=== PATIENT | female | born 1955 | race Two or more races ===

== ENCOUNTER → 2022-11-30 | Outpatient (CLI) | payer OTHER ==
[~2022-11-30] VITALS: Ht 160 cm; Wt 97.1 kg
[~2022-11-30] MED LIST: ADENOSINE 82 MG in GIVE UN-DILUTED 0 ML IV ONE
== END | disposition home or self-care (01) ==
LOC: XYW 07:50
PROVIDERS: ATTEND Specialist
DX: R07.89 Other chest pain (principal); I10 Essential (primary) hypertension; E11.9 Type 2 diabetes mellitus without complications
CPT/HCPCS: 78452; 93017; A9500; J0153

== ENCOUNTER 2023-10-27 00:50 | Inpatient (IN) | payer OTHER ==
[2023-10-27] VITALS (7 sets, daily range): BP systolic 115–159; BP diastolic 63–82; PULSE 69–76; RESP 13–20; TEMP 98.5–98.8; O2SAT 94–98
[~2023-10-27] VITALS: Ht 160 cm; Wt 104.5 kg
[2023-10-27 02:43] LABS: Basophils # (auto) 0.1 10 ^3/uL (0-0.2); Basophils % (auto) 0.7 % (0.0-2.0); Eosinophils # (auto) 0.2 10 ^3/uL (0-0.8); Eosinophils % (auto) 1.8 % (0.0-7.0); Hematocrit 38.1 % (36.0-46.0); Lymphocytes # (auto) 2.1 10 ^3/uL (0.4-5.4); Lymphocytes % (auto) 16.1 % (10.0-50.0); Mean Corpuscular Hemoglobin 30.1 pg (28.0-32.0); Mean Corpuscular Hgb Conc. 34.1 g/dL (32.0-36.0); Mean Corpuscular Volume 88.2 fL (80.0-100.0); Monocytes # (auto) 0.8 10 ^3/uL (0-1.3); Monocytes % (auto) 6.3 % (0.0-12.0); Neutrophils % (auto) 75.1 % (37.0-80.0); Nucleated Red Blood Cells % 0.1 %; Red Blood Cells 4.32 10^6/uL (4.0-5.20); Red Cell Distribution Width 14.6 % (11.8-14.3); White Blood Cell 13.3 10^3/uL (4.4-10.8)
[2023-10-27] MEDS: FUROSEMIDE 40 MG/4 ML VIAL IV ONE (02:44)
[2023-10-27 02:48] LABS: Chloride 106 mmol/L (98-107); Potassium 4.4 mmol/L (3.5-5.1); Sodium 139 mmol/L (136-145)
[2023-10-27 02:49] LABS: Anion Gap 5 (5-15); Calcium 9.7 mg/dL (8.7-10.4); Carbon Dioxide 28 mmol/L (20-30)
[2023-10-27 02:54] LABS: BUN/Creatinine Ratio 14.8 (10.0-20.0); Blood Urea Nitrogen 33 mg/dL (9-23); Glucose 229 mg/dL (74-106)
[2023-10-27 07:40] LABS: Urine Bacteria None Seen /hpf (None Seen)
[2023-10-27 07:55] LABS: Urine Blood TRACE /uL (Negative); Urine Clarity Clear (Clear); Urine Color Colorless (Yellow); Urine Protein, UAD 2+ (Negative); Urine Specific Gravity 1.008 (1.001-1.035); Urine Urobilinogen Normal (Negative); Urine WBC 2 /hpf (0 - 5)
[2023-10-27] MEDS ORDERED: HYDROcodone-ACET 5/325MG TAB PO PRN (10:00)
[2023-10-27] MEDS ORDERED: MORPHINE SULFATE INJ 2 MG/ml SYRG IV PRN (10:00)
[2023-10-27] MEDS ORDERED: NITROGLYCERIN 0.4 MG SL TAB SL PRN (10:00)
[2023-10-27] MEDS: POTASSIUM CHL 20 Meq TABLET PO SCH (10:06)
[2023-10-27] MEDS: FUROSEMIDE 40 MG/4 ML VIAL IV SCH (10:06)
[2023-10-27] MEDS: cefTRIAXone 1GM/50ML D5W 50 ML IV ONE (10:14)
[2023-10-27] MEDS: CARVEDILOL 12.5 MG TAB PO ONE (10:14)
[2023-10-27] MEDS: ENOXAPARIN SOD 30 MG/0.3 ML SYRINGE SC SCH (10:14)
[2023-10-27] MEDS: SODIUM CHLORIDE 0.9% 1,000 ML IV SCH (11:02)
[2023-10-27] MEDS: ACETAMINOPHEN 325 MG TAB PO PRN (12:31)
[2023-10-27 13:29] LABS: Protein, Urine 187.5 mg/dL (0.0-11.9)
[2023-10-27] MEDS: DOXYCYCLINE 100MG/250ML 250 ML IV SCH (13:30)
[2023-10-27 13:32] LABS: Creatinine, Urine 18.77 mg/dL (30.0-125.0); Urine Protein/Creatinine Ratio 9.99
[2023-10-27] MEDS ORDERED: DEXTROSE (50%) 50ML SYRG IV PRN ×2 (13:45→20:15)
[2023-10-27] MEDS: DOXYCYCLINE 100MG/250ML 250 ML IV ONE (14:57)
[2023-10-27 15:37] LABS: Alanine Aminotransferase 13 U/L (7-40); Albumin 3.3 g/dL (3.2-4.8); Alkaline Phosphatase 81 U/L (46-116); Anion Gap 10 (5-15); Aspartate Aminotransferase 13 U/L (13-40); BUN/Creatinine Ratio 15.6 (10.0-20.0); Blood Urea Nitrogen 36 mg/dL (9-23); Calcium 9.3 mg/dL (8.7-10.4); Carbon Dioxide 22 mmol/L (20-30); Chloride 106 mmol/L (98-107); Glucose 286 mg/dL (74-106); Potassium 4.5 mmol/L (3.5-5.1); Sodium 138 mmol/L (136-145)
[2023-10-27 15:38] LABS: Bilirubin, Total 0.5 mg/dL (0.2-1.0); Total Protein 5.8 g/dL (5.7-8.2)
[2023-10-27] MEDS: ACCU-CHEK COMFORT CURVE STRIP VI SCH ×2 (17:36→22:14)
[2023-10-27] MEDS: InsuLIN REG 1unit/0.01ml Soln (100units/ml) SC SCH ×2 (17:37→22:01)
[2023-10-27] MEDS: HEPARIN SODIUM (PORCINE) 5000 UNITS/ML 1ML VIAL SC SCH (22:05)
[2023-10-28] VITALS (8 sets, daily range): BP systolic 97–153; BP diastolic 65–81; PULSE 63–77; RESP 16–19; TEMP 97.7–99; O2SAT 93–97
[2023-10-28] MEDS: DOCUSATE SOD 100 MG CAP PO PRN (01:27)
[2023-10-28] MEDS: InsuLIN REG 1unit/0.01ml Soln (100units/ml) SC SCH (05:39)
[2023-10-28 07:32] LABS: Alanine Aminotransferase 13 U/L (7-40); Alkaline Phosphatase 81 U/L (46-116); Anion Gap 6 (5-15); Aspartate Aminotransferase 16 U/L (13-40); BUN/Creatinine Ratio 15.2 (10.0-20.0); Blood Urea Nitrogen 34 mg/dL (9-23); Calcium 9.2 mg/dL (8.7-10.4); Carbon Dioxide 26 mmol/L (20-30); Chloride 107 mmol/L (98-107); Glucose 104 mg/dL (74-106); Potassium 3.9 mmol/L (3.5-5.1); Sodium 139 mmol/L (136-145)
[2023-10-28 07:33] LABS: Albumin 3.2 g/dL (3.2-4.8)
[2023-10-28 07:34] LABS: Bilirubin, Total 0.5 mg/dL (0.2-1.0); Total Protein 5.7 g/dL (5.7-8.2)
[2023-10-28 07:40] LABS: Basophils # (auto) 0.1 10 ^3/uL (0-0.2); Basophils % (auto) 0.7 % (0.0-2.0); Eosinophils # (auto) 0.2 10 ^3/uL (0-0.8); Eosinophils % (auto) 2.1 % (0.0-7.0); Hematocrit 31.6 % (36.0-46.0); Hemoglobin 11.3 g/dL (12.2-16.2); Lymphocytes # (auto) 2.2 10 ^3/uL (0.4-5.4); Lymphocytes % (auto) 29.4 % (10.0-50.0); Mean Corpuscular Hemoglobin 33.3 pg (28.0-32.0); Mean Corpuscular Hgb Conc. 35.7 g/dL (32.0-36.0); Mean Corpuscular Volume 93.3 fL (80.0-100.0); Monocytes # (auto) 0.7 10 ^3/uL (0-1.3); Monocytes % (auto) 8.5 % (0.0-12.0); Neutrophils # (auto) 4.5 10 ^3/uL (1.6-8.6); Neutrophils % (auto) 59.3 % (37.0-80.0); Red Blood Cells 3.39 10^6/uL (4.0-5.20); Red Cell Distribution Width 14.4 % (11.8-14.3); White Blood Cell 7.6 10^3/uL (4.4-10.8)
[2023-10-28] MEDS: cefTRIAXone 1GM/50ML D5W 50 ML IV SCH (09:25)
[2023-10-28] MEDS ORDERED: DIPH-751 PO (10:22)
[2023-10-28] MEDS ORDERED: SERT-206 PO (10:22)
[2023-10-28] MEDS ORDERED: CYCL-839 PO (10:22)
[2023-10-28] MEDS ORDERED: CARV-214 OR (10:22)
[2023-10-28] MEDS ORDERED: FURO20TA3 PO (10:22)
[2023-10-28] MEDS ORDERED: ATOR-507 PO (10:22)
[2023-10-28] MEDS ORDERED: ALEN70TA74 PO (10:22)
[2023-10-28] MEDS ORDERED: GABA-1250 PO (10:22)
[2023-10-28] MEDS ORDERED: FINE20TA PO (10:22)
[2023-10-28] MEDS ORDERED: ASPI-543 PO (10:22)
[2023-10-28] MEDS ORDERED: LINA145C OR (10:22)
[2023-10-28] MEDS ORDERED: SUMA25TA2 PO (10:22)
[2023-10-28] MEDS ORDERED: AML5T PO (10:22)
[2023-10-28] MEDS: GABAPENTIN 300 MG CAP PO ONE (16:08)
[2023-10-28] MEDS: hydrALAZINE HCL 20 MG/ML VL IV PRN (16:09)
[2023-10-28] MEDS: GABAPENTIN 300 MG CAP PO SCH (22:16)
[2023-10-29 05:00] VITALS: BP 158/61; PULSE 73; RESP 18; TEMP 98.4; O2SAT 98
[2023-10-29 08:00] VITALS: PULSE 62; PULSE 64; RESP 16; O2SAT 96
[2023-10-29 08:42] VITALS: BP 132/71; PULSE 64; RESP 16; TEMP 98.9; O2SAT 96
[2023-10-29 12:44] VITALS: BP 122/59; PULSE 70; RESP 19; TEMP 98.7; O2SAT 95
[2023-10-29] MEDS ORDERED: DOXY-448 PO (13:49)
[2023-10-29 14:27] VITALS: BP 153/77; PULSE 69; TEMP 37.1; O2SAT 96
== END 2023-10-29 17:15 | disposition home or self-care (01) | DRG 603 ==
LOC: ER 00:50 → TELE 09:55 → TELE-WESTW 14:21
PROVIDERS: ADMIT Nurse Practitioner Family; ATTEND Nurse Practitioner Family
DX: L03.116 Cellulitis of left lower limb (principal); I13.0 Hypertensive heart and chronic kidney disease with heart failure and stage 1 through stage 4 chronic kidney disease, or unspecified chronic kidney disease; N17.9 Acute kidney failure, unspecified; Z68.41 Body mass index [BMI] 40.0-44.9, adult; I50.32 Chronic diastolic (congestive) heart failure; N18.32 Chronic kidney disease, stage 3b; E11.22 Type 2 diabetes mellitus with diabetic chronic kidney disease; E78.00 Pure hypercholesterolemia, unspecified; I45.10 Unspecified right bundle-branch block; E66.9 Obesity, unspecified; Z79.4 Long term (current) use of insulin; Z79.899 Other long term (current) drug therapy
CPT/HCPCS: 36415; 71045; 73610; 73700; 76775; 80048; 80053; 81001; 82570; 82962; 83036; 83880; 84156; 84443; 84484; 85025; 85379; 93005; 93306; 93971; 96365; 96372; 96375; G0378; J1815; J3490

== ENCOUNTER → 2024-07-21 | Outpatient (CLI) | payer OTHER ==
[~2024-07-21] MED LIST changes: -ADENOSINE 82 MG in GIVE UN-DILUTED 0 ML IV ONE; +ALEN70TA74 PO; +AML5T PO; +ASPI-543 PO; +ATOR-507 PO; +CARV-214 OR; +DOXY100C79 PO; +FINE20TA PO; +FURO20TA3 PO; +GABA-1250 PO; +LINA145C OR; +SERT-206 PO; +SUMA25TA2 PO
[2024-07-21 09:43] LABS: Urine Bacteria None Seen /hpf (None Seen)
[2024-07-21 10:00] LABS: Urine Blood 1+ /uL (Negative); Urine Clarity Clear (Clear); Urine Color Light-Yellow (Yellow); Urine Mucus FEW (None Seen); Urine Protein, UAD 3+ (Negative); Urine Specific Gravity 1.016 (1.001-1.035); Urine Squamous Epithelial Cell FEW /hpf (<5); Urine Urobilinogen Normal (Negative); Urine WBC 3 /HPF (0-5)
[2024-07-21 10:16] LABS: Alanine Aminotransferase 17 U/L (7-40); Alkaline Phosphatase 81 U/L (46-116); Anion Gap 10 (5-15); Aspartate Aminotransferase 18 U/L (13-40); BUN/Creatinine Ratio 15.2 (10.0-20.0); Basophils # (auto) 0.1 10 ^3/uL (0-0.2); Basophils % (auto) 0.6 % (0.0-2.0); CRP High Sensitivity 0.25 mg/dL (<1.0); Calcium 9.2 mg/dL (8.7-10.4); Carbon Dioxide 22 mmol/L (20-31); Cholesterol 149 mg/dL (< 200); Eosinophils # (auto) 0.3 10 ^3/uL (0-0.8); Eosinophils % (auto) 3.6 % (0.0-7.0); Hematocrit 33.9 % (36.0-46.0); Hemoglobin 11.4 g/dL (12.2-16.2); LDL Cholesterol 67 mg/dL (< 100); Lymphocytes # (auto) 1.6 10 ^3/uL (0.4-5.4); Lymphocytes % (auto) 18.9 % (10.0-50.0); Mean Corpuscular Hgb Conc. 33.5 g/dL (32.0-36.0); Mean Corpuscular Volume 92.6 fL (80.0-100.0); Monocytes # (auto) 0.6 10 ^3/uL (0-1.3); Monocytes % (auto) 6.6 % (0.0-12.0); Neutrophils % (auto) 70.3 % (37.0-80.0); Platelet Count (auto) 235 10^3/uL (140-450); Potassium 4.7 mmol/L (3.5-5.1); Red Blood Cells 3.66 10^6/uL (4.0-5.20); Red Cell Distribution Width 14.6 % (11.8-14.3); Sodium 142 mmol/L (136-145); Total Protein 6.8 g/dL (5.7-8.2); White Blood Cell 8.5 10^3/uL (4.4-10.8)
[2024-07-21 10:18] LABS: Bilirubin, Total 0.3 mg/dL (0.2-1.0); Blood Urea Nitrogen 51 mg/dL (9-23); Chloride 110 mmol/L (98-107); Glucose 237 mg/dL (74-106); HDL Cholesterol 37 mg/dL (40-59); Triglycerides 231 mg/dL (< 150)
[2024-07-21 10:43] LABS: Erythrocyte Sedimentation Rate 71 mm/hr (0-20)
[2024-07-22 08:07] LABS: Complement C3 142 mg/dL (82-167)
[2024-07-22 14:07] LABS: Anti-dsDNA Antibody 12 IU/mL (0-9)
== END | disposition home or self-care (01) ==
LOC: LAB 09:08
PROVIDERS: ATTEND Internal Medicine Rheumatology
DX: I12.9 Hypertensive chronic kidney disease with stage 1 through stage 4 chronic kidney disease, or unspecified chronic kidney disease (principal); E11.22 Type 2 diabetes mellitus with diabetic chronic kidney disease; N18.9 Chronic kidney disease, unspecified; M32.9 Systemic lupus erythematosus, unspecified; M25.50 Pain in unspecified joint
CPT/HCPCS: 36415; 80053; 80061; 81001; 82043; 83036; 85025; 85652; 86141; 86160; 86225

== ENCOUNTER → 2024-08-11 | Outpatient (CLI) | payer MEDICAID ==
[2024-08-11 11:53] LABS: Alanine Aminotransferase 15 U/L (7-40); Albumin 3.6 g/dL (3.2-4.8); Alkaline Phosphatase 84 U/L (46-116); Anion Gap 9 (5-15); Aspartate Aminotransferase 14 U/L (13-40); BUN/Creatinine Ratio 17.3 (10.0-20.0); Calcium 8.9 mg/dL (8.7-10.4); Carbon Dioxide 23 mmol/L (20-31); LDL Cholesterol 77 mg/dL (< 100); Sodium 141 mmol/L (136-145); Total Protein 6.1 g/dL (5.7-8.2)
[2024-08-11 11:54] LABS: Bilirubin, Total 0.4 mg/dL (0.2-1.0); Cholesterol 142 mg/dL (< 200)
[2024-08-11 12:00] LABS: Blood Urea Nitrogen 52 mg/dL (9-23); Chloride 109 mmol/L (98-107); Glucose 257 mg/dL (74-106); HDL Cholesterol 35 mg/dL (40-59); Triglycerides 161 mg/dL (< 150)
[2024-08-11 12:35] LABS: Creatinine, Urine 74.98 mg/dL (30.0-125.0)
[2024-08-11 12:51] LABS: Micro Albumin > 3800.0 mg/L (<30.0)
== END | disposition home or self-care (01) ==
LOC: LAB 10:50
PROVIDERS: ATTEND Internal Medicine Endocrinology, Diabetes & Metabolism
DX: E11.65 Type 2 diabetes mellitus with hyperglycemia (principal)
CPT/HCPCS: 36415; 80053; 80061; 82043; 82570; 83036

== ENCOUNTER 2024-09-21 11:01 | Outpatient (CLI) | payer MEDICAID ==
[2024-09-21 11:23] LABS: Basophils # (auto) 0.1 10 ^3/uL (0-0.2); Eosinophils # (auto) 0.3 10 ^3/uL (0-0.8); Eosinophils % (auto) 3.6 % (0.0-7.0); Hematocrit 29.7 % (36.0-46.0); Hemoglobin 10.4 g/dL (12.2-16.2); Lymphocytes # (auto) 1.5 10 ^3/uL (0.4-5.4); Mean Corpuscular Hemoglobin 31.5 pg (28.0-32.0); Mean Corpuscular Volume 90.1 fL (80.0-100.0); Monocytes # (auto) 0.5 10 ^3/uL (0-1.3); Monocytes % (auto) 6.7 % (0.0-12.0); Neutrophils % (auto) 68.7 % (37.0-80.0); Nucleated Red Blood Cells % 0.1 %; Platelet Count (auto) 193 10^3/uL (140-450); Red Cell Distribution Width 14.8 % (11.8-14.3); White Blood Cell 7.3 10^3/uL (4.4-10.8)
[2024-09-21 12:05] LABS: Alanine Aminotransferase 24 U/L (7-40); Albumin 3.6 g/dL (3.2-4.8); Alkaline Phosphatase 75 U/L (46-116); Anion Gap 10 (5-15); Aspartate Aminotransferase 26 U/L (<34); BUN/Creatinine Ratio 13.8 (10.0-20.0); Calcium 9.1 mg/dL (8.7-10.4); Carbon Dioxide 23 mmol/L (20-31); Magnesium 2.1 mg/dL (1.6-2.6); Potassium 4.9 mmol/L (3.5-5.1); Sodium 144 mmol/L (136-145)
[2024-09-21 12:06] LABS: Phosphorus 4.6 mg/dL (2.4-5.1)
[2024-09-21 12:07] LABS: Bilirubin, Total 0.3 mg/dL (0.2-1.0); Blood Urea Nitrogen 48 mg/dL (9-23); Chloride 111 mmol/L (98-107); Glucose 142 mg/dL (74-106)
== END 2024-09-21 17:00 | disposition home or self-care (01) ==
LOC: LAB 11:01
PROVIDERS: ATTEND Internal Medicine Nephrology
DX: E11.22 Type 2 diabetes mellitus with diabetic chronic kidney disease (principal); E11.21 Type 2 diabetes mellitus with diabetic nephropathy; E21.3 Hyperparathyroidism, unspecified; E03.9 Hypothyroidism, unspecified; N18.30 Chronic kidney disease, stage 3 unspecified; M10.9 Gout, unspecified; E55.9 Vitamin D deficiency, unspecified; N39.0 Urinary tract infection, site not specified; D63.1 Anemia in chronic kidney disease; R80.9 Proteinuria, unspecified
CPT/HCPCS: 36415; 80053; 82306; 83036; 83735; 83970; 84100; 84439; 84443; 85025

== ENCOUNTER 2024-10-09 13:02 | Emergency (ER) | payer MEDICAID ==
[~2024-10-09] VITALS: Ht 160 cm; Wt 102.3 kg
--- NOTE | 2024-10-09 13:42 | ED.PDOC ---
GI ASSESSMENT HPI Comments 69 year old female with a Hx of CKF, DM, High lipids, and HTN was BIBA for the c/c of N/V with associated Dizziness. Per EMS pt has stage 5 CKD and needs dialysis, but is afraid of being Dialyzed. Pt also notes of SOB with her RA being 90% on route. No other associated symptoms, modifiers, recent injuries or sick contacts present at this time. Chief Complaint: Nausea/Vomiting Time Seen by MD: 13:36 Primary Care Provider: MIRTHA Reviewed Notes: Nurses Notes, Certified Legal Secretary Specialist Notes, Medications, Allergies Allergies: Coded Allergies: NO KNOWN ALLERGIES (Unverified , 11/30/22) Home Meds Active Scripts Sulfamethoxazole W/Trimethopri (Bactrim Ds Tablet) 1 Tab Tb, 1 TAB PO BID for 7 Days, #14 TAB Prov:MIHAI MORALES MD 10/09/24 Doxycycline (Monohydrate) (Doxycycline) 100 Mg Cap, 100 MG PO BID for 14 Days, #28 CAP Prov:MEGAN CASTLE PORCELAIN SLUSHER 10/29/23 Reported Medications Sumatriptan Succinate (Sumatriptan Succinate) 25 Mg Tab, 25 MG PO, MG 10/28/23 Amlodipine Besylate (NORVASC TABLET) 5 Mg Tb, 2 TAB PO DAILY, #30 TAB 5 Refills 10/28/23 Linaclotide Base (LINZESS) 145 Mcg Cap, 145 MCG OR, CAP 10/28/23 Carvedilol (COREG) 3.125 Mg Tab, 3.125 MG OR, TAB 10/28/23 Sertraline Hcl (Sertraline Hcl) 50 Mg Tab, 25 MG PO DAILY for 30 Days, MG 10/28/23 Alendronate Sodium (Alendronate Sodium) 70 Mg Tab, 70 MG PO Q7D, TAB 10/28/23 Aspirin (Aspir-Low) 81 Mg Tab, 81 MG PO DAILY for 30 Days, MG 10/28/23 Finerenone (Kerendia) 20 Mg Tab, 20 MG PO DAILY, TAB 10/28/23 Gabapentin (Gabapentin) 300 Mg Cap, 300 MG PO BID for 30 Days, MG 10/28/23 Atorvastatin Calcium (Lipitor) 40 Mg Tab, 1 TAB PO DAILY, #30 TAB 5 Refills 10/28/23 Furosemide (Furosemide) 20 Mg Tab, 20 MG PO BIDD for 30 Days, MG 10/28/23 Information Source: Patient, Emergency Med Personnel Mode of Arrival: EMS Timing: Days Duration: Since onset, Days Prehospital treatment: Oxygen Quality: None Vomitus: Watery Stool: Normal Severity: Moderate Recent: None Recent Hx of: Diabetes Pain Location: Diffuse Modifying Factors: Exertion, Food, Position, Movement Associated sign and symptoms: Nausea, Vomiting Past Medical History PAST MEDICAL HISTORY: CKF, DM, High Lipids, HTN Surgical History: Cholecystectomy 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 History Family History Family History: Unknown Social History Smoker: Non-Smoker Alcohol: Denies ETOH Use Drugs: Denies Drug Use Lives In: Home Constitutional: denies: chills, diaphoresis, fatigue, fever, malaise, sweats, weakness, others EENTM: denies: blurred vision, double vision, ear bleeding, ear discharge, ear drainage, ear pain, ear ringing, eye pain, eye redness, hearing loss, mouth pain, mouth swelling, nasal discharge, nose bleeding, nose congestion, nose pain, photophobia, tearing, throat pain, throat swelling, voice changes, others Respiratory: denies: cough, hemoptysis, orthopnea, SOB at rest, shortness of breath, SOB with excertion, stridor, wheezing, others Cardiovascular: denies: chest pain, dizzy spells, diaphoresis, Dyspnea on exertion, edema, irregular heart beat, left arm pain, lightheadedness, palpitations, PND, syncope, others Gastrointestinal: reports: nausea, vomiting; denies: abdomen distended, abdominal pain, blood streaked bowels, constipated, diarrhea, dysphagia, difficulty swallowing, hematemesis, melena, poor appetite, poor fluid intake, rectal bleeding, rectal pain, others Genitourinary: denies: abnormal vagina bleeding, burning, dyspareunia, dysuria, flank pain, frequency, hematuria, incontinence, pain, , vagina discharge, urgency, others Neurological: denies: dizziness, fainting, headache, left sided numbness, left sided weakness, numbness, paresthesia, pre-existing deficit, right sided numbness, right sided weakness, seizure, speech problems, tingling, tremors, weakness, others Musculoskeletal: denies: back pain, gout, joint pain, joint swelling, muscle pain, muscle stiffness, neck pain, others Integumetry: denies: bruises, change in color, change in hair/nails, dryness, laceration, lesions, lumps, rash, wounds, others Allergic/Immunocompromised: denies: Difficulty Healing, Frequent Infections, Hives, Itching, others Hematologic/Lymphatic: denies: anemia, blood clots, easy bleeding, easy bruising, swollen glands, others Endocrine: denies: excessive hunger, excessive sweating, excessive thirst, excessive urination, flushing, intolerance to cold, intolerance to heat, unexplained weight gain, unexplained weight loss, others Psychiatric: denies: anxiety, bipolar disorder, depression, hopeless, panic disorder, schizophrenia, sleepless, suicidal, others All Other Systems: Reviewed and Negative Physical Exam General Appearance: Moderate Distress, Normal HEENT: Normal ENT Inspection, Pharynx Normal, TMs Normal Neck: Full Range of Motion, Non-Tender, Normal, Normal Inspection Respiratory: Chest Non-Tender, Lungs Clear, No Accessory Muscle Use, No Respiratory Distress, Normal Breath Sounds Cardiovascular: No Edema, No JVD, No Murmur, No Gallop, Normal Peripheral Pulses, Regular Rate/Rhythm Breast Exam: Deferred Gastrointestinal: No Organomegaly, Non Tender, No Pulsatile Mass, Normal Bowel Sounds, Soft Genitalia: Deferred Pelvic: Deferred Rectal: Deferred Extremities: No calf tenderness, Normal capillary refill, Normal inspection, Normal range of motion, Non-tender, No pedal edema Musculoskeletal : Apperance: Normal Neurologic: Alert, soil and plant scientist II-XII nml as Tested, No Motor Deficits, Normal Affect, Normal Mood, No Sensory Deficits Cerebellar Function: Normal Reflexes: Normal Skin: Dry, Normal Color, Warm Peripheral Pulses: 3+ Radial (R), 3+ Radial (L) Lymphatic: No Adenopathy Was a procedure done? Was a procedure done?: No GI differential Dx Differential Diagnosis: Bowel Obstruction, Cholangitis, Cholecystitis, Constipation, Diverticular disease, Dysmenorrhea, Esophagitis, Gastritis/PUD, Gastroenteritis, GI hemorrhage, Inflammatory BD, Ovarian cyst/torsion, Pancreatitis, Urinary Obstruction, Urolithiasis, Dehydration, Electrolyte Imbalance X-Ray, Labs, Meds, VS Vital Signs Date Time Temp Pulse Resp B/P (MAP) Pulse Ox O2 Delivery O2 Flow Rate FiO2 10/09/24 16:00 68 12 140/76 (97) 96 10/09/24 14:00 68 12 96 Nasal Cannula* 1 24 10/09/24 14:00 98.6 68 12 148/76 (100) 96 98.6 10/09/24 13:28 98.1 68 16 161/78 (105) 96 98.1 Lab Test 10/09/24 14:00 10/09/24 13:47 Range/Units Urine Color Light-yellow Yellow Urine Clarity Clear Clear Urine pH 6.5 5.0-9.0 Urine Specific [place] 1.014 1.001-1.035 Urine Protein 3+ H Negative Urine Ketones Negative Negative Urine Blood Trace H Negative /uL Urine Nitrite Negative Negative Urine Bilirubin Negative Negative Urine Urobilinogen Normal Negative mg/dL Urine Leukocyte Esterase Negative Negative /uL Urine RBC None seen 0 - 4 /hpf Urine Microscopic WBC 3 0-5 /HPF Urine Squamous Epithelial Cells Few <5 /hpf Urine Bacteria Few H None Seen /hpf Urine Glucose 2+ H Normal mg/dL White Blood Count 11.7 H 4.4-10.8 10^3/uL Red Blood Count 3.86 L 4.0-5.20 10^6/uL Hemoglobin 11.6 L 12.2-16.2 g/dL Hematocrit 34.6 L 36.0-46.0 % Mean Corpuscular Volume 89.6 80.0-100.0 fL Mean Corpuscular Hemoglobin 30.1 28.0-32.0 pg Mean Corpuscular Hemoglobin Concent 33.6 32.0-36.0 g/dL Red Cell Distribution Width 13.8 11.8-14.3 % Platelet Count 238 140-450 10^3/uL Mean Platelet Volume 10.3 6.9-10.8 fL Neutrophils (%) (Auto) 83.2 H 37.0-80.0 % Lymphocytes (%) (Auto) 10.3 10.0-50.0 % Monocytes (%) (Auto) 4.4 0.0-12.0 % Eosinophils (%) (Auto) 1.5 0.0-7.0 % Basophils (%) (Auto) 0.6 0.0-2.0 % Neutrophils # (Auto) 9.8 H 1.6-8.6 10 ^3/uL Lymphocytes # (Auto) 1.2 0.4-5.4 10 ^3/uL Monocytes # (Auto) 0.5 0-1.3 10 ^3/uL Eosinophils # (Auto) 0.2 0-0.8 10 ^3/uL Basophils # (Auto) 0.1 0-0.2 10 ^3/uL Nucleated Red Blood Cells 0.0 % Sodium Level 144 136-145 mmol/L Potassium Level 3.6 3.5-5.1 mmol/L Chloride Level 104 98-107 mmol/L Carbon Dioxide Level 29 20-31 mmol/L Anion Gap 11 5-15 Blood Urea Nitrogen 98 *H 9-23 mg/dL Creatinine 4.31 H 0.550-1.02 mg/dL Glomerular Filtration Rate Calc 10 >90 mL/min BUN/Creatinine Ratio 22.7 H 10.0-20.0 Serum Glucose 202 H 74-106 mg/dL Calcium Level 9.3 8.7-10.4 mg/dL Troponin I High Sensitivity 29 </=34 ng/L PATIENT: YASMANI BIRMINGHAM ACCT: [id number] UNIT: [id number] : 1955 LOC: ER ROOM / BED: / AGE / SEX: 69 / F ADM STATUS: REG ER SERVICE 1335 ORDERING PHYSICIAN: MIHAI MORLAES MD PROCEDURE(s): CXRP - CHEST PORTABLE REASON: sob ORDER NUMBER(s): [id number], ACCESSION NUMBER(s): [id number] EXAM: XY CHEST PORTABLE HISTORY: sob COMPARISON: For reasons unknown, chest x-ray dated 10/27/2023 was not made available in the PACS system for viewing. TECHNIQUE: Portable AP view of the chest was performed. FINDINGS: No no pneumothorax or consolidative infiltrates. There is central interstitial prominence, although this appearance is likely exaggerated by abundant overlying soft tissue. The heart is borderline enlarged. IMPRESSION: Central interstitial prominence may be due to reactive airways disease or mild CHF, versus artifactual appearance related to the patient's large body habitus. Patient alert. Vitals stable. Chronic history. Blood sugar slightly elevated. Cardiac marker within normal limits pain Chest x-ray reviewed does show some fluid. She is waiting for tunneled catheter for possible dialysis. Urine does have mild bacteria. Kidney function elevated. Possibly any dialysis. Patient insists on going home. Abdomen is soft nontender. No sepsis. Mentating well. Pristine neurological exam. Was told to come back to get a tunneled catheter on Saturday. Possible pneumonitis. Was given prescription of Bactrim antibiotic. Explained to the patient. Continue monitoring. Was told to follow up with her primary care physician. Was told to come back if there is any problem. Time of 1ST Reevaluation: 14:07 Reevaluation 1ST: Improved Patient Education/Counseling: Diagnosis, Treatment, Need For Follow Up Family Education/Counseling: No Family Present SEPSIS Sepsis Screen Date sepsis recognized/suspect: Oct 09, 2024 Time Sepsis recognized/suspect: 1304 Recent Procedure: No On Antibiotic Therapy: No Respiratory Rate >20: No Heart Rate >90: No Temp<36 C (96.8 F) or >38.3 C: No SBP <90 or MAP <65 mmHG: No New Acute Mental Status Change: No Is the patient on CPAP, BIPAP,: No Physician Orders Chest Portable (10/09/24 13:35) Piperacillin-Tazob 3.375gm (Zosyn 3.375g (10/09/24 17:45) Vital Signs Date Time Temp Pulse Resp B/P (MAP) Pulse Ox O2 Delivery O2 Flow Rate FiO2 10/09/24 16:00 68 12 140/76 (97) 96 10/09/24 14:00 68 12 96 Nasal Cannula* 1 24 10/09/24 14:00 98.6 68 12 148/76 (100) 96 98.6 10/09/24 13:28 98.1 68 16 161/78 (105) 96 98.1 Laboratory Tests Test 10/09/24 13:47 White Blood Count 11.7 10^3/uL (4.4-10.8) H Departure 1 Departure Time of Disposition: 16:18 Impression: Primary Impression: Pneumonitis Additional Impressions: Chronic kidney disease Qualified Codes: N18.9 - Chronic kidney disease, unspecified Uncontrolled diabetes mellitus Qualified Codes: E13.65 - Other specified diabetes mellitus with hyperglycemia Disposition: 01 HOME / SELF CARE / HOMELESS Condition: Good e-Prescriptions Sulfamethoxazole W/Trimethopri (Bactrim Ds Tablet) 1 Tab Tb 1 TAB PO BID for 7 Days, #14 TAB Prov: MIHAI MORALES MD 10/09/24 Discharged With: Self Critical Care Note Critical Care Time?: No Stability Stability form required: No Heart Score Heart Score: Heart Score Response (Comments) Value History N/A 0 EKG N/A 0 Age N/A 0 Risk Factors N/A 0 Troponin N/A 0 Total 0 I personally scribed for MIHAI MORALES MD ([email or web address]) on 10/09/24 at 13:42. Electronically submitted by Javid Petty ([email or web address]). I personally scribed for MIHAI MORALES MD ([email or web address]) on 10/09/24 at 14:20. Electronically submitted by Javid Petty ([email or web address]). MIHAI MORALES MD Oct 09, 2024 13:42
[2024-10-09 14:00] VITALS: PULSE 68; RESP 12; TEMP 98.6; O2SAT 96
[2024-10-09 14:04] LABS: Hematocrit 34.6 % (36.0-46.0); Hemoglobin 11.6 g/dL (12.2-16.2); Mean Corpuscular Hemoglobin 30.1 pg (28.0-32.0); Mean Corpuscular Volume 89.6 fL (80.0-100.0); Nucleated Red Blood Cells % 0.0 %
[2024-10-09 14:12] LABS: Chloride 104 mmol/L (98-107); Potassium 3.6 mmol/L (3.5-5.1); Sodium 144 mmol/L (136-145)
[2024-10-09 14:13] LABS: Anion Gap 11 (5-15); Calcium 9.3 mg/dL (8.7-10.4); Carbon Dioxide 29 mmol/L (20-31)
--- NOTE | 2024-10-09 14:17 | DVH ---
EXAM: XY CHEST PORTABLE HISTORY: sob COMPARISON: For reasons unknown, chest x-ray dated 10/27/2023 was not made available in the PACS syst em for viewing. TECHNIQUE: Portable AP view of the chest was performed. FINDINGS: No no pneumothorax or consolidative infiltrates. There is central interstitial prominence, although this appearance is likely exaggerated by abundant overlying soft tissue. The heart is borderline enla rged. IMPRESSION: Central interstitial prominence may be due to reactive airways disease or mild CHF, versus artifactua l appearance related to the patient's large body habitus.
[2024-10-09 14:18] LABS: BUN/Creatinine Ratio 22.7 (10.0-20.0); Glucose 202 mg/dL (74-106)
[2024-10-09 14:20] LABS: Blood Urea Nitrogen 98 mg/dL (9-23)
[2024-10-09 14:34] LABS: Urine Protein, UAD 3+ (Negative)
[2024-10-09] MEDS ORDERED: BACDST PO (17:30)
[2024-10-09] MEDS: PIPERACILLIN-TAZOB 3.375GM 100 ML IV ONE (17:45)
[2024-10-09 18:00] VITALS: BP 145/74; PULSE 69; RESP 12; O2SAT 97
== END 2024-10-09 19:04 | disposition home or self-care (01) ==
LOC: ER 13:02 → EDBD 13:02 → ER 19:04
DX: J98.4 Other disorders of lung (principal); I12.0 Hypertensive chronic kidney disease with stage 5 chronic kidney disease or end stage renal disease; E11.22 Type 2 diabetes mellitus with diabetic chronic kidney disease; N18.5 Chronic kidney disease, stage 5; E11.65 Type 2 diabetes mellitus with hyperglycemia; Z90.49 Acquired absence of other specified parts of digestive tract; Z79.82 Long term (current) use of aspirin; Z79.899 Other long term (current) drug therapy
CPT/HCPCS: 36415; 71045; 80048; 81001; 84484; 85025; 96365; 99284; J2543

== ENCOUNTER 2024-10-13 15:13 | Inpatient (IN) | payer MEDICAID ==
[~2024-10-13] VITALS: Ht 160 cm; Wt 101.0 kg
[~2024-10-13 15:13] MED LIST changes: +BACDST PO
--- NOTE | 2024-10-13 15:56 | ECG ---
[facility] Test Date: 2024-10-13 Test Time: 15:37:29 Pat Name: YASMANI BIRMINGHAM Department: ER Room: [facility] Gender: F Public Information Officer: COLT : 1955 Requested By: LIANNA MEAD Order Number: [id number] Reading MD: Meng Cavanaugh Measurements Intervals [place] Rate: 71 P: 19 AR: 192 QRS: -64 QRSD: 176 T: 4 QT: 462 QTc: 503 Interpretive Statements Sinus rhythm RBBB and LAFB Baseline wander in lead(s) III,aVF Electronically Signed On 10-15-2024 19:03:43 PDT by Meng Cavanaugh Please click the below link to view image of tracing.
--- NOTE | 2024-10-13 16:22 | DVH ---
CHEST RADIOGRAPH Indication: gen weak, dizzy/ nausea. Technique: Single frontal view of the chest was obtained Comparison: XY CHEST PORTABLE on DOS: 10/09/24, XY CHEST PORTABLE on DOS: 10/27/23 FINDINGS: Lines and Tubes: None Lungs: No focal consolidation. Pleura: No effusion. No pneumothorax. Cardiomediastinal contours: Unremarkable Bones: No acute osseous abnormality. IMPRESSION: 1. No acute cardiopulmonary disease.
[2024-10-13 16:38] LABS: Hematocrit 32.2 % (36.0-46.0); Hemoglobin 11.0 g/dL (12.2-16.2); Mean Corpuscular Hemoglobin 30.6 pg (28.0-32.0); Mean Corpuscular Volume 89.7 fL (80.0-100.0); Nucleated Red Blood Cells % 0.0 %
--- NOTE | 2024-10-13 16:45 | ED.PDOC ---
History of Present Illness HPI Comments HPI: 69 y/o F, with PMHx of DM, HTN, HLD, and thyroid disease presents to the ED for CC of dizziness. Patient states, she has been experiencing dizziness with associated symptoms of nausea and weakness x1week . Patient reports, that she was recently prescribed Bactrim antibiotics for an ear infection on Saturday (); and is unaware if symptoms may be related to new medication. Patient denies headache, vomiting, or lightheadedness. No other symptoms or modifying factors present at this time. Patient later indicated that she has some kidney disease and is supposed to get dialysis soon but has not started yet. Initial Vitals BP: 145/62 HR: 74 RR: 20 O2: 97% room air Temp: 98.7 F Past Medical History: DM, HTN, HLD, THYROID DISEASE Past Surgical History: CHOLECYSTECTOMY Social History: Denies ETOH, smoking, and drug use. Medications: BACTRIM Allergies: NITROFURANTOIN [place]: GENERALIZED WEAKNESS, DIZZINESS, NAUSEA HPI: Poor Historian. Past Medical History: Past Surgical History: REVIEW OF SYSTEMS: CONSTITUTIONAL: Denies acute: fever, diaphoresis, chills, HEAD: Denies acute: headache, photophobia Eyes: Denies acute: Double vision, vision loss, eye pain, eye discharge. EARS: Denies acute: tinnitus, hearing loss, ear discharge, ear pain, THROAT: Denies acute: sore throat, swelling, difficulty swallowing , pain with swallowing, change in voice. NECK: Denies acute: neck pain, neck swelling, stiff neck. HEART: Denies acute : chest pain, palpitations, LUNGS: Denies acute: SOB, wheezing, cough, hemoptysis ABDOMEN: Denies acute: abdominal pain, , Vomiting, diarrhea, melena , hematemesis, hematochezia SKIN: Denies acute: rash, redness, lesions, itchiness. EXTREMITIES: Denies acute: calf pain, numbness, tingling, weakness, denies pain in extremity. Denies acute: Low back pain. Neuro: Denies acute: focal neurological deficit, motor or sensory focal neurological deficit, tremors, seizure like activity, confusion, , change in mental status, loss of bowel or bladder function, cauda equina like symptoms. : Denies acute: dysuria, hematuria, flank pain, increase in urinary frequency. PSYCH: Denies acute: hallucination, suicidal ideation, homicidal ideation. FEMALE: Denies acute: abnormal vaginal bleeding, foul odor, unusual discharge. PHYSICAL EXAM: General: -----mild---acute distress, awake and alert. Head: normocephalic, atraumatic. Neck: supple, trachea is midline, no swelling. Throat: Normal phonation. Eyes:, no erythema, no purulent discharge, no proptosis, no icterus. Heart: regular rate, regular rhythm, no significant murmur appreciated. Lungs: no apparent respiratory distress, Able to speak in full sentences. No wheezing, no rhonchi, no crackles. No stridors Clear to auscultation bilaterally. Abdomen: non tender to palpation, non distended, soft, no guarding, no rebound, + bowel sounds. Wheeze Neuro: Awake, Alert, oriented to name, self, situation, follows commands GCS=15. Speech is normal. Skin: no petechia, no purpura, no cyanosis, non-pale, not jaundice. Lower extremities: --no - Pitting edema no deformity, no focal swelling, no calf TTP. Makes eye contact. moves all four extremities. Face: no apparent facial droop. PERRLA, EOM-I CN 2-12 are grossly intact, No nystagmus. No nuchal rigidity, Kernig's sign, Brudzinski's sign, no meningeal signs. ED COURSE: DISCLAIMER: This medical document was created using an electronic medical record system with voice recognition software and computerized dictation system. Although this document has been carefully reviewed, there might still be some phonetic and typographical errors. Occasional wrong-word or "sound-alike" substitutions may have occurred due to the inherent limitations of voice recognition software. These areas are purely typographical due to imperfections of the software programs and do not reflect any compromise in the patient's medical care. Please read the chart carefully and recognize, using context, where these substitutions have occurred. Chief Complaint: Dizziness Time Seen by MD: 16:15 Primary Care Provider: DIANA Reviewed Notes: Nurses Notes, Medications, Allergies Allergies: Coded Allergies: Nitrofurantoin (Verified Allergy, Mild, NAUSEA/ VOMITING, 10/09/24) Home Meds Reported Medications Sumatriptan Succinate (Sumatriptan Succinate) 25 Mg Tab, 25 MG PO, MG 10/28/23 Amlodipine Besylate (NORVASC TABLET) 5 Mg Tb, 2 TAB PO DAILY, #30 TAB 5 Refills 10/28/23 Linaclotide Base (LINZESS) 145 Mcg Cap, 145 MCG OR, CAP 10/28/23 Carvedilol (COREG) 3.125 Mg Tab, 3.125 MG OR, TAB 10/28/23 Sertraline Hcl (Sertraline Hcl) 50 Mg Tab, 25 MG PO DAILY for 30 Days, MG 10/28/23 Alendronate Sodium (Alendronate Sodium) 70 Mg Tab, 70 MG PO Q7D, TAB 10/28/23 Aspirin (Aspir-Low) 81 Mg Tab, 81 MG PO DAILY for 30 Days, MG 10/28/23 Finerenone (Kerendia) 20 Mg Tab, 20 MG PO DAILY, TAB 10/28/23 Gabapentin (Gabapentin) 300 Mg Cap, 300 MG PO BID for 30 Days, MG 10/28/23 Atorvastatin Calcium (Lipitor) 40 Mg Tab, 1 TAB PO DAILY, #30 TAB 5 Refills 10/28/23 Furosemide (Furosemide) 20 Mg Tab, 20 MG PO BIDD for 30 Days, MG 10/28/23 Discontinued Scripts Sulfamethoxazole W/Trimethopri (Bactrim Ds Tablet) 1 Tab Tb, 1 TAB PO BID for 7 Days, #14 TAB Prov:MIHAI MORALES MD 10/09/24 Information Source: Patient Mode of Arrival: Ambulatory Severity: Moderate Timing: Days Duration: Since onset Prehospital treatment: None Was a procedure done? Was a procedure done?: No EKG EKG : Pulse Rate (adult): 71 [place]: Normal Cardiac Rhythm: NSR Block: RBBB Hypertrophy: None ST: Normal Comments T-WAVE ELEVATION IN LEAD 3 Differential Dx Considerations may include: Includes but not limited to thyroid disease, encephalopathy, electrolyte abnormality, sepsis, infection, intracranial pathology, drug adverse effects, arrhythmia, kidney insufficiency, ACS, CVA, malignancy, anemia X-Ray, Labs, Meds, VS Vital Signs Date Time Temp Pulse Resp B/P (MAP) Pulse Ox O2 Delivery O2 Flow Rate FiO2 10/13/24 21:23 68 12 97 Room Air 10/13/24 21:16 97.3 68 12 177/87 (117) 97 97.3 10/13/24 16:45 71 10/13/24 15:37 71 10/13/24 15:26 98.7 74 20 145/62 (89) 97 98.7 Lab Test 10/13/24 17:52 10/13/24 16:15 10/13/24 15:32 Range/Units Troponin I High Sensitivity 28 33 </=34 ng/L White Blood Count 9.2 4.4-10.8 10^3/uL Red Blood Count 3.59 L 4.0-5.20 10^6/uL Hemoglobin 11.0 L 12.2-16.2 g/dL Hematocrit 32.2 L 36.0-46.0 % Mean Corpuscular Volume 89.7 80.0-100.0 fL Mean Corpuscular Hemoglobin 30.6 28.0-32.0 pg Mean Corpuscular Hemoglobin Concent 34.1 32.0-36.0 g/dL Red Cell Distribution Width 14.0 11.8-14.3 % Platelet Count 219 140-450 10^3/uL Mean Platelet Volume 10.4 6.9-10.8 fL Neutrophils (%) (Auto) 78.4 37.0-80.0 % Lymphocytes (%) (Auto) 15.1 10.0-50.0 % Monocytes (%) (Auto) 4.2 0.0-12.0 % Eosinophils (%) (Auto) 1.7 0.0-7.0 % Basophils (%) (Auto) 0.6 0.0-2.0 % Neutrophils # (Auto) 7.2 1.6-8.6 10 ^3/uL Lymphocytes # (Auto) 1.4 0.4-5.4 10 ^3/uL Monocytes # (Auto) 0.4 0-1.3 10 ^3/uL Eosinophils # (Auto) 0.2 0-0.8 10 ^3/uL Basophils # (Auto) 0.1 0-0.2 10 ^3/uL Nucleated Red Blood Cells 0.0 % Sodium Level 142 136-145 mmol/L Potassium Level 3.7 3.5-5.1 mmol/L Chloride Level 105 98-107 mmol/L Carbon Dioxide Level 26 20-31 mmol/L Anion Gap 11 5-15 Blood Urea Nitrogen 95 *H 9-23 mg/dL Creatinine 5.48 H 0.550-1.02 mg/dL Glomerular Filtration Rate Calc 8 >90 mL/min BUN/Creatinine Ratio 17.3 10.0-20.0 Serum Glucose 221 H 74-106 mg/dL Lactic Acid Level 1.1 0.4-2.0 mmol/L Calcium Level 9.8 8.7-10.4 mg/dL Magnesium Level 2.3 1.6-2.6 mg/dL Total Bilirubin 0.2 0.2-1.0 mg/dL Aspartate Amino Transferase (AST) 17 13-40 U/L Alanine Aminotransferase (ALT) 13 7-40 U/L Alkaline Phosphatase 85 46-116 U/L B-Type Natriuretic Peptide 103.63 0-100 pg/mL Total Protein 6.4 5.7-8.2 g/dL Albumin 3.8 3.2-4.8 g/dL Thyroid Stimulating Hormone (TSH) 1.35 0.55-4.78 uIU/mL POC Glucose 234 H 70-106 mg/dl [place] [id number] Ph: [phone] DIAGNOSTIC IMAGING Diagnostic Imaging Report : [id number] Signed PATIENT: YASMANI [place] ACCT: [id number] UNIT: [id number] : 1955 LOC: ER ROOM / BED: / AGE / SEX: 69 / F ADM STATUS: REG ER SERVICE 1554 ORDERING PHYSICIAN: LIANNA MEAD DO PROCEDURE(s): CXRP - CHEST PORTABLE REASON: gen weak, dizzy/ nausea. ORDER NUMBER(s): [id number], ACCESSION NUMBER(s): [id number] CHEST RADIOGRAPH Indication: gen weak, dizzy/ nausea. Technique: Single frontal view of the chest was obtained Comparison: XY CHEST PORTABLE on DOS: 10/09/24, XY CHEST PORTABLE on DOS: 10/27/23 FINDINGS: Lines and Tubes: None Lungs: No focal consolidation. Pleura: No effusion. No pneumothorax. Cardiomediastinal contours: Unremarkable Bones: No acute osseous abnormality. IMPRESSION: 1. No acute cardiopulmonary disease. ATED BY: ANAND GARCIA Jr., DO DICTATED DATE/TIME: 10/13/241618 SIGNED BY: ANAND GARCIA Jr., SIGNED DATE/TIME: 10/13/241618 CC: Time of 1ST Reevaluation: 16:45 Reevaluation 1ST: Unchanged Patient Education/Counseling: Diagnosis, Treatment Family Education/Counseling: No Family Present Comments Patient presented with the above HPI.---generalized weakness/dizziness---workup was initiated. patient was found with the above mentioned diagnosis. the following medications were ordered: please refer to order lists of meds and tests obtained by myself Dr. Mead. Patient ED course and VS have been stabilized. Patient has been reassessed in the ED and remained in a stable condition. Pertinent incidental findings were discussed with the patient and/or family. Patient/family voices understanding and is agreeable with plan. Patient has been observed in the ED adequate length of time to insure improvement/stability. Escalation of care considered: Consideration of escalation to observation or admission Patient was ADMITTED to the medicine team for further evaluation and treatment of their presentation. All the reports of any imaging studies that were ordered by myself were reviewed by myself. Departure 1 Departure Time of Disposition: 17:57 Impression: Primary Impression: Acute renal failure Additional Impression: Generalized weakness Disposition: ADMITTED INPATIENT Admit to: [facility] Condition: Guarded Discharged With: Self Critical Care Note Critical Care Time?: Yes (35 min-critical care time only) Heart Score Heart Score: Heart Score Response (Comments) Value History Slightly Suspicious 0 EKG Normal 0 Age >65 2 Risk Factors >3 or Hx ASHD 2 Troponin Normal limit 0 Total 4 I personally scribed for LIANNA MEAD DO ([email or web address]) on 10/13/24 at 16:45. Electronically submitted by Ivory Spears ([email or web address]). I personally scribed for LIANNA MEAD DO ([email or web address]) on 10/13/24 at 18:02. Electronically submitted by Ivory Spears ([email or web address]). I personally scribed for LIANNA MEAD DO ([email or web address]) on 10/13/24 at 23:56. Electronically submitted by Nile Blackburn ([email or web address]). LIANNA MEAD DO Oct 13, 2024 16:45
[2024-10-13 17:06] LABS: Alanine Aminotransferase 13 U/L (7-40); Albumin 3.8 g/dL (3.2-4.8); Alkaline Phosphatase 85 U/L (46-116); Anion Gap 11 (5-15); BUN/Creatinine Ratio 17.3 (10.0-20.0); Calcium 9.8 mg/dL (8.7-10.4); Carbon Dioxide 26 mmol/L (20-31); Chloride 105 mmol/L (98-107); Glucose 221 mg/dL (74-106); Magnesium 2.3 mg/dL (1.6-2.6); Potassium 3.7 mmol/L (3.5-5.1); Sodium 142 mmol/L (136-145); Total Protein 6.4 g/dL (5.7-8.2)
[2024-10-13 17:09] LABS: Blood Urea Nitrogen 95 mg/dL (9-23)
[2024-10-13 17:10] LABS: Bilirubin, Total 0.2 mg/dL (0.2-1.0)
--- NOTE | 2024-10-13 22:51 | DVHHP2 ---
History of Present Illness History of Present Illness This is a 69year old female with past medical history of type 2 diabetes, hypertension, hyperlipidemia, hypothyroidism, CKD stage V, IBS, depression, migraine, osteoporosis came to hospital with the complaint of nausea, vomiting and feeling dizzy x week which is worsen for last 3 days. Patient having 3 episodes of vomiting today morning which contain food materials but no blood mixed with vomitus. Patient also stated dizziness worsen with sudden change posture like sitting to a standing position. She had exertional SOB, unable to walk one block. Patient currently denies any fever, cough, headache, abdominal pain, diarrhea, constipation. Patient visited [facility] urgent care on 10/09/2024 and prescribed Bactrim antibiotic for possible pneumonitis and worsen symptoms after started antibiotic. Patient history of CKD stage V followed by Nephrology Dr. Elisabeth Sheriff, last visit 09/23/2024. Past Medical History: DM2, HTN, HLD, THYROID DISEASE,Depression, Migraine, OP Past Surgical History: CHOLECYSTECTOMY Social History: Denies ETOH, smoking, and drug use. Medications: BACTRIM, ALENDRONATE 70 MG, AMLODIPINE 10 MG, ATORVASTATIN 40 MG, CARVEDILOL 3.125 MG, FENERONOME 20 MG, GABAPENTIN 300 MG, LACTOLIDE 145 MG, SERTRALINE 25 MG, [id number] MG, [id number] MG, LANTUS INSULIN, AMLODIPINE 81 MG, BUMETANIDE2 MG, [id number] MG, INSULIN LISPRO, METOLAZONE5 MG, OXYBUTYNIN. Allergies: NITROFURANTOIN Review of Systems Constitutional: Yes: Weakness; No: Fever, Chills, Sweats, Malaise, Other Eyes: No: Pain, Vision change, Conjunctivae inflammation, Eyelid inflammation, Other, Redness ENT: No: Ear pain, Ear discharge, Nose pain, Nose discharge, Nose congestion, Mouth pain, Mouth swelling, Throat pain, Throat swelling, Other Respiratory: No: Cough, Dry, Shortness of breath, SOB with excertion, Wheezing, Hemoptysis, Pleuritic Pain, Sputum, Wheezing, Other Cardiovascular: Edema; No: Chest Pain, Palpitations, Orthopnea, Paroxysmal Noc. Dyspnea, Lt Headedness, Other Gastrointestinal: Nausea, Vomiting; No: Abdominal Pain, Diarrhea, Constipation, Melena, Hematochezia, Other Genitourinary: No Dysuria, No Frequency; Incontinence; No Hematuria, No Retention, No Other Musculoskeletal: No: other, neck pain, shoulder pain, arm pain, back pain, hand pain, leg pain, foot pain Skin: No: Rash, Lesions, Jaundice, Bruising, Other Neurological: No: Weakness, Numbness, Incoordination, Change in speech, Confusion, Seizures, Other Allergies: Coded Allergies: Nitrofurantoin (Verified Allergy, Mild, NAUSEA/ VOMITING, 10/09/24) Exam Vital Signs Vital Signs Date Time Temp Pulse Resp B/P (MAP) Pulse Ox O2 Delivery O2 Flow Rate FiO2 10/13/24 21:23 68 12 97 Room Air 10/13/24 21:16 97.3 177/87 (117) 97.3 General Appearance: Alert, Oriented X3, mild distress HEENT: Atraumatic, PERRLA, EOMI Respiratory: Clear to auscultation, Normal air movement Cardiovascular: Regular rate, Normal S1, Normal S2 Abdominal: Normal bowel sounds, Soft, No tenderness Extremities: No clubbing, No cyanosis, Other (1+ EDEMA BILATERAL LEG) Skin: No rashes, No breakdown, No significant lesion Neuro: Normal speech, Other (DISTURBANCE IN GAIT ) Labs/Xrays Labs Test 10/13/24 17:52 10/13/24 16:15 10/13/24 15:32 Range/Units Troponin I High Sensitivity 28 </=34 ng/L White Blood Count 9.2 4.4-10.8 10^3/uL Red Blood Count 3.59 L 4.0-5.20 10^6/uL Hemoglobin 11.0 L 12.2-16.2 g/dL Hematocrit 32.2 L 36.0-46.0 % Mean Corpuscular Volume 89.7 80.0-100.0 fL Mean Corpuscular Hemoglobin 30.6 28.0-32.0 pg Mean Corpuscular Hemoglobin Concent 34.1 32.0-36.0 g/dL Red Cell Distribution Width 14.0 11.8-14.3 % Platelet Count 219 140-450 10^3/uL Mean Platelet Volume 10.4 6.9-10.8 fL Neutrophils (%) (Auto) 78.4 37.0-80.0 % Lymphocytes (%) (Auto) 15.1 10.0-50.0 % Monocytes (%) (Auto) 4.2 0.0-12.0 % Eosinophils (%) (Auto) 1.7 0.0-7.0 % Basophils (%) (Auto) 0.6 0.0-2.0 % Neutrophils # (Auto) 7.2 1.6-8.6 10 ^3/uL Lymphocytes # (Auto) 1.4 0.4-5.4 10 ^3/uL Monocytes # (Auto) 0.4 0-1.3 10 ^3/uL Eosinophils # (Auto) 0.2 0-0.8 10 ^3/uL Basophils # (Auto) 0.1 0-0.2 10 ^3/uL Nucleated Red Blood Cells 0.0 % Sodium Level 142 136-145 mmol/L Potassium Level 3.7 3.5-5.1 mmol/L Chloride Level 105 98-107 mmol/L Carbon Dioxide Level 26 20-31 mmol/L Anion Gap 11 5-15 Blood Urea Nitrogen 95 *H 9-23 mg/dL Creatinine 5.48 H 0.550-1.02 mg/dL Glomerular Filtration Rate Calc 8 >90 mL/min BUN/Creatinine Ratio 17.3 10.0-20.0 Serum Glucose 221 H 74-106 mg/dL Lactic Acid Level 1.1 0.4-2.0 mmol/L Calcium Level 9.8 8.7-10.4 mg/dL Magnesium Level 2.3 1.6-2.6 mg/dL Total Bilirubin 0.2 0.2-1.0 mg/dL Aspartate Amino Transferase (AST) 17 13-40 U/L Alanine Aminotransferase (ALT) 13 7-40 U/L Alkaline Phosphatase 85 46-116 U/L Total Protein 6.4 5.7-8.2 g/dL Albumin 3.8 3.2-4.8 g/dL Thyroid Stimulating Hormone (TSH) 1.35 0.55-4.78 uIU/mL POC Glucose 234 H 70-106 mg/dl Assessment/Plan Assessment/Plan # ARMIDA ON CKD STAGE V -Patient came with nausea, vomiting, dizzy, bilateral leg swelling -Recently prescribed Bactrim antibiotic -Patient history of CKD stage V followed by Nephrology Dr. Elisabeth Sheriff, last visit 09/23/2024. -On admission creatinine 5.48 ,eGFR 8 Baseline 3.01 -X-ray chest: No cardiopulmonary abnormality -ECHO(10/2023) - Left ventricle was normal-sized. LVEF 55%. There was no gross wall motion abnormality. -ECHO order. -EKG: Sinus rhythm, QTc 503 -Troponin 33>28 -BMP, magnesium, phosphorus, UA ordered -Bumetanide1 mg IV b.i.d. -Metolazone 5 mg po q.d. -Nephrology consult # METABOLIC ENCEPHALOPATHY DUE TO UREMIA -S. Urea level 95 # DIZZINESS POSSIBLE DEHYDRATION -Likely patient using diuretics. # ANEMIA DUE TO CHRONIC KIDNEY DISEASE -HGB 11.1, HCT 32.2 # ESSENTIAL HYPERTENSION -Amlodipine 10 mg p.o. daily -Hydralazine 25 mg p.o. b.i.d. -Carvedilol 6.25 mg p.o. b.i.d. -Monitor blood pressure #TYPE 2 DIABETES MELLITUS WITH HYPERGLYCEMIA WITH HBA1C- 6.0 -On admission patient CMP glucose 219 -HbA1c 6.0 on 09/2024 -Lantus insulin 20 units s.c. q.h.s. -Insulin lispro sliding scale # IRRITABLE BOWEL SYNDROME -Home medication Linaclotide 145 mg. # HYPOTHYROIDISM -Levothyroxine 25 mcg po q.a.m. -THS 1.35 # DEPRESSION -Zustnsfqya12 mg p.o. daily # MIGRAINE HEADACHE -Sumatriptan 25 mg p.o. as needed # URINARY INCONTINENCE -Oxybutynin 5 mg b.i.d. # HYPERLIPIDEMIA -Atorvastatin 40 mg p.o. daily # Osteoporosis -Alendronate 70 mg p.o. #GERD -Pantoprazole 40 mg p.o. daily DIET: Clear liquid diet and advanced renal diet gradually GI prophylaxis: Pantoprazole 40 mg p.o. daily Deep VT prophylaxis: Heparin 5000 unit subcutaneously q.12 Code status: DNR Goals of care discussions, more than 29 minute spent. Case discussed with Dr. Dang Plan discussed with: Patient, Other My Orders Orders - STACY MCCALL RESIDENT Procedure Category Date Status Time Admit ADMIT 10/13/24 Transmitted 22:49 Nitroglycerin PHA 10/13/24 Transmitted Sublingual (Ntrostat 23:00 Morphine Sulfate PHA 10/13/24 Transmitted Injection 23:00 Date of Service: Oct 13, 2024 Billing Provider: SAMANTHA DANG MD Common Visit Codes: 41615-[id number] INP/OBS CARE (HIGH) Secondary Visit Codes: 53110-[id number] CARE PLAN 30 MINUTES STACY MCCALL RESIDENT Oct 13, 2024 22:51
[2024-10-13] MEDS ORDERED: NITROGLYCERIN 0.4 MG SL TAB SL PRN (23:00)
[2024-10-13] MEDS ORDERED: MORPHINE SULFATE INJ 2 MG/ml SYRG IV PRN (23:00)
[2024-10-13] MEDS: BUMETANIDE 1mg/4ml VIAL (0.25mg/ml) IV ONE (23:15)
[2024-10-13] MEDS ORDERED: DEXTROSE (50%) 50ML SYRG IV PRN (23:30)
[2024-10-14] MEDS: PANTOPRAZOLE 40 MG/10 ML VIAL INJ IV ONE (01:20)
[2024-10-14] MEDS: INSULIN LANTUS (GLARGINE) 1 /0.01ml (100units/ml) SC SCH (01:23)
[2024-10-14] MEDS: hydrALAZINE HCL 20 MG/ML VL IV ONE (02:46)
[2024-10-14] MEDS: BUMETANIDE 1mg/4ml VIAL (0.25mg/ml) IV SCH (06:24)
[2024-10-14] MEDS: LEVOTHYROXINE SODIUM 25 MCG TAB PO SCH (06:24)
[2024-10-14 06:27] LABS: Chloride 103 mmol/L (98-107); Potassium 3.7 mmol/L (3.5-5.1); Sodium 140 mmol/L (136-145)
[2024-10-14 06:28] LABS: Anion Gap 11 (5-15); Carbon Dioxide 26 mmol/L (20-31)
[2024-10-14 06:29] LABS: Calcium 9.5 mg/dL (8.7-10.4)
[2024-10-14 06:34] LABS: BUN/Creatinine Ratio 16.9 (10.0-20.0); Magnesium 2.4 mg/dL (1.6-2.6)
[2024-10-14 06:35] LABS: Glucose 244 mg/dL (74-106)
[2024-10-14 06:44] LABS: Blood Urea Nitrogen 91 mg/dL (9-23)
[2024-10-14] MEDS: ACCU-CHEK COMFORT CURVE STRIP VI SCH (07:00)
[2024-10-14] MEDS: InsuLIN REG 1unit/0.01ml Soln (100units/ml) SC SCH ×2 (07:00→21:53)
[2024-10-14] MEDS: HEPARIN SODIUM (PORCINE) 5000 UNITS/ML 1ML VIAL SC SCH (08:21)
[2024-10-14] MEDS: CARVEDILOL 3.125 MG TAB PO SCH (08:22)
[2024-10-14] MEDS: SERTRALINE HCL 50 MG TAB PO SCH (08:23)
[2024-10-14] MEDS: OXYBUTYNIN CHL 5 MG TAB PO SCH (08:23)
[2024-10-14] MEDS: ACETAMINOPHEN 325 MG TAB PO ONE (08:33)
[2024-10-14 08:35] VITALS: PULSE 72; RESP 20; O2SAT 96
[2024-10-14 09:50] LABS: Urine Protein, UAD 2+ (Negative)
--- NOTE | 2024-10-14 13:09 | DVHPN2 ---
Subjective The patient is seen and examined at bedside. Still feels nausea but no vomiting. Reviewed: Care Plan, H&P, Labs, Medications, Previous Orders, Radiology Changes from previous H/P or p: No Changes Eyes: No Pain, No Vision change, No Conjunctivae inflammation, No Eyelid inflammation, No Other, No Redness ENT: No Ear pain, No Ear discharge, No Nose pain, No Nose discharge, No Nose congestion, No Mouth pain, No Mouth swelling, No Throat pain, No Throat swelling, No Other Cardiovascular: No Chest Pain, No Palpitations, No Orthopnea, No Paroxysmal Noc. Dyspnea; Edema; No Lt Headedness, No Other Respiratory: No Cough, No Dry, No Shortness of breath, No SOB with excertion, No Wheezing, No Hemoptysis, No Pleuritic Pain, No Sputum, No Other Gastrointestinal: Nausea, Vomiting; No Abdominal Pain, No Diarrhea, No Constipation, No Melena, No Hematochezia, No Other Genitourinary: No Dysuria, No Frequency; Incontinence; No Hematuria, No Retention, No Other Musculoskeletal: No other, No neck pain, No shoulder pain, No arm pain, No back pain, No hand pain, No leg pain, No foot pain Skin: No Rash, No Lesions, No Jaundice, No Bruising, No Other Objective Vitals Vital Signs Date Time Temp Pulse Resp B/P (MAP) Pulse Ox O2 Delivery O2 Flow Rate FiO2 10/14/24 09:25 70 15 154/74 (100) 98 10/14/24 08:35 Room Air* 0 21 10/14/24 08:35 98.0 98.0 General Appearance: Alert, Oriented X3, Cooperative, No acute distress HEENT: Atraumatic, PERRLA, EOMI, Mucous membr. moist/pink Neck: Supple Lungs: Clear to auscultation, Normal air movement Cardiovascular: Regular rate, Normal S1, Normal S2, No murmurs, Gallops, Rubs Abdomen: Normal bowel sounds, Soft, No tenderness, No hepatospenomegaly Neuro: Cranial nerves 3-12 NL Psych/Mental Status: Mental status NL Medications Current Medications Medications Dose Ordered Sig/Yisel Route Start Time Stop Time Status Last Admin Dose Admin Nitroglycerin 0.4 mg Q5MINP PRN SL 10/13/24 23:00 Morphine Sulfate 2 mg Q30M PRN IV 10/13/24 23:00 Bumetanide 1 mg BIDD IV 10/14/24 06:00 10/14/24 06:24 1 MG Metolazone 5 mg DAILY PO 10/15/24 10:00 Pantoprazole Sodium 40 mg DAILY IV 10/15/24 10:00 Heparin Sodium (Porcine) 5,000 units Q12HR SC 10/14/24 10:00 10/14/24 08:21 5,000 UNITS Amlodipine Besylate 10 mg DAILY PO 10/14/24 10:00 10/14/24 08:22 10 MG Aspirin 81 mg DAILY PO 10/14/24 10:00 10/14/24 08:25 81 MG Atorvastatin Calcium 40 mg HS PO 10/14/24 22:00 Carvedilol 6.25 mg Q12HR PO 10/14/24 10:00 10/14/24 08:22 6.25 MG Hydralazine HCl 25 mg Q12HR PO 10/14/24 10:00 10/14/24 08:23 25 MG Levothyroxine Sodium 25 mcg QAM@0600 PO 10/14/24 06:00 10/14/24 06:24 25 MCG Oxybutynin Chloride 5 mg Q12HR PO 10/14/24 10:00 10/14/24 08:23 5 MG Sertraline HCl 25 mg DAILY PO 10/14/24 10:00 10/14/24 08:23 25 MG Sumatriptan Succinate 25 mg Q2HP PRN PO 10/13/24 23:30 10/14/24 07:40 25 MG Diagnostic Test (Pha) 1 strip ACHS 10/14/24 07:00 10/14/24 10:58 1 STRIP Insulin Human Regular HS SC 10/14/24 22:00 Insulin Human Regular AC SC 10/14/24 07:00 10/14/24 10:58 6 UNITS Dextrose 50 ml UD PRN IV 10/13/24 23:30 Insulin Glargine 20 units HS SC 10/14/24 00:45 10/14/24 01:23 20 UNITS Acetaminophen 650 mg Q6HP PRN PO 10/14/24 08:30 Laboratory Results Laboratory Tests 10/13/24 16:15 10/14/24 05:36 Chemistry Test 10/13/24 16:15 10/14/24 05:36 Albumin 3.8 g/dL (3.2-4.8) Calcium Level 9.8 mg/dL (8.7-10.4) 9.5 mg/dL (8.7-10.4) Magnesium Level 2.3 mg/dL (1.6-2.6) 2.4 mg/dL (1.6-2.6) Total Protein 6.4 g/dL (5.7-8.2) Phosphorus Level 5.8 mg/dL (2.4-5.1) H Cardiac Markers Test 10/13/24 16:15 B-Type Natriuretic Peptide 103.63 pg/mL (0-100) LFT Test 10/13/24 16:15 Alanine Aminotransferase (ALT) 13 U/L (7-40) Alkaline Phosphatase 85 U/L (46-116) Aspartate Amino Transferase (AST) 17 U/L (13-40) Total Bilirubin 0.2 mg/dL (0.2-1.0) HgA1c, TSH Test 10/13/24 16:15 Thyroid Stimulating Hormone (TSH) 1.35 uIU/mL (0.55-4.78) Urinalysis Test 10/14/24 09:19 Urine Color Colorless (Yellow) Urine Clarity Clear (Clear) Urine pH 6.0 (5.0-9.0) Urine Specific [place] 1.010 (1.001-1.035) Urine Protein 2+ (Negative) H Urine Ketones Negative (Negative) Urine Blood Trace /uL (Negative) H Urine Nitrite Negative (Negative) Urine Bilirubin Negative (Negative) Urine Urobilinogen Normal mg/dL (Negative) Urine Leukocyte Esterase Negative /uL (Negative) Urine RBC 1 /hpf (0 - 4) Urine Microscopic WBC 1 /HPF (0-5) Urine Squamous Epithelial Cells Few /hpf (<5) Urine Bacteria Few /hpf (None Seen) H Urine Mucus Few (None Seen) Urine Glucose 1+ mg/dL (Normal) H Labs and/or images reviewed: Labs reviewed by me Assessment/Plan Assessment/Plan # ARMIDA ON CKD STAGE V # METABOLIC ENCEPHALOPATHY DUE TO UREMIA secondary to renal failure # DIZZINESS POSSIBLE DEHYDRATION # ANEMIA DUE TO CHRONIC KIDNEY DISEASE # ESSENTIAL HYPERTENSION #TYPE 2 DIABETES MELLITUS WITH HYPERGLYCEMIA WITH HBA1C- 6.0 # IRRITABLE BOWEL SYNDROME # HYPOTHYROIDISM # DEPRESSION # MIGRAINE HEADACHE # URINARY INCONTINENCE #HYPERLIPIDEMIA # Osteoporosis #GERD Continuing current management. Waiting for emr trainer to see the patient. Continuing home medication for osteoporosis: Fosamax, Lipitor, oxybutynin, sumatriptan as needed and sertraline Continuing Synthroid. Continuing with sliding scale insulin and Lantus. Continuing with hydralazine and Coreg, continuing with amlodipine Possible need hemodialysis we will discuss with emr trainer This medical document was created using an electronic medical record system with [employer] computerized dictation system. Although this document has been carefully reviewed, there may still be some phonetic and typographical errors. These areas are purely typographical due to imperfections of the software programs, and do not reflect any compromise in the patient's medical care. Plan discussed with: Patient Date of Service: Oct 14, 2024 Billing Provider: ADALGISA ALBRECHT MD Common Visit Codes: [id number] INP/OBS CARE(HIGH) ADALGISA ALBRECHT MD Oct 14, 2024 13:08
--- NOTE | 2024-10-14 18:05 | DVHINCON2 ---
Date of service: Oct 14, 2024 Referring Physician Reason for Consultation [id number] History of Present Illness [age] y old female with past medical history of diabetes for more than 20 years, hypertension, Chronic kidney disease five, depression, migraine, osteoporosis hypothyroidism dyslipidemia questionable lupus, obesity morbid presented with chief complaints of nausea, vomiting, feeling dizzy for the last three four days Patient was advised by me to start dialysis on September 23 however she refused not to go on dialysis at that time Today patient seen and examined in emergency room she reports her pedal edema has gotten better from last month however she has above-mentioned symptoms recent Bactrim use noted Surgical history cholecystectomy She also had a kidney biopsy done in 2023 in [facility] showing diabetic nephropathy Past Medical History As per HPI Past Surgical History per HPI Allergies: Coded Allergies: Nitrofurantoin (Verified Allergy, Mild, NAUSEA/ VOMITING, 10/09/24) Home Meds Reported Medications Sumatriptan Succinate (Sumatriptan Succinate) 25 Mg Tab, 25 MG PO, MG 10/28/23 Amlodipine Besylate (NORVASC TABLET) 5 Mg Tb, 2 TAB PO DAILY, #30 TAB 5 Refills 10/28/23 Linaclotide Base (LINZESS) 145 Mcg Cap, 145 MCG OR, CAP 10/28/23 Carvedilol (COREG) 3.125 Mg Tab, 3.125 MG OR, TAB 10/28/23 Sertraline Hcl (Sertraline Hcl) 50 Mg Tab, 25 MG PO DAILY for 30 Days, MG 10/28/23 Alendronate Sodium (Alendronate Sodium) 70 Mg Tab, 70 MG PO Q7D, TAB 10/28/23 Aspirin (Aspir-Low) 81 Mg Tab, 81 MG PO DAILY for 30 Days, MG 10/28/23 Finerenone (Kerendia) 20 Mg Tab, 20 MG PO DAILY, TAB 10/28/23 Gabapentin (Gabapentin) 300 Mg Cap, 300 MG PO BID for 30 Days, MG 10/28/23 Atorvastatin Calcium (Lipitor) 40 Mg Tab, 1 TAB PO DAILY, #30 TAB 5 Refills 10/28/23 Furosemide (Furosemide) 20 Mg Tab, 20 MG PO BIDD for 30 Days, MG 10/28/23 Discontinued Scripts Sulfamethoxazole W/Trimethopri (Bactrim Ds Tablet) 1 Tab Tb, 1 TAB PO BID for 7 Days, #14 TAB Prov:CARMEN,MIHAI MD 10/09/24 Current Medications Current Medications Medications (Trade) Dose Ordered Sig/Yisel Route PRN Reason Start Time Stop Time Status Last Admin Nitroglycerin (Ntrostat Sublingual) 0.4 mg Q5MINP PRN SL FOR CHEST PAIN 10/13/24 23:00 Morphine Sulfate 2 mg Q30M PRN IV FOR CHEST PAIN 10/13/24 23:00 Bumetanide (Bumex Injection) 1 mg BIDD IV 10/14/24 06:00 10/14/24 06:24 Metolazone (Zaroxolyn) 5 mg DAILY PO 10/15/24 10:00 Pantoprazole Sodium (Protonix) 40 mg DAILY IV 10/15/24 10:00 Heparin Sodium (Porcine) 5,000 units Q12HR SC 10/14/24 10:00 10/14/24 08:21 Amlodipine Besylate (Norvasc Tablet) 10 mg DAILY PO 10/14/24 10:00 10/14/24 08:22 Aspirin 81 mg DAILY PO 10/14/24 10:00 10/14/24 08:25 Atorvastatin Calcium (Lipitor) 40 mg HS PO 10/14/24 22:00 Carvedilol (Coreg Tablet) 6.25 mg Q12HR PO 10/14/24 10:00 10/14/24 08:22 Hydralazine HCl (Apresoline Tablet) 25 mg Q12HR PO 10/14/24 10:00 10/14/24 14:46 DC 10/14/24 08:23 Insulin Glargine (Lantus) 50 units HS SC 10/14/24 22:00 10/14/24 00:39 DC Levothyroxine Sodium (Synthroid Tablet) 25 mcg QAM@0600 PO 10/14/24 06:00 10/14/24 06:24 Oxybutynin Chloride (Ditropan Tablet) 5 mg Q12HR PO 10/14/24 10:00 10/14/24 08:23 Sertraline HCl (Zoloft) 25 mg DAILY PO 10/14/24 10:00 10/14/24 08:23 Sumatriptan Succinate (Imitrex Tablet) 25 mg Q2HP PRN PO FOR HEADACHE 10/13/24 23:30 10/14/24 07:40 Diagnostic Test (Pha) (Accu-Chek Comfort Curve T) 1 strip ACHS 10/14/24 07:00 10/14/24 10:58 Insulin Human Regular (InsuLIN R) HS [place] 10/14/24 22:00 Insulin Human Regular (InsuLIN R) AC SC 10/14/24 07:00 10/14/24 10:58 Dextrose 50 ml UD PRN IV Blood Sugar LESS THAN 60 10/13/24 23:30 Insulin Glargine (Lantus) 20 units HS OH 10/14/24 00:45 10/14/24 01:23 Acetaminophen (Tylenol Tablet) 650 mg Q6HP PRN PO MILD PAIN (1-3 PAIN SCALE) 10/14/24 08:30 Hydralazine HCl (Apresoline Tablet) 50 mg TID PO 10/14/24 22:00 Family History: Cardiovascular disease G8 FATHER Diabetes mellitus G8 MOTHER FH: dementia G8 MOTHER FHx: breast cancer G8 MOTHER Hypertension G8 MOTHER G8 FATHER Social History Denies any Review of Systems As documented in HPI H&P Exam Vital Signs/I&O Vital Sign Date Time Temp Pulse Resp B/P (MAP) Pulse Ox O2 Delivery O2 Flow Rate FiO2 10/14/24 14:54 157/71 10/14/24 09:25 70 15 98 10/14/24 08:35 Room Air* 0 21 10/14/24 08:35 98.0 98.0 Physical Exam General-not in any distress HEENT-normocephalic, no icterus, no pallor, neck supple Respiratory-fair air entry bilateral, [id number] heard, Abdominal-soft, nontender, nondistended Musculoskeletal-no pedal edema, no calf tenderness Genitourinary-deferred Neuro-awake alert oriented x3, Psychiatric-not agitated, cooperative, Labs/Diagnostic Data Labs/Diagnostic Data Laboratory Tests Test 10/14/24 09:19 10/14/24 07:35 10/14/24 05:36 10/14/24 01:13 Range/Units Urine Color Colorless Yellow Urine Clarity Clear Clear Urine pH 6.0 5.0-9.0 Urine Specific [place] 1.010 1.001-1.035 Urine Protein 2+ H Negative Urine Ketones Negative Negative Urine Blood Trace H Negative /uL Urine Nitrite Negative Negative Urine Bilirubin Negative Negative Urine Urobilinogen Normal Negative mg/dL Urine Leukocyte Esterase Negative Negative /uL Urine RBC 1 0 - 4 /hpf Urine Microscopic WBC 1 0-5 /HPF Urine Squamous Epithelial Cells Few <5 /hpf Urine Bacteria Few H None Seen /hpf Urine Mucus Few None Seen Urine Glucose 1+ H Normal mg/dL POC Glucose 234 H 275 H 70-106 mg/dl Sodium Level 140 136-145 mmol/L Potassium Level 3.7 3.5-5.1 mmol/L Chloride Level 103 98-107 mmol/L Carbon Dioxide Level 26 20-31 mmol/L Anion Gap 11 5-15 Blood Urea Nitrogen 91 *H 9-23 mg/dL Creatinine 5.38 H 0.550-1.02 mg/dL Glomerular Filtration Rate Calc 8 >90 mL/min BUN/Creatinine Ratio 16.9 10.0-20.0 Serum Glucose 244 H 74-106 mg/dL Calcium Level 9.5 8.7-10.4 mg/dL Phosphorus Level 5.8 H 2.4-5.1 mg/dL Magnesium Level 2.4 1.6-2.6 mg/dL Test 10/13/24 17:52 10/13/24 16:15 10/13/24 15:32 Range/Units Troponin I High Sensitivity 28 33 </=34 ng/L White Blood Count 9.2 4.4-10.8 10^3/uL Red Blood Count 3.59 L 4.0-5.20 10^6/uL Hemoglobin 11.0 L 12.2-16.2 g/dL Hematocrit 32.2 L 36.0-46.0 % Mean Corpuscular Volume 89.7 80.0-100.0 fL Mean Corpuscular Hemoglobin 30.6 28.0-32.0 pg Mean Corpuscular Hemoglobin Concent 34.1 32.0-36.0 g/dL Red Cell Distribution Width 14.0 11.8-14.3 % Platelet Count 219 140-450 10^3/uL Mean Platelet Volume 10.4 6.9-10.8 fL Neutrophils (%) (Auto) 78.4 37.0-80.0 % Lymphocytes (%) (Auto) 15.1 10.0-50.0 % Monocytes (%) (Auto) 4.2 0.0-12.0 % Eosinophils (%) (Auto) 1.7 0.0-7.0 % Basophils (%) (Auto) 0.6 0.0-2.0 % Neutrophils # (Auto) 7.2 1.6-8.6 10 ^3/uL Lymphocytes # (Auto) 1.4 0.4-5.4 10 ^3/uL Monocytes # (Auto) 0.4 0-1.3 10 ^3/uL Eosinophils # (Auto) 0.2 0-0.8 10 ^3/uL Basophils # (Auto) 0.1 0-0.2 10 ^3/uL Nucleated Red Blood Cells 0.0 % Sodium Level 142 136-145 mmol/L Potassium Level 3.7 3.5-5.1 mmol/L Chloride Level 105 98-107 mmol/L Carbon Dioxide Level 26 20-31 mmol/L Anion Gap 11 5-15 Blood Urea Nitrogen 95 *H 9-23 mg/dL Creatinine 5.48 H 0.550-1.02 mg/dL Glomerular Filtration Rate Calc 8 >90 mL/min BUN/Creatinine Ratio 17.3 10.0-20.0 Serum Glucose 221 H 74-106 mg/dL Lactic Acid Level 1.1 0.4-2.0 mmol/L Calcium Level 9.8 8.7-10.4 mg/dL Magnesium Level 2.3 1.6-2.6 mg/dL Total Bilirubin 0.2 0.2-1.0 mg/dL Aspartate Amino Transferase (AST) 17 13-40 U/L Alanine Aminotransferase (ALT) 13 7-40 U/L Alkaline Phosphatase 85 46-116 U/L B-Type Natriuretic Peptide 103.63 0-100 pg/mL Total Protein 6.4 5.7-8.2 g/dL Albumin 3.8 3.2-4.8 g/dL Thyroid Stimulating Hormone (TSH) 1.35 0.55-4.78 uIU/mL POC Glucose 234 H 70-106 mg/dl Assessment Chronic kidney disease five now ESRD Biopsy-proven underlying diabetic nephropathy Hypertension Morbid obesity Questionable lupus follows Dr. frost however not started on any medi cations Recommendations Recommend renal replacement therapy Patient decided to get hemodialysis IR guided tunneled catheter placement visitor services coordinator for chair time Hepatitis panel We will follow closely Blood pressure control Reviewed vital signs, lab work, imaging studies, medications, microbiology, other physician recommendations Total time spent 70 minutes More than 50% of the time spent providing direct [id number] care . Thank you for allowing me to participate in the care of your patient. Plan discussed with: Patient SONYA SHANNON MD Oct 14, 2024 18:05
[2024-10-14 18:35] VITALS: BP 143/74; PULSE 72; RESP 20; TEMP 98.3; O2SAT 98
[2024-10-14 18:40] VITALS: RESP 20
[2024-10-14 20:00] VITALS: PULSE 79
[2024-10-14 21:00] VITALS: BP 146/82; PULSE 65; RESP 18; TEMP 97.5; O2SAT 97
[2024-10-14] MEDS: ATORVASTATIN 20 MG TAB PO SCH (21:19)
[2024-10-14] MEDS ORDERED: INSULIN LANTUS (GLARGINE) 1 /0.01ml (100units/ml) SC SCH (22:00)
[2024-10-14] MEDS: METOCLOPRAMIDE HCL 5MG/ml INJ 2ml VIAL IV ONE (22:05)
[2024-10-15] VITALS (14 sets, daily range): BP systolic 119–144; BP diastolic 60–79; PULSE 60–64; RESP 15–100; TEMP 97.3–98.5; O2SAT 92–100
[2024-10-15] MEDS: SODIUM CHL 0.9% 1000 ML BAG XX ONE (07:00)
[2024-10-15 07:43] LABS: INR 0.93 (0.9-1.15); Partial Thromboplastin Time 27.1 SEC (24.5-34.5); Prothrombin Time 9.9 sec (9.3-11.8)
[2024-10-15] MEDS: LIDOCAINE 2%HCL (LOCAL ANESTH.) INJ 20ML MDV ONE (11:40)
[2024-10-15] MEDS: HEPARIN SODIUM (PORCINE) 5000 UNITS/ML 1ML VIAL ONE (11:40)
[2024-10-15] MEDS: fentaNYL CITRATE 100 MCG/2 ML VL ONE (11:52)
[2024-10-15] MEDS: MIDAZOLAM HCL 2MG/2ML 2ml VIAL (1mg/ml) ONE (11:52)
--- NOTE | 2024-10-15 12:06 | DVHPN2 ---
Subjective The patient is seen and examined at bedside. Still feels nausea but no vomiting. Reviewed: Care Plan, H&P, Labs, Medications, Previous Orders, Radiology Changes from previous H/P or p: No Changes Eyes: No Pain, No Vision change, No Conjunctivae inflammation, No Eyelid inflammation, No Other, No Redness ENT: No Ear pain, No Ear discharge, No Nose pain, No Nose discharge, No Nose congestion, No Mouth pain, No Mouth swelling, No Throat pain, No Throat swelling, No Other Cardiovascular: No Chest Pain, No Palpitations, No Orthopnea, No Paroxysmal Noc. Dyspnea; Edema; No Lt Headedness, No Other Respiratory: No Cough, No Dry, No Shortness of breath, No SOB with excertion, No Wheezing, No Hemoptysis, No Pleuritic Pain, No Sputum, No Other Gastrointestinal: Nausea, Vomiting; No Abdominal Pain, No Diarrhea, No Constipation, No Melena, No Hematochezia, No Other Genitourinary: No Dysuria, No Frequency; Incontinence; No Hematuria, No Retention, No Other Musculoskeletal: No other, No neck pain, No shoulder pain, No arm pain, No back pain, No hand pain, No leg pain, No foot pain Skin: No Rash, No Lesions, No Jaundice, No Bruising, No Other Objective Vitals Vital Signs Date Time Temp Pulse Resp B/P (MAP) Pulse Ox O2 Delivery O2 Flow Rate FiO2 10/15/24 10:27 129/77 10/15/24 08:30 98.2 60 17 95 98.2 10/15/24 08:00 Room Air* 0 21 Intake/Output Intake and Output 10/15/24 07:00 Intake Total 540 ml Balance 540 ml Intake Oral 540 ml # Voids 1 General Appearance: Alert, Oriented X3, Cooperative, No acute distress HEENT: Atraumatic, PERRLA, EOMI, Mucous membr. moist/pink Neck: Supple Lungs: Clear to auscultation, Normal air movement Cardiovascular: Regular rate, Normal S1, Normal S2, No murmurs, Gallops, Rubs Abdomen: Normal bowel sounds, Soft, No tenderness, No hepatospenomegaly Neuro: Cranial nerves 3-12 NL Psych/Mental Status: Mental status NL Medications Current Medications Medications Dose Ordered Sig/Yisel Route Start Time Stop Time Status Last Admin Dose Admin Nitroglycerin 0.4 mg Q5MINP PRN SL 10/13/24 23:00 Morphine Sulfate 2 mg Q30M PRN IV 10/13/24 23:00 Bumetanide 1 mg BIDD IV 10/14/24 06:00 10/15/24 05:20 1 MG Metolazone 5 mg DAILY PO 10/15/24 10:00 Pantoprazole Sodium 40 mg DAILY IV 10/15/24 10:00 Heparin Sodium (Porcine) 5,000 units Q12HR SC 10/14/24 10:00 10/14/24 21:24 5,000 UNITS Amlodipine Besylate 10 mg DAILY PO 10/14/24 10:00 10/15/24 10:27 10 MG Aspirin 81 mg DAILY PO 10/14/24 10:00 10/14/24 08:25 81 MG Atorvastatin Calcium 40 mg HS PO 10/14/24 22:00 10/14/24 21:19 40 MG Carvedilol 6.25 mg Q12HR PO 10/14/24 10:00 10/14/24 21:20 6.25 MG Levothyroxine Sodium 25 mcg QAM@0600 PO 10/14/24 06:00 10/15/24 05:20 25 MCG Oxybutynin Chloride 5 mg Q12HR PO 10/14/24 10:00 10/14/24 21:21 5 MG Sertraline HCl 25 mg DAILY PO 10/14/24 10:00 10/15/24 10:28 25 MG Sumatriptan Succinate 25 mg Q2HP PRN PO 10/13/24 23:30 10/14/24 07:40 25 MG Diagnostic Test (Pha) 1 strip ACHS 10/14/24 07:00 10/15/24 06:05 1 STRIP Insulin Human Regular HS SC 10/14/24 22:00 10/14/24 21:53 3 UNITS Insulin Human Regular AC SC 10/14/24 07:00 10/14/24 18:05 2 UNITS Dextrose 50 ml UD PRN IV 10/13/24 23:30 Insulin Glargine 20 units HS SC 10/14/24 00:45 10/14/24 21:53 20 UNITS Acetaminophen 650 mg Q6HP PRN PO 10/14/24 08:30 Hydralazine HCl 50 mg TID PO 10/14/24 22:00 10/15/24 05:20 50 MG Laboratory Results Laboratory Tests 10/13/24 16:15 10/14/24 05:36 Coagulation Test 10/15/24 05:16 Prothrombin Time 9.9 sec (9.3-11.8) Prothrombin Time INR 0.93 (0.9-1.15) Activated Partial Thromboplast Time 27.1 SEC (24.5-34.5) Urinalysis Test 10/14/24 09:19 Urine Color Colorless (Yellow) Urine Clarity Clear (Clear) Urine pH 6.0 (5.0-9.0) Urine Specific [place] 1.010 (1.001-1.035) Urine Protein 2+ (Negative) H Urine Ketones Negative (Negative) Urine Blood Trace /uL (Negative) H Urine Nitrite Negative (Negative) Urine Bilirubin Negative (Negative) Urine Urobilinogen Normal mg/dL (Negative) Urine Leukocyte Esterase Negative /uL (Negative) Urine RBC 1 /hpf (0 - 4) Urine Microscopic WBC 1 /HPF (0-5) Urine Squamous Epithelial Cells Few /hpf (<5) Urine Bacteria Few /hpf (None Seen) H Urine Mucus Few (None Seen) Urine Glucose 1+ mg/dL (Normal) H Labs and/or images reviewed: Labs reviewed by me Assessment/Plan Assessment/Plan # ARMIDA ON CKD STAGE V # METABOLIC ENCEPHALOPATHY DUE TO UREMIA secondary to renal failure # DIZZINESS POSSIBLE DEHYDRATION # ANEMIA DUE TO CHRONIC KIDNEY DISEASE # ESSENTIAL HYPERTENSION #TYPE 2 DIABETES MELLITUS WITH HYPERGLYCEMIA WITH HBA1C- 6.0 # IRRITABLE BOWEL SYNDROME # HYPOTHYROIDISM # DEPRESSION # MIGRAINE HEADACHE # URINARY INCONTINENCE #HYPERLIPIDEMIA # Osteoporosis #GERD Continuing current management. Appreciate loss prevention officer input. Waiting for tunnel cath place for HD Will consult for outpatient chair time for HD set up Continuing home medication for osteoporosis: Fosamax, Lipitor, oxybutynin, sumatriptan as needed and sertraline Continuing Synthroid. Continuing with sliding scale insulin and Lantus. Continuing with hydralazine and Coreg, continuing with amlodipine Possible need hemodialysis we will discuss with loss prevention officer This medical document was created using an electronic medical record system with [employer] direct computerized dictation system. Although this document has been carefully reviewed, there may still be some phonetic and typographical errors. These areas are purely typographical due to imperfections of the software programs, and do not reflect any compromise in the patient's medical care. Plan discussed with: Patient My Orders Orders - ADALGISA ALBRECHT MD Procedure Category Date Status Time Mrsa Screen CARY 10/15/24 In Process 01:00 Date of Service: Oct 15, 2024 Billing Provider: ADALGISA ALBRECHT MD Common Visit Codes: [id number] INP/OBS CARE(HIGH) ADALGISA ALBRECHT MD Oct 15, 2024 12:06
[2024-10-15] MEDS: ceFAZolin 1GM/50ML 50 ML IV ONE (12:17)
--- NOTE | 2024-10-15 12:33 | DVHPN2 ---
Progress Note Date Seen: Oct 15, 2024 Medical Necessity Reason Pt with a Central, PICC or Fol: No Subjective Patient reports: No new complaints Review of Systems: Deferred Objective vital signs Vital Sign Date Time Temp Pulse Resp B/P (MAP) Pulse Ox O2 Delivery O2 Flow Rate FiO2 10/15/24 10:27 129/77 10/15/24 08:30 98.2 60 17 95 98.2 10/15/24 08:00 Room Air* 0 21 Total Intake and Output 10/14/24 10/14/24 10/15/24 15:00 23:00 07:00 Intake Total 240 ml 300 ml Balance 240 ml 300 ml medications Current Medications Medications Dose Ordered Sig/Yisel Route Start Time Stop Time Status Last Admin Dose Admin Nitroglycerin 0.4 mg Q5MINP PRN SL 10/13/24 23:00 Morphine Sulfate 2 mg Q30M PRN IV 10/13/24 23:00 Bumetanide 1 mg BIDD IV 10/14/24 06:00 10/15/24 05:20 1 MG Metolazone 5 mg DAILY PO 10/15/24 10:00 Pantoprazole Sodium 40 mg DAILY IV 10/15/24 10:00 Heparin Sodium (Porcine) 5,000 units Q12HR SC 10/14/24 10:00 10/14/24 21:24 5,000 UNITS Amlodipine Besylate 10 mg DAILY PO 10/14/24 10:00 10/15/24 10:27 10 MG Aspirin 81 mg DAILY PO 10/14/24 10:00 10/14/24 08:25 81 MG Atorvastatin Calcium 40 mg HS PO 10/14/24 22:00 10/14/24 21:19 40 MG Carvedilol 6.25 mg Q12HR PO 10/14/24 10:00 10/14/24 21:20 6.25 MG Levothyroxine Sodium 25 mcg QAM@0600 PO 10/14/24 06:00 10/15/24 05:20 25 MCG Oxybutynin Chloride 5 mg Q12HR PO 10/14/24 10:00 10/14/24 21:21 5 MG Sertraline HCl 25 mg DAILY PO 10/14/24 10:00 10/15/24 10:28 25 MG Sumatriptan Succinate 25 mg Q2HP PRN PO 10/13/24 23:30 10/14/24 07:40 25 MG Diagnostic Test (Pha) 1 strip ACHS 10/14/24 07:00 10/15/24 06:05 1 STRIP Insulin Human Regular HS [place] 10/14/24 22:00 10/14/24 21:53 3 UNITS Insulin Human Regular AC SC 10/14/24 07:00 10/14/24 18:05 2 UNITS Dextrose 50 ml UD PRN IV 10/13/24 23:30 Insulin Glargine 20 units HS SC 10/14/24 00:45 10/14/24 21:53 20 UNITS Acetaminophen 650 mg Q6HP PRN PO 10/14/24 08:30 Hydralazine HCl 50 mg TID PO 10/14/24 22:00 10/15/24 05:20 50 MG Examination: GENERAL:Normal, HEENT:Normal, NECK:Normal, LUNGS:Normal, CVS:Normal, ABDOMEN:Normal, MSK:Abnormal, SKIN:Normal, NEURO:Normal, :Normal laboratory and microbiology Laboratory Tests 10/14/24 05:36 10/13/24 16:15 Test 10/14/24 05:36 Range/Units Serum Glucose 244 H 74-106 mg/dL Problem List/Assessment/Plan Problem List/Assessment/Plan Chronic kidney disease five now ESRD Biopsy-proven underlying diabetic nephropathy Hypertension Morbid obesity Questionable lupus follows Dr. frost however not started on any medications per pt Recommendations Recommend renal replacement therapy Patient decided to get hemodialysis IR guided tunneled catheter placement creative services producer for chair time Hepatitis panel We will follow closely Blood pressure control Plan discussed with: Patient My Orders My Orders Orders - SONYA SHANNON MD Procedure Category Date Status Time Hydralazine Hcl PHA 10/14/24 In Process Tablet (Apresoline 22:00 * Radiologist Consult CONS 10/14/24 Transmitted 15:38 Hemodialysis Orders ORDERS 10/15/24 Transmitted 07:00 Dialysis Nursing KATHY 10/15/24 In Process Message 07:00 Document Fluid Input KATHY 10/15/24 In Process And Outpu 07:00 Acute Hepatitis Panel LAB 10/15/24 In Process 07:00 * Landscape And Yardwork Laborer CONS 10/15/24 Transmitted Consult SONYA SHANNON MD Oct 15, 2024 12:33
--- NOTE | 2024-10-15 12:56 | DVH ---
DATE: 10/15/2024 PROCEDURE: TUNNELED ABDOMINAL PLEURX PLACEMENT USING FLUOROSCOPY AND ULTRASOUND FOLLOWED BY PARACENTE SIS HISTORY: 69 Female requiring repeated paracentesis due to ascites. DOCUMENTATION: Informed consent was obtained and a procedural time out was performed. SEDATION: Moderate sedation was utilized during the procedure. The patient received benzodiazepines a nd opioids, the dosing of which was documented in the patient s permanent medical record. Pre-sedatio n history and evaluation revealed no contraindications to sedation. The patient s level of consciousn ess and physiologic status was monitored continuously by the physician and nursing staff throughout t he procedure. Total intra-service moderate sedation time was 30 minutes. Moderate sedation was admini stered by interventional radiology nursing staff under the direct supervision of Dr. Rivers Adequate analgesia and anxiolysis was obtained using intermittent, titrated dosages of medications with const ant monitoring of patient`s vital signs and telemetry. Total face to face sedation time: 45 minutes. FLUORO: 0.75 minutes, TECHNIQUE: The skin over the lower right abdominal wall was sterilely prepped, draped and anesthetize d with 1% lidocaine with epinephrine. The ascites pocket was accessed with a 5fr yeuh needle catheter under ultrasound guidance with an image archived in the PACS. The access was upsized and a guidewir e was then passed into the peritoneal cavity under fluoroscopy. The subcutaneous tunnel was anestheti zed with 1% lidocaine with epinephrine and a 14 Sami pleurx catheter was tunneled to the peritonea l entry site and inserted through a peel away sheath. A final radiograph was obtained. The catheter w as connected to vaccum drainage bottles and 2400cc of ascitic fluid was drained. Sterile dressings we re applied. Procedural physician complied with all CLIP criteria, including preprocedural hand hygiene and use of maximum sterile barriers including hat, gown, sterile gloves, mask, and head to toe drape. The neck and chest were prepped with chlorhexidine solution and draped in the usual sterile fashion. The prep solution was allowed to dry prior to puncture. FINDINGS: Ultrasound demonstrates a moderate ascites. The catheter is appropriately positioned within the peritoneal space. 2.4 liters of fluid drained. No complications are identified. IMPRESSION: 1. SUCCESSFUL TUNNELED ABDOMINAL PLEURX CATHETER PLACEMENT. THE CATHETER IS READY FOR USE.
[2024-10-15] MEDS: ONDANSETRON HCL 4 MG/2 ML VIAL IV ONE (13:10)
[2024-10-15] MEDS: PANTOPRAZOLE 40 MG/10 ML VIAL INJ IV SCH (14:53)
--- NOTE | 2024-10-15 16:34 | DVHSR ---
APPROVED REPORT EXAM: Two-dimensional and M-mode echocardiogram with Doppler and color Doppler. Blood Pressure: 125/70 mmHg INDICATION volume overload RISK FACTORS Height: 63, Weight: 236 DIMENSIONS LVDd5.1 (3.8-5.7cm)LA (2D)3.8 (1.9-4.0cm)Aortic Root4.0 (2.0-3.7cm) LVDs3.8 (2.5-4.0cm)LA (MM) (1.9-4.0cm)Aortic Cusp Exc2.0 (1.5-2.0cm) EF (%) 50.0 (55-70%)Rt. Atrium3.5 (1.9-4.0cm)Asc. Aorta cm Mitral Valve MitralMitral Stenosis E wave0.57m/sMV Mean GR.mmHg A wave1.06m/sMV Peak GR.mmHg E/A ratio0.52D MVAcm2 DECEL [id number] 1/2 Dpof54pm IVRTmsDop MVA2.41cm2 Aortic Valve Aortic ValveAortic Stenosis V11.14m/Giselle Mean GR.7mmHg V21.78m/Giselle Peak GR.13mmHg LVOT Diameter2.3 (1.8-2.4cm)Doppler AVA2.66cm2 Pulmonic Valve V21.06m/s Other Information Technically limited study due to body habitus. Conclusion Sinus rhythm. Aortic root enlargement. Mild LV enlargement. Valves appear to be structurally normal. Mild dilatation sinuses of Valsalva. EF of 50% with mild anterior hypokinesis. Normal RV function. Mild pulmonic insufficiency. Mild tricuspid regurgitation. No pericardial effusion masses or vegetations discernible.
[2024-10-16] VITALS (8 sets, daily range): BP systolic 122–149; BP diastolic 68–75; PULSE 50–74; RESP 17–19; TEMP 97.7–99.5; O2SAT 93–98
[2024-10-16] MEDS: ACETAMINOPHEN 325 MG TAB PO PRN (01:27)
[2024-10-16 09:51] LABS: Chloride 103 mmol/L (98-107); Potassium 3.8 mmol/L (3.5-5.1); Sodium 141 mmol/L (136-145)
[2024-10-16 09:52] LABS: Anion Gap 8 (5-15); Carbon Dioxide 30 mmol/L (20-31)
[2024-10-16 09:53] LABS: Calcium 9.0 mg/dL (8.7-10.4)
[2024-10-16 09:57] LABS: BUN/Creatinine Ratio 13.6 (10.0-20.0)
[2024-10-16 09:59] LABS: Blood Urea Nitrogen 61 mg/dL (9-23); Glucose 206 mg/dL (74-106)
[2024-10-16 10:17] LABS: Hepatitis B Surface Antigen Negative (Negative)
[2024-10-16 10:39] LABS: Hepatitis C Antibody Negative (Negative)
--- NOTE | 2024-10-16 12:22 | DVHPN2 ---
Subjective The patient is seen and examined at bedside. Still feels nausea but no vomiting. Reviewed: Care Plan, H&P, Labs, Medications, Previous Orders, Radiology Changes from previous H/P or p: No Changes Eyes: No Pain, No Vision change, No Conjunctivae inflammation, No Eyelid inflammation, No Other, No Redness ENT: No Ear pain, No Ear discharge, No Nose pain, No Nose discharge, No Nose congestion, No Mouth pain, No Mouth swelling, No Throat pain, No Throat swelling, No Other Cardiovascular: No Chest Pain, No Palpitations, No Orthopnea, No Paroxysmal Noc. Dyspnea; Edema; No Lt Headedness, No Other Respiratory: No Cough, No Dry, No Shortness of breath, No SOB with excertion, No Wheezing, No Hemoptysis, No Pleuritic Pain, No Sputum, No Other Gastrointestinal: Nausea, Vomiting; No Abdominal Pain, No Diarrhea, No Constipation, No Melena, No Hematochezia, No Other Genitourinary: No Dysuria, No Frequency; Incontinence; No Hematuria, No Retention, No Other Musculoskeletal: No other, No neck pain, No shoulder pain, No arm pain, No back pain, No hand pain, No leg pain, No foot pain Skin: No Rash, No Lesions, No Jaundice, No Bruising, No Other Objective Vitals Vital Signs Date Time Temp Pulse Resp B/P (MAP) Pulse Ox O2 Delivery O2 Flow Rate FiO2 10/16/24 10:00 50 127/68 10/16/24 09:00 98.1 19 94 98.1 10/15/24 20:00 Room Air* 0 21 Intake/Output Intake and Output 10/16/24 07:00 Intake Total 240 ml Balance 240 ml Intake Oral 240 ml # Voids 5 General Appearance: Alert, Oriented X3, Cooperative, No acute distress HEENT: Atraumatic, PERRLA, EOMI, Mucous membr. moist/pink Neck: Supple Lungs: Clear to auscultation, Normal air movement Cardiovascular: Regular rate, Normal S1, Normal S2, No murmurs, Gallops, Rubs Abdomen: Normal bowel sounds, Soft, No tenderness, No hepatospenomegaly Neuro: Cranial nerves 3-12 NL Psych/Mental Status: Mental status NL Medications Current Medications Medications Dose Ordered Sig/Yisel Route Start Time Stop Time Status Last Admin Dose Admin Nitroglycerin 0.4 mg Q5MINP PRN SL 10/13/24 23:00 Morphine Sulfate 2 mg Q30M PRN IV 10/13/24 23:00 Bumetanide 1 mg BIDD IV 10/14/24 06:00 10/16/24 06:21 1 MG Metolazone 5 mg DAILY PO 10/15/24 10:00 Pantoprazole Sodium 40 mg DAILY IV 10/15/24 10:00 10/16/24 10:12 40 MG Heparin Sodium (Porcine) 5,000 units Q12HR SC 10/14/24 10:00 10/16/24 10:27 5,000 UNITS Amlodipine Besylate 10 mg DAILY PO 10/14/24 10:00 10/15/24 10:27 10 MG Aspirin 81 mg DAILY PO 10/14/24 10:00 10/16/24 10:13 81 MG Atorvastatin Calcium 40 mg HS PO 10/14/24 22:00 10/15/24 22:09 40 MG Carvedilol 6.25 mg Q12HR PO 10/14/24 10:00 10/15/24 22:27 6.25 MG Levothyroxine Sodium 25 mcg QAM@0600 PO 10/14/24 06:00 10/16/24 06:23 25 MCG Oxybutynin Chloride 5 mg Q12HR PO 10/14/24 10:00 10/16/24 10:12 5 MG Sertraline HCl 25 mg DAILY PO 10/14/24 10:00 10/16/24 10:13 25 MG Sumatriptan Succinate 25 mg Q2HP PRN PO 10/13/24 23:30 10/15/24 22:10 25 MG Diagnostic Test (Pha) 1 strip ACHS 10/14/24 07:00 10/16/24 11:59 1 STRIP Insulin Human Regular HS SC 10/14/24 22:00 10/15/24 22:29 6 UNITS Insulin Human Regular AC SC 10/14/24 07:00 10/16/24 12:11 6 UNITS Dextrose 50 ml UD PRN IV 10/13/24 23:30 Insulin Glargine 20 units HS SC 10/14/24 00:45 10/15/24 22:28 20 UNITS Acetaminophen 650 mg Q6HP PRN PO 10/14/24 08:30 10/16/24 01:27 650 MG Hydralazine HCl 50 mg TID PO 10/14/24 22:00 10/16/24 06:22 50 MG Laboratory Results Laboratory Tests 10/13/24 16:15 10/16/24 09:35 Chemistry Test 10/16/24 09:35 Calcium Level 9.0 mg/dL (8.7-10.4) Urinalysis Test 10/14/24 09:19 Urine Color Colorless (Yellow) Urine Clarity Clear (Clear) Urine pH 6.0 (5.0-9.0) Urine Specific [place] 1.010 (1.001-1.035) Urine Protein 2+ (Negative) H Urine Ketones Negative (Negative) Urine Blood Trace /uL (Negative) H Urine Nitrite Negative (Negative) Urine Bilirubin Negative (Negative) Urine Urobilinogen Normal mg/dL (Negative) Urine Leukocyte Esterase Negative /uL (Negative) Urine RBC 1 /hpf (0 - 4) Urine Microscopic WBC 1 /HPF (0-5) Urine Squamous Epithelial Cells Few /hpf (<5) Urine Bacteria Few /hpf (None Seen) H Urine Mucus Few (None Seen) Urine Glucose 1+ mg/dL (Normal) H Microbiology Microbiology Date/Time Source Procedure Growth Status 10/15/24 01:00 Nose MRSA Screen - Final Complete Assessment/Plan Assessment/Plan # ARMIDA ON CKD STAGE V # METABOLIC ENCEPHALOPATHY DUE TO UREMIA secondary to renal failure # DIZZINESS POSSIBLE DEHYDRATION # ANEMIA DUE TO CHRONIC KIDNEY DISEASE # ESSENTIAL HYPERTENSION #TYPE 2 DIABETES MELLITUS WITH HYPERGLYCEMIA WITH HBA1C- 6.0 # IRRITABLE BOWEL SYNDROME # HYPOTHYROIDISM # DEPRESSION # MIGRAINE HEADACHE # URINARY INCONTINENCE #HYPERLIPIDEMIA # Osteoporosis #GERD Continuing current management. Appreciate inorganic chemistry professor input. Status post tunnel cath place for HD Waiting for outpatient chair time for HD set up Continuing home medication for osteoporosis: Fosamax, Lipitor, oxybutynin, sumatriptan as needed and sertraline Continuing Synthroid. Continuing with sliding scale insulin and Lantus. Continuing with hydralazine and Coreg, continuing with amlodipine Possible need hemodialysis we will discuss with inorganic chemistry professor This medical document was created using an electronic medical record system with [employer] direct computerized dictation system. Although this document has been carefully reviewed, there may still be some phonetic and typographical errors. These areas are purely typographical due to imperfections of the software programs, and do not reflect any compromise in the patient's medical care. Plan discussed with: Patient My Orders Orders - ADALGISA ALBRECHT MD Procedure Category Date Status Time Insertion Of Venous XY 10/15/24 Resulted Cath 12:35 * Die Storage Clerk CONS 10/15/24 Transmitted Consult Renal Specific DIET 10/15/24 Transmitted Diet(Renal) Dinner Date of Service: Oct 16, 2024 Billing Provider: ADALGISA ALBRECHT MD Common Visit Codes: [id number] INP/OBS CARE(HIGH) ADALGISA ALBRECHT MD Oct 16, 2024 12:22
--- NOTE | 2024-10-16 20:02 | DVHPN2 ---
Progress Note Date Seen: Oct 16, 2024 Medical Necessity Reason Pt with a Central, PICC or Fol: No Subjective Patient reports: No new complaints, Feels better Review of Systems: HEENT:Normal, CVS:Normal, RESPIRATORY:Normal, GI:Normal, :Normal, MSK:Normal, NEURO:Normal Objective vital signs Vital Sign Date Time Temp Pulse Resp B/P (MAP) Pulse Ox O2 Delivery O2 Flow Rate FiO2 10/16/24 18:33 146/72 10/16/24 17:00 98.2 65 17 94 98.2 10/16/24 08:00 Room Air* 0 21 Total Intake and Output 10/15/24 10/15/24 10/16/24 15:00 23:00 07:00 Intake Total 240 ml Balance 240 ml medications Current Medications Medications Dose Ordered Sig/Yisel Route Start Time Stop Time Status Last Admin Dose Admin Nitroglycerin 0.4 mg Q5MINP PRN SL 10/13/24 23:00 Morphine Sulfate 2 mg Q30M PRN IV 10/13/24 23:00 Bumetanide 1 mg BIDD IV 10/14/24 06:00 10/16/24 18:33 1 MG Metolazone 5 mg DAILY PO 10/15/24 10:00 10/16/24 13:21 5 MG Pantoprazole Sodium 40 mg DAILY IV 10/15/24 10:00 10/16/24 10:12 40 MG Heparin Sodium (Porcine) 5,000 units Q12HR SC 10/14/24 10:00 10/16/24 10:27 5,000 UNITS Amlodipine Besylate 10 mg DAILY PO 10/14/24 10:00 10/15/24 10:27 10 MG Aspirin 81 mg DAILY PO 10/14/24 10:00 10/16/24 10:13 81 MG Atorvastatin Calcium 40 mg HS PO 10/14/24 22:00 10/15/24 22:09 40 MG Carvedilol 6.25 mg Q12HR PO 10/14/24 10:00 10/15/24 22:27 6.25 MG Levothyroxine Sodium 25 mcg QAM@0600 PO 10/14/24 06:00 10/16/24 06:23 25 MCG Oxybutynin Chloride 5 mg Q12HR PO 10/14/24 10:00 10/16/24 10:12 5 MG Sertraline HCl 25 mg DAILY PO 10/14/24 10:00 10/16/24 10:13 25 MG Sumatriptan Succinate 25 mg Q2HP PRN PO 10/13/24 23:30 10/15/24 22:10 25 MG Diagnostic Test (Pha) 1 strip ACHS 10/14/24 07:00 10/16/24 18:33 1 STRIP Insulin Human Regular HS SC 10/14/24 22:00 10/15/24 22:29 6 UNITS Insulin Human Regular AC SC 10/14/24 07:00 10/16/24 18:47 6 UNITS Dextrose 50 ml UD PRN IV 10/13/24 23:30 Insulin Glargine 20 units HS SC 10/14/24 00:45 10/15/24 22:28 20 UNITS Acetaminophen 650 mg Q6HP PRN PO 10/14/24 08:30 10/16/24 01:27 650 MG Hydralazine HCl 50 mg TID PO 10/14/24 22:00 10/16/24 14:59 50 MG Examination: GENERAL:Normal, HEENT:Normal, NECK:Normal, LUNGS:Normal, CVS:Normal, ABDOMEN:Normal, MSK:Normal, SKIN:Normal, NEURO:Normal, :Normal laboratory and microbiology Laboratory Tests 10/16/24 09:35 10/13/24 16:15 Test 10/16/24 09:35 Range/Units Serum Glucose 206 H 74-106 mg/dL Microbiology Date/Time Source Procedure Growth Status 10/15/24 01:00 Nose MRSA Screen - Final Complete Problem List/Assessment/Plan Problem List/Assessment/Plan ESRD Biopsy-proven underlying diabetic nephropathy Hypertension Morbid obesity Questionable lupus follows Dr. frost however not started on any medications per pt Recommendations first HD 10/15-tolerated well ,next HD tomorrow IR guided tunneled catheter placement imaging services director for chair time with DCD pending Hepatitis panel We will follow closely Blood pressure control Plan discussed with: Patient My Orders My Orders Orders - SONYA SHANNON MD Procedure Category Date Status Time Bumetanide Tablet PHA 10/17/24 Logged (Bumex Tablet) 06:00 Magnesium LAB 10/17/24 Verified 04:00 Phosphorus LAB 10/17/24 Verified 04:00 Vitamin D, 25-Hydroxy LAB 7/12/25 Verified 04:00 Parathyroid Hormone LAB 10/17/24 Verified Intact 04:00 SONYA SHANNON MD Oct 16, 2024 20:02
[2024-10-17] VITALS (8 sets, daily range): BP systolic 132–171; BP diastolic 74–84; PULSE 60–66; RESP 14–19; TEMP 97.8–98.6; O2SAT 94–97
[2024-10-17] MEDS: BUMETANIDE 1 MG TAB PO SCH (05:41)
[2024-10-17 06:54] LABS: Anion Gap 10 (5-15); Carbon Dioxide 29 mmol/L (20-31); Chloride 102 mmol/L (98-107); Potassium 3.6 mmol/L (3.5-5.1); Sodium 141 mmol/L (136-145)
[2024-10-17 06:55] LABS: Calcium 9.3 mg/dL (8.7-10.4)
[2024-10-17 07:15] LABS: BUN/Creatinine Ratio 13.1 (10.0-20.0); Magnesium 2.1 mg/dL (1.6-2.6)
[2024-10-17 07:16] LABS: Blood Urea Nitrogen 63 mg/dL (9-23); Glucose 148 mg/dL (74-106)
--- NOTE | 2024-10-17 08:08 | DVHPN2 ---
Progress Note Date Seen: Oct 17, 2024 Medical Necessity Reason Pt with a Central, PICC or Fol: No Subjective Patient reports: Feels better, Other Review of Systems: Deferred Objective vital signs Vital Sign Date Time Temp Pulse Resp B/P (MAP) Pulse Ox O2 Delivery O2 Flow Rate FiO2 10/17/24 05:41 110/62 10/17/24 05:00 98.2 62 18 96 98.2 10/16/24 20:00 Room Air* 0 21 Total Intake and Output 10/16/24 10/16/24 10/17/24 15:00 23:00 07:00 Intake Total 230 ml 690 ml 750 ml Balance 230 ml 690 ml 750 ml medications Current Medications Medications Dose Ordered Sig/Yisel Route Start Time Stop Time Status Last Admin Dose Admin Nitroglycerin 0.4 mg Q5MINP PRN SL 10/13/24 23:00 Morphine Sulfate 2 mg Q30M PRN IV 10/13/24 23:00 Metolazone 5 mg DAILY PO 10/15/24 10:00 10/16/24 13:21 5 MG Pantoprazole Sodium 40 mg DAILY IV 10/15/24 10:00 10/16/24 10:12 40 MG Heparin Sodium (Porcine) 5,000 units Q12HR SC 10/14/24 10:00 10/16/24 21:09 5,000 UNITS Amlodipine Besylate 10 mg DAILY PO 10/14/24 10:00 10/15/24 10:27 10 MG Aspirin 81 mg DAILY PO 10/14/24 10:00 10/16/24 10:13 81 MG Atorvastatin Calcium 40 mg HS PO 10/14/24 22:00 10/16/24 21:14 40 MG Carvedilol 6.25 mg Q12HR PO 10/14/24 10:00 10/16/24 21:13 6.25 MG Levothyroxine Sodium 25 mcg QAM@0600 PO 10/14/24 06:00 10/17/24 05:41 25 MCG Oxybutynin Chloride 5 mg Q12HR PO 10/14/24 10:00 10/16/24 21:13 5 MG Sertraline HCl 25 mg DAILY PO 10/14/24 10:00 10/16/24 10:13 25 MG Sumatriptan Succinate 25 mg Q2HP PRN PO 10/13/24 23:30 10/15/24 22:10 25 MG Diagnostic Test (Pha) 1 strip ACHS 10/14/24 07:00 10/17/24 05:49 1 STRIP Insulin Human Regular HS SC 10/14/24 22:00 10/16/24 21:06 8 UNITS Insulin Human Regular AC SC 10/14/24 07:00 10/17/24 05:47 2 UNITS Dextrose 50 ml UD PRN IV 10/13/24 23:30 Insulin Glargine 20 units HS SC 10/14/24 00:45 10/16/24 21:07 20 UNITS Acetaminophen 650 mg Q6HP PRN PO 10/14/24 08:30 10/17/24 05:42 650 MG Hydralazine HCl 50 mg TID PO 10/14/24 22:00 10/16/24 21:14 50 MG Bumetanide 1 mg BIDD PO 10/17/24 06:00 10/17/24 05:41 1 MG Examination: GENERAL:Normal, HEENT:Normal, NECK:Normal, LUNGS:Normal, CVS:Normal, ABDOMEN:Normal, MSK:Normal, SKIN:Normal, NEURO:Normal, :Normal laboratory and microbiology Laboratory Tests 10/17/24 06:15 10/13/24 16:15 Test 10/17/24 06:15 Range/Units Serum Glucose 148 H 74-106 mg/dL Microbiology Date/Time Source Procedure Growth Status 10/15/24 01:00 Nose MRSA Screen - Final Complete Problem List/Assessment/Plan Problem List/Assessment/Plan ESRD Biopsy-proven underlying diabetic nephropathy--follows my clinic Hypertension Morbid obesity Questionable lupus follows Dr. frost however not started on any medications per pt Recommendations first HD 10/15-tolerated well ,next HD saturday s/p IR guided tunneled catheter placement guest services director for chair time with DCD pending Hepatitis panel wnl We will follow closely Blood pressure control blister on chest wall ?allergy--defer to hospitalist Plan discussed with: Patient My Orders My Orders Orders - SONYA SHANNON MD Procedure Category Date Status Time Bumetanide Tablet PHA 10/17/24 In Process (Bumex Tablet) 06:00 Vitamin D, 25-Hydroxy LAB 10/17/24 In Process 04:00 Hemodialysis Orders ORDERS 10/17/24 Transmitted 04:00 Basic Metabolic Panel LAB 10/19/24 Verified 05:00 SONYA SHANNON MD Oct 17, 2024 08:08
--- NOTE | 2024-10-17 15:05 | DVHPN2 ---
Subjective The patient is seen and examined at bedside. Still feels nausea but no vomiting. Reviewed: Care Plan, H&P, Labs, Medications, Previous Orders, Radiology Changes from previous H/P or p: No Changes Eyes: No Pain, No Vision change, No Conjunctivae inflammation, No Eyelid inflammation, No Other, No Redness ENT: No Ear pain, No Ear discharge, No Nose pain, No Nose discharge, No Nose congestion, No Mouth pain, No Mouth swelling, No Throat pain, No Throat swelling, No Other Cardiovascular: No Chest Pain, No Palpitations, No Orthopnea, No Paroxysmal Noc. Dyspnea; Edema; No Lt Headedness, No Other Respiratory: No Cough, No Dry, No Shortness of breath, No SOB with excertion, No Wheezing, No Hemoptysis, No Pleuritic Pain, No Sputum, No Other Gastrointestinal: Nausea, Vomiting; No Abdominal Pain, No Diarrhea, No Constipation, No Melena, No Hematochezia, No Other Genitourinary: No Dysuria, No Frequency; Incontinence; No Hematuria, No Retention, No Other Musculoskeletal: No other, No neck pain, No shoulder pain, No arm pain, No back pain, No hand pain, No leg pain, No foot pain Skin: No Rash, No Lesions, No Jaundice, No Bruising, No Other Objective Vitals Vital Signs Date Time Temp Pulse Resp B/P (MAP) Pulse Ox O2 Delivery O2 Flow Rate FiO2 10/17/24 14:40 169/80 10/17/24 12:30 98.4 62 16 96 98.4 10/17/24 08:00 Room Air* 0 21 Intake/Output Intake and Output 10/17/24 07:00 Intake Total 1670 ml Balance 1670 ml Intake Oral 1670 ml # Voids 4 General Appearance: Alert, Oriented X3, Cooperative, No acute distress HEENT: Atraumatic, PERRLA, EOMI, Mucous membr. moist/pink Neck: Supple Lungs: Clear to auscultation, Normal air movement Cardiovascular: Regular rate, Normal S1, Normal S2, No murmurs, Gallops, Rubs Abdomen: Normal bowel sounds, Soft, No tenderness, No hepatospenomegaly Neuro: Cranial nerves 3-12 NL Psych/Mental Status: Mental status NL Medications Current Medications Medications Dose Ordered Sig/Yisel Route Start Time Stop Time Status Last Admin Dose Admin Nitroglycerin 0.4 mg Q5MINP PRN SL 10/13/24 23:00 Morphine Sulfate 2 mg Q30M PRN IV 10/13/24 23:00 Metolazone 5 mg DAILY PO 10/15/24 10:00 10/16/24 13:21 5 MG Pantoprazole Sodium 40 mg DAILY IV 10/15/24 10:00 10/17/24 10:08 40 MG Heparin Sodium (Porcine) 5,000 units Q12HR SC 10/14/24 10:00 10/16/24 21:09 5,000 UNITS Amlodipine Besylate 10 mg DAILY PO 10/14/24 10:00 10/15/24 10:27 10 MG Aspirin 81 mg DAILY PO 10/14/24 10:00 10/17/24 10:08 81 MG Atorvastatin Calcium 40 mg HS PO 10/14/24 22:00 10/16/24 21:14 40 MG Carvedilol 6.25 mg Q12HR PO 10/14/24 10:00 10/16/24 21:13 6.25 MG Levothyroxine Sodium 25 mcg QAM@0600 PO 10/14/24 06:00 10/17/24 05:41 25 MCG Oxybutynin Chloride 5 mg Q12HR PO 10/14/24 10:00 10/16/24 21:13 5 MG Sertraline HCl 25 mg DAILY PO 10/14/24 10:00 10/17/24 10:08 25 MG Sumatriptan Succinate 25 mg Q2HP PRN PO 10/13/24 23:30 10/15/24 22:10 25 MG Diagnostic Test (Pha) 1 strip ACHS 10/14/24 07:00 10/17/24 05:49 1 STRIP Insulin Human Regular HS [place] 10/14/24 22:00 10/16/24 21:06 8 UNITS Insulin Human Regular AC SC 10/14/24 07:00 10/17/24 05:47 2 UNITS Dextrose 50 ml UD PRN IV 10/13/24 23:30 Insulin Glargine 20 units HS [place] 10/14/24 00:45 10/16/24 21:07 20 UNITS Acetaminophen 650 mg Q6HP PRN PO 10/14/24 08:30 10/17/24 05:42 650 MG Hydralazine HCl 50 mg TID PO 10/14/24 22:00 10/17/24 14:40 50 MG Bumetanide 1 mg BIDD PO 10/17/24 06:00 10/17/24 05:41 1 MG Laboratory Results Laboratory Tests 10/13/24 16:15 10/17/24 06:15 Chemistry Test 10/17/24 06:15 Calcium Level 9.3 mg/dL (8.7-10.4) Magnesium Level 2.1 mg/dL (1.6-2.6) Phosphorus Level 5.0 mg/dL (2.4-5.1) Urinalysis Test 10/14/24 09:19 Urine Color Colorless (Yellow) Urine Clarity Clear (Clear) Urine pH 6.0 (5.0-9.0) Urine Specific [place] 1.010 (1.001-1.035) Urine Protein 2+ (Negative) H Urine Ketones Negative (Negative) Urine Blood Trace /uL (Negative) H Urine Nitrite Negative (Negative) Urine Bilirubin Negative (Negative) Urine Urobilinogen Normal mg/dL (Negative) Urine Leukocyte Esterase Negative /uL (Negative) Urine RBC 1 /hpf (0 - 4) Urine Microscopic WBC 1 /HPF (0-5) Urine Squamous Epithelial Cells Few /hpf (<5) Urine Bacteria Few /hpf (None Seen) H Urine Mucus Few (None Seen) Urine Glucose 1+ mg/dL (Normal) H Microbiology Microbiology Date/Time Source Procedure Growth Status 10/15/24 01:00 Nose MRSA Screen - Final Complete Assessment/Plan Assessment/Plan # ARMIDA ON CKD STAGE V # METABOLIC ENCEPHALOPATHY DUE TO UREMIA secondary to renal failure # DIZZINESS POSSIBLE DEHYDRATION # ANEMIA DUE TO CHRONIC KIDNEY DISEASE # ESSENTIAL HYPERTENSION #TYPE 2 DIABETES MELLITUS WITH HYPERGLYCEMIA WITH HBA1C- 6.0 # IRRITABLE BOWEL SYNDROME # HYPOTHYROIDISM # DEPRESSION # MIGRAINE HEADACHE # URINARY INCONTINENCE #HYPERLIPIDEMIA # Osteoporosis #GERD Continuing current management. Appreciate senior windows engineer input. Status post tunnel cath place for HD Waiting for outpatient chair time for HD set up Continuing home medication for osteoporosis: Fosamax, Lipitor, oxybutynin, sumatriptan as needed and sertraline Continuing Synthroid. Continuing with sliding scale insulin and Lantus. Continuing with hydralazine and Coreg, continuing with amlodipine Waiting for chairtime set up as outpatient. Discharge when chair time set up done. This medical document was created using an electronic medical record system with [employer] direct computerized dictation system. Although this document has been carefully reviewed, there may still be some phonetic and typographical errors. These areas are purely typographical due to imperfections of the software programs, and do not reflect any compromise in the patient's medical care. Plan discussed with: Patient My Orders Orders - ADALGISA ALBRECHT MD Procedure Category Date Status Time Parathyroid Hormone LAB 10/17/24 In Process Intact 06:15 Date of Service: Oct 17, 2024 Billing Provider: ADALGISA ALBRECHT MD Common Visit Codes: [id number] INP/OBS CARE(HIGH) ADALGISA ALBRECHT MD Oct 17, 2024 15:05
[2024-10-18 05:00] VITALS: BP 140/72; PULSE 81; RESP 14; TEMP 98.1; O2SAT 95
[2024-10-18 07:47] VITALS: RESP 14; O2SAT 94
--- NOTE | 2024-10-18 08:21 | DVHPN2 ---
Progress Note Date Seen: Oct 18, 2024 Medical Necessity Reason Pt with a Central, PICC or Fol: No Subjective Patient reports: No new complaints Review of Systems: Deferred Objective vital signs Vital Sign Date Time Temp Pulse Resp B/P (MAP) Pulse Ox O2 Delivery O2 Flow Rate FiO2 10/18/24 07:47 14 94 Room Air* 0 21 10/18/24 06:30 140/72 10/18/24 05:00 98.1 81 98.1 Total Intake and Output 10/17/24 10/17/24 10/18/24 15:00 23:00 07:00 Intake Total 200 ml Output Total 0 ml 1 ml Balance 0 ml 199 ml medications Current Medications Medications Dose Ordered Sig/Yisel Route Start Time Stop Time Status Last Admin Dose Admin Nitroglycerin 0.4 mg Q5MINP PRN SL 10/13/24 23:00 Morphine Sulfate 2 mg Q30M PRN IV 10/13/24 23:00 Metolazone 5 mg DAILY PO 10/15/24 10:00 10/16/24 13:21 5 MG Pantoprazole Sodium 40 mg DAILY IV 10/15/24 10:00 10/17/24 10:08 40 MG Heparin Sodium (Porcine) 5,000 units Q12HR SC 10/14/24 10:00 10/17/24 23:57 5,000 UNITS Amlodipine Besylate 10 mg DAILY PO 10/14/24 10:00 10/15/24 10:27 10 MG Aspirin 81 mg DAILY PO 10/14/24 10:00 10/17/24 10:08 81 MG Atorvastatin Calcium 40 mg HS PO 10/14/24 22:00 10/17/24 23:42 40 MG Carvedilol 6.25 mg Q12HR PO 10/14/24 10:00 10/17/24 23:41 6.25 MG Levothyroxine Sodium 25 mcg QAM@0600 PO 10/14/24 06:00 10/18/24 06:30 25 MCG Oxybutynin Chloride 5 mg Q12HR PO 10/14/24 10:00 10/17/24 23:41 5 MG Sertraline HCl 25 mg DAILY PO 10/14/24 10:00 10/17/24 10:08 25 MG Sumatriptan Succinate 25 mg Q2HP PRN PO 10/13/24 23:30 10/15/24 22:10 25 MG Diagnostic Test (Pha) 1 strip ACHS 10/14/24 07:00 10/18/24 06:30 1 STRIP Insulin Human Regular HS SC 10/14/24 22:00 10/17/24 22:00 6 UNITS Insulin Human Regular AC SC 10/14/24 07:00 10/18/24 06:35 2 UNITS Dextrose 50 ml UD PRN IV 10/13/24 23:30 Insulin Glargine 20 units HS SC 10/14/24 00:45 10/17/24 22:00 20 UNITS Acetaminophen 650 mg Q6HP PRN PO 10/14/24 08:30 10/17/24 16:57 650 MG Hydralazine HCl 50 mg TID PO 10/14/24 22:00 10/18/24 06:29 50 MG Bumetanide 1 mg BIDD PO 10/17/24 06:00 10/18/24 06:30 1 MG Examination: GENERAL:Normal, HEENT:Normal, NECK:Normal, LUNGS:Normal, CVS:Normal, ABDOMEN:Normal, MSK:Normal, SKIN:Abnormal (blister ), NEURO:Normal, :Normal laboratory and microbiology Laboratory Tests 10/17/24 06:15 10/13/24 16:15 Test 10/17/24 06:15 Range/Units Serum Glucose 148 H 74-106 mg/dL Microbiology Date/Time Source Procedure Growth Status 10/15/24 01:00 Nose MRSA Screen - Final Complete Problem List/Assessment/Plan Problem List/Assessment/Plan ESRD ---new start HD Biopsy-proven underlying diabetic nephropathy--follows my clinic Hypertension Morbid obesity Questionable lupus follows Dr. frost however not started on any medications per pt Recommendations HD saturday done,next HD saturday if still here s/p IR guided tunneled catheter placement director of student financial services for chair time with DCD pending Hepatitis panel wnl We will follow closely Blood pressure control blister on chest wall ?allergy--defer to hospitalist Plan discussed with: Patient Dietary Evaluation Review Comments: 1) Consider CCHO 60gm + renal standard diet 2) Refer CDE on DC 3) Monitor PO intake, lab values and I/O Expected Outcomes/Goals: To meet >75% estimated needs Fu 3-5 days SONYA SHANNON MD Oct 18, 2024 08:21
[2024-10-18 09:00] VITALS: BP 139/76; PULSE 59; RESP 20; TEMP 98.2; O2SAT 94
--- NOTE | 2024-10-18 14:53 | DVHPN2 ---
Subjective The patient is seen and examined at bedside. Still feels nausea but no vomiting. Reviewed: Care Plan, H&P, Labs, Medications, Previous Orders, Radiology Changes from previous H/P or p: No Changes Eyes: No Pain, No Vision change, No Conjunctivae inflammation, No Eyelid inflammation, No Other, No Redness ENT: No Ear pain, No Ear discharge, No Nose pain, No Nose discharge, No Nose congestion, No Mouth pain, No Mouth swelling, No Throat pain, No Throat swelling, No Other Cardiovascular: No Chest Pain, No Palpitations, No Orthopnea, No Paroxysmal Noc. Dyspnea; Edema; No Lt Headedness, No Other Respiratory: No Cough, No Dry, No Shortness of breath, No SOB with excertion, No Wheezing, No Hemoptysis, No Pleuritic Pain, No Sputum, No Other Gastrointestinal: Nausea, Vomiting; No Abdominal Pain, No Diarrhea, No Constipation, No Melena, No Hematochezia, No Other Genitourinary: No Dysuria, No Frequency; Incontinence; No Hematuria, No Retention, No Other Musculoskeletal: No other, No neck pain, No shoulder pain, No arm pain, No back pain, No hand pain, No leg pain, No foot pain Skin: No Rash, No Lesions, No Jaundice, No Bruising, No Other Objective Vitals Vital Signs Date Time Temp Pulse Resp B/P (MAP) Pulse Ox O2 Delivery O2 Flow Rate FiO2 10/18/24 13:10 72 135/67 10/18/24 09:00 98.2 20 94 98.2 10/18/24 07:47 Room Air* 0 21 Intake/Output Intake and Output 10/18/24 07:00 Intake Total 200 ml Output Total 1 ml Balance 199 ml Intake Oral 200 ml Output Urine Total 1 ml Stool Total 0 ml General Appearance: Alert, Oriented X3, Cooperative, No acute distress HEENT: Atraumatic, PERRLA, EOMI, Mucous membr. moist/pink Neck: Supple Lungs: Clear to auscultation, Normal air movement Cardiovascular: Regular rate, Normal S1, Normal S2, No murmurs, Gallops, Rubs Abdomen: Normal bowel sounds, Soft, No tenderness, No hepatospenomegaly Neuro: Cranial nerves 3-12 NL Psych/Mental Status: Mental status NL Medications Current Medications Medications Dose Ordered Sig/Yisel Route Start Time Stop Time Status Last Admin Dose Admin Nitroglycerin 0.4 mg Q5MINP PRN SL 10/13/24 23:00 Morphine Sulfate 2 mg Q30M PRN IV 10/13/24 23:00 Metolazone 5 mg DAILY PO 10/15/24 10:00 10/18/24 11:39 5 MG Pantoprazole Sodium 40 mg DAILY IV 10/15/24 10:00 10/18/24 09:35 40 MG Heparin Sodium (Porcine) 5,000 units Q12HR SC 10/14/24 10:00 10/17/24 23:57 5,000 UNITS Amlodipine Besylate 10 mg DAILY PO 10/14/24 10:00 10/15/24 10:27 10 MG Aspirin 81 mg DAILY PO 10/14/24 10:00 10/18/24 09:34 81 MG Atorvastatin Calcium 40 mg HS PO 10/14/24 22:00 10/17/24 23:42 40 MG Carvedilol 6.25 mg Q12HR PO 10/14/24 10:00 10/18/24 13:10 6.25 MG Levothyroxine Sodium 25 mcg QAM@0600 PO 10/14/24 06:00 10/18/24 06:30 25 MCG Oxybutynin Chloride 5 mg Q12HR PO 10/14/24 10:00 10/18/24 09:34 5 MG Sertraline HCl 25 mg DAILY PO 10/14/24 10:00 10/18/24 09:33 25 MG Sumatriptan Succinate 25 mg Q2HP PRN PO 10/13/24 23:30 10/15/24 22:10 25 MG Diagnostic Test (Pha) 1 strip ACHS 10/14/24 07:00 10/18/24 11:39 1 STRIP Insulin Human Regular HS SC 10/14/24 22:00 10/17/24 22:00 6 UNITS Insulin Human Regular AC SC 10/14/24 07:00 10/18/24 12:22 3 UNITS Dextrose 50 ml UD PRN IV 10/13/24 23:30 Insulin Glargine 20 units HS SC 10/14/24 00:45 10/17/24 22:00 20 UNITS Acetaminophen 650 mg Q6HP PRN PO 10/14/24 08:30 10/18/24 09:34 650 MG Hydralazine HCl 50 mg TID PO 10/14/24 22:00 10/18/24 06:29 50 MG Bumetanide 1 mg BIDD PO 10/17/24 06:00 10/18/24 06:30 1 MG Laboratory Results Laboratory Tests 10/13/24 16:15 10/17/24 06:15 Urinalysis Test 10/14/24 09:19 Urine Color Colorless (Yellow) Urine Clarity Clear (Clear) Urine pH 6.0 (5.0-9.0) Urine Specific [place] 1.010 (1.001-1.035) Urine Protein 2+ (Negative) H Urine Ketones Negative (Negative) Urine Blood Trace /uL (Negative) H Urine Nitrite Negative (Negative) Urine Bilirubin Negative (Negative) Urine Urobilinogen Normal mg/dL (Negative) Urine Leukocyte Esterase Negative /uL (Negative) Urine RBC 1 /hpf (0 - 4) Urine Microscopic WBC 1 /HPF (0-5) Urine Squamous Epithelial Cells Few /hpf (<5) Urine Bacteria Few /hpf (None Seen) H Urine Mucus Few (None Seen) Urine Glucose 1+ mg/dL (Normal) H Microbiology Microbiology Date/Time Source Procedure Growth Status 10/15/24 01:00 Nose MRSA Screen - Final Complete Labs and/or images reviewed: Labs reviewed by me Assessment/Plan Assessment/Plan # ARMIDA ON CKD STAGE V # METABOLIC ENCEPHALOPATHY DUE TO UREMIA secondary to renal failure # DIZZINESS POSSIBLE DEHYDRATION # ANEMIA DUE TO CHRONIC KIDNEY DISEASE # ESSENTIAL HYPERTENSION #TYPE 2 DIABETES MELLITUS WITH HYPERGLYCEMIA WITH HBA1C- 6.0 # IRRITABLE BOWEL SYNDROME # HYPOTHYROIDISM # DEPRESSION # MIGRAINE HEADACHE # URINARY INCONTINENCE #HYPERLIPIDEMIA # Osteoporosis #GERD Continuing current management. Appreciate coach cleaner input. Status post tunnel cath place for HD Waiting for outpatient chair time for HD set up Continuing home medication for osteoporosis: Fosamax, Lipitor, oxybutynin, sumatriptan as needed and sertraline Continuing Synthroid. Continuing with sliding scale insulin and Lantus. Continuing with hydralazine and Coreg, continuing with amlodipine Waiting for chairtime set up as outpatient. Discharge when chair time set up done. This medical document was created using an electronic medical record system with M[email or web address] direct computerized dictation system. Although this document has been carefully reviewed, there may still be some phonetic and typographical errors. These areas are purely typographical due to imperfections of the software programs, and do not reflect any compromise in the patient's medical care. Plan discussed with: Patient My Orders Orders - ADALGISA ALBRECHT MD Procedure Category Date Status Time * Wound Consult CONS 10/18/24 Transmitted Date of Service: Oct 18, 2024 Billing Provider: ADALGISA ALBRECHT MD Common Visit Codes: [id number] INP/OBS CARE(HIGH) ADALGISA ALBRECHT MD Oct 18, 2024 14:52
[2024-10-18 16:46] VITALS: BP 143/73; PULSE 65; RESP 20; TEMP 98.9; O2SAT 95
--- NOTE | 2024-10-18 18:18 | DVH ---
CLINICAL INDICATION: PAIN TECHNIQUE: 5 radiographic views of the lumbar spine were obtained. Comparison: None FINDINGS/IMPRESSION: Dextroscoliosis of the lumbar spine is seen there are no prior studies for comparison so this may rep resent positional abnormality. Bony spondylosis and degenerative disc changes are noted throughout the lumbar spine . Grade 1 anterior spondylolisthesis is noted at L4-5. There are degenerative disc changes at 4 5. Mild compression of the T11-T12 and L1 are noted.
[2024-10-18 20:00] VITALS: PULSE 69; RESP 17; O2SAT 95
[2024-10-18 21:00] VITALS: BP 150/77; PULSE 60; RESP 16; TEMP 98.2; O2SAT 98
[2024-10-19] VITALS (7 sets, daily range): BP systolic 128–151; BP diastolic 69–84; PULSE 56–67; RESP 14–20; TEMP 98–98.4; O2SAT 94–98
[2024-10-19 05:38] LABS: Anion Gap 9 (5-15); Carbon Dioxide 29 mmol/L (20-31); Chloride 102 mmol/L (98-107); Sodium 140 mmol/L (136-145)
[2024-10-19 05:39] LABS: Calcium 8.9 mg/dL (8.7-10.4)
[2024-10-19 05:41] LABS: Potassium 3.1 mmol/L (3.5-5.1)
[2024-10-19 05:44] LABS: BUN/Creatinine Ratio 11.9 (10.0-20.0)
[2024-10-19 06:00] LABS: Blood Urea Nitrogen 49 mg/dL (9-23); Glucose 148 mg/dL (74-106)
--- NOTE | 2024-10-19 11:03 | DVHPN2 ---
Progress Note Date Seen: Oct 19, 2024 Medical Necessity Reason Pt with a Central, PICC or Fol: No Objective vital signs Vital Sign Date Time Temp Pulse Resp B/P (MAP) Pulse Ox O2 Delivery O2 Flow Rate FiO2 10/19/24 10:27 128/72 10/19/24 10:24 63 10/19/24 09:00 98.2 17 98 98.2 10/18/24 20:00 Room Air* 0 21 Total Intake and Output 10/18/24 10/18/24 10/19/24 15:00 23:00 07:00 Intake Total 340 ml 1000 ml 800 ml Balance 340 ml 1000 ml 800 ml medications Current Medications Medications Dose Ordered Sig/Yisel Route Start Time Stop Time Status Last Admin Dose Admin Nitroglycerin 0.4 mg Q5MINP PRN SL 10/13/24 23:00 Morphine Sulfate 2 mg Q30M PRN IV 10/13/24 23:00 Metolazone 5 mg DAILY PO 10/15/24 10:00 10/19/24 10:22 5 MG Pantoprazole Sodium 40 mg DAILY IV 10/15/24 10:00 10/19/24 10:21 40 MG Heparin Sodium (Porcine) 5,000 units Q12HR SC 10/14/24 10:00 10/19/24 10:37 5,000 UNITS Amlodipine Besylate 10 mg DAILY PO 10/14/24 10:00 10/19/24 10:27 10 MG Aspirin 81 mg DAILY PO 10/14/24 10:00 10/19/24 10:26 81 MG Atorvastatin Calcium 40 mg HS PO 10/14/24 22:00 10/18/24 21:41 40 MG Carvedilol 6.25 mg Q12HR PO 10/14/24 10:00 10/19/24 10:24 6.25 MG Levothyroxine Sodium 25 mcg QAM@0600 PO 10/14/24 06:00 10/19/24 05:58 25 MCG Oxybutynin Chloride 5 mg Q12HR PO 10/14/24 10:00 10/19/24 10:26 5 MG Sertraline HCl 25 mg DAILY PO 10/14/24 10:00 10/19/24 10:26 25 MG Sumatriptan Succinate 25 mg Q2HP PRN PO 10/13/24 23:30 10/15/24 22:10 25 MG Diagnostic Test (Pha) 1 strip ACHS 10/14/24 07:00 10/19/24 05:58 1 STRIP Insulin Human Regular HS SC 10/14/24 22:00 10/18/24 21:43 4 UNITS Insulin Human Regular AC SC 10/14/24 07:00 10/19/24 05:58 2 UNITS Dextrose 50 ml UD PRN IV 10/13/24 23:30 Insulin Glargine 20 units HS SC 10/14/24 00:45 10/18/24 21:44 20 UNITS Acetaminophen 650 mg Q6HP PRN PO 10/14/24 08:30 10/19/24 00:16 650 MG Hydralazine HCl 50 mg TID PO 10/14/24 22:00 10/19/24 05:59 50 MG Bumetanide 1 mg BIDD PO 10/17/24 06:00 10/19/24 05:59 1 MG Examination: GENERAL:Normal, CVS:Normal, SKIN:Normal laboratory and microbiology Laboratory Tests 10/19/24 04:25 10/13/24 16:15 Test 10/19/24 04:25 Range/Units Serum Glucose 148 H 74-106 mg/dL Microbiology Date/Time Source Procedure Growth Status 10/15/24 01:00 Nose MRSA Screen - Final Complete Problem List/Assessment/Plan Problem List/Assessment/Plan ESRD ---new start HD Biopsy-proven underlying diabetic nephropathy--follows my clinic Hypertension Morbid obesity Questionable lupus follows Dr. frost however not started on any medications per pt next HD saturday rehabilitation services manager for chair time with DCD pending Hepatitis panel wnl Blood pressure control Plan discussed with: Patient Dietary Evaluation Review Comments: 1) Consider CCHO 60gm + renal standard diet 2) Refer CDE on DC 3) Monitor PO intake, lab values and I/O Expected Outcomes/Goals: To meet >75% estimated needs Fu 3-5 days MONICA GARCIA MD Oct 19, 2024 11:03
--- NOTE | 2024-10-19 12:05 | DVHPN2 ---
Subjective The patient is seen and examined at bedside. Still feels nausea but no vomiting. Reviewed: Care Plan, H&P, Labs, Medications, Previous Orders, Radiology Changes from previous H/P or p: No Changes Eyes: No Pain, No Vision change, No Conjunctivae inflammation, No Eyelid inflammation, No Other, No Redness ENT: No Ear pain, No Ear discharge, No Nose pain, No Nose discharge, No Nose congestion, No Mouth pain, No Mouth swelling, No Throat pain, No Throat swelling, No Other Cardiovascular: No Chest Pain, No Palpitations, No Orthopnea, No Paroxysmal Noc. Dyspnea; Edema; No Lt Headedness, No Other Respiratory: No Cough, No Dry, No Shortness of breath, No SOB with excertion, No Wheezing, No Hemoptysis, No Pleuritic Pain, No Sputum, No Other Gastrointestinal: Nausea, Vomiting; No Abdominal Pain, No Diarrhea, No Constipation, No Melena, No Hematochezia, No Other Genitourinary: No Dysuria, No Frequency; Incontinence; No Hematuria, No Retention, No Other Musculoskeletal: No other, No neck pain, No shoulder pain, No arm pain, No back pain, No hand pain, No leg pain, No foot pain Skin: No Rash, No Lesions, No Jaundice, No Bruising, No Other Objective Vitals Vital Signs Date Time Temp Pulse Resp B/P (MAP) Pulse Ox O2 Delivery O2 Flow Rate FiO2 10/19/24 10:27 128/72 10/19/24 10:24 63 10/19/24 09:00 98.2 17 98 98.2 10/18/24 20:00 Room Air* 0 21 Intake/Output Intake and Output 10/19/24 07:00 Intake Total 2140 ml Balance 2140 ml Intake Oral 2140 ml # Voids 6 # Bowel Movements 2 General Appearance: Alert, Oriented X3, Cooperative, No acute distress HEENT: Atraumatic, PERRLA, EOMI, Mucous membr. moist/pink Neck: Supple Lungs: Clear to auscultation, Normal air movement Cardiovascular: Regular rate, Normal S1, Normal S2, No murmurs, Gallops, Rubs Abdomen: Normal bowel sounds, Soft, No tenderness, No hepatospenomegaly Neuro: Cranial nerves 3-12 NL Psych/Mental Status: Mental status NL Medications Current Medications Medications Dose Ordered Sig/Yisel Route Start Time Stop Time Status Last Admin Dose Admin Nitroglycerin 0.4 mg Q5MINP PRN SL 10/13/24 23:00 Morphine Sulfate 2 mg Q30M PRN IV 10/13/24 23:00 Metolazone 5 mg DAILY PO 10/15/24 10:00 10/19/24 10:22 5 MG Pantoprazole Sodium 40 mg DAILY IV 10/15/24 10:00 10/19/24 10:21 40 MG Heparin Sodium (Porcine) 5,000 units Q12HR SC 10/14/24 10:00 10/19/24 10:37 5,000 UNITS Amlodipine Besylate 10 mg DAILY PO 10/14/24 10:00 10/19/24 10:27 10 MG Aspirin 81 mg DAILY PO 10/14/24 10:00 10/19/24 10:26 81 MG Atorvastatin Calcium 40 mg HS PO 10/14/24 22:00 10/18/24 21:41 40 MG Carvedilol 6.25 mg Q12HR PO 10/14/24 10:00 10/19/24 10:24 6.25 MG Levothyroxine Sodium 25 mcg QAM@0600 PO 10/14/24 06:00 10/19/24 05:58 25 MCG Oxybutynin Chloride 5 mg Q12HR PO 10/14/24 10:00 10/19/24 10:26 5 MG Sertraline HCl 25 mg DAILY PO 10/14/24 10:00 10/19/24 10:26 25 MG Sumatriptan Succinate 25 mg Q2HP PRN PO 10/13/24 23:30 10/15/24 22:10 25 MG Diagnostic Test (Pha) 1 strip ACHS 10/14/24 07:00 10/19/24 11:34 1 STRIP Insulin Human Regular HS SC 10/14/24 22:00 10/18/24 21:43 4 UNITS Insulin Human Regular AC SC 10/14/24 07:00 10/19/24 11:35 9 UNITS Dextrose 50 ml UD PRN IV 10/13/24 23:30 Insulin Glargine 20 units HS SC 10/14/24 00:45 10/18/24 21:44 20 UNITS Acetaminophen 650 mg Q6HP PRN PO 10/14/24 08:30 10/19/24 00:16 650 MG Hydralazine HCl 50 mg TID PO 10/14/24 22:00 10/19/24 05:59 50 MG Bumetanide 1 mg BIDD PO 10/17/24 06:00 10/19/24 05:59 1 MG Laboratory Results Laboratory Tests 10/13/24 16:15 10/19/24 04:25 Chemistry Test 10/19/24 04:25 Calcium Level 8.9 mg/dL (8.7-10.4) Urinalysis Test 10/14/24 09:19 Urine Color Colorless (Yellow) Urine Clarity Clear (Clear) Urine pH 6.0 (5.0-9.0) Urine Specific [place] 1.010 (1.001-1.035) Urine Protein 2+ (Negative) H Urine Ketones Negative (Negative) Urine Blood Trace /uL (Negative) H Urine Nitrite Negative (Negative) Urine Bilirubin Negative (Negative) Urine Urobilinogen Normal mg/dL (Negative) Urine Leukocyte Esterase Negative /uL (Negative) Urine RBC 1 /hpf (0 - 4) Urine Microscopic WBC 1 /HPF (0-5) Urine Squamous Epithelial Cells Few /hpf (<5) Urine Bacteria Few /hpf (None Seen) H Urine Mucus Few (None Seen) Urine Glucose 1+ mg/dL (Normal) H Microbiology Microbiology Date/Time Source Procedure Growth Status 10/15/24 01:00 Nose MRSA Screen - Final Complete Labs and/or images reviewed: Labs reviewed by me Assessment/Plan Assessment/Plan # ARMIDA ON CKD STAGE V # METABOLIC ENCEPHALOPATHY DUE TO UREMIA secondary to renal failure # DIZZINESS POSSIBLE DEHYDRATION # ANEMIA DUE TO CHRONIC KIDNEY DISEASE # ESSENTIAL HYPERTENSION #TYPE 2 DIABETES MELLITUS WITH HYPERGLYCEMIA WITH HBA1C- 6.0 # IRRITABLE BOWEL SYNDROME # HYPOTHYROIDISM # DEPRESSION # MIGRAINE HEADACHE # URINARY INCONTINENCE #HYPERLIPIDEMIA # Osteoporosis #GERD Continuing current management. Appreciate accounting director input. Status post tunnel cath place for HD Waiting for outpatient chair time for HD set up Continuing home medication for osteoporosis: Fosamax, Lipitor, oxybutynin, sumatriptan as needed and sertraline Continuing Synthroid. Continuing with sliding scale insulin and Lantus. Continuing with hydralazine and Coreg, continuing with amlodipine Waiting for chairtime set up as outpatient. Discharge when chair time set up done. This medical document was created using an electronic medical record system with [employer] direct computerized dictation system. Although this document has been carefully reviewed, there may still be some phonetic and typographical errors. These areas are purely typographical due to imperfections of the software programs, and do not reflect any compromise in the patient's medical care. Plan discussed with: Patient My Orders Orders - ADALGISA ALBRECHT MD Procedure Category Date Status Time Lumbar Spine 4+ View XY 10/18/24 Resulted 17:19 Date of Service: Oct 19, 2024 Billing Provider: ADALGISA ALBRECHT MD Common Visit Codes: [id number] INP/OBS CARE(HIGH) AADLGISA ALBRECHT MD Oct 19, 2024 12:05
[2024-10-20] VITALS (8 sets, daily range): BP systolic 113–143; BP diastolic 47–73; PULSE 60–64; RESP 15–18; TEMP 98.2–99.1; O2SAT 95–99
--- NOTE | 2024-10-20 07:44 | DVHPN2 ---
Progress Note Date Seen: Oct 20, 2024 Medical Necessity Reason Pt with a Central, PICC or Fol: No Subjective Patient reports: No new complaints Objective vital signs Vital Sign Date Time Temp Pulse Resp B/P (MAP) Pulse Ox O2 Delivery O2 Flow Rate FiO2 10/20/24 06:28 143/73 10/20/24 05:00 98.9 60 18 97 98.9 10/19/24 20:00 Room Air* 0 21 Total Intake and Output 10/19/24 10/19/24 10/20/24 15:00 23:00 07:00 Intake Total 600 ml 250 ml Balance 600 ml 250 ml medications Current Medications Medications Dose Ordered Sig/Yisel Route Start Time Stop Time Status Last Admin Dose Admin Nitroglycerin 0.4 mg Q5MINP PRN SL 10/13/24 23:00 Morphine Sulfate 2 mg Q30M PRN IV 10/13/24 23:00 Metolazone 5 mg DAILY PO 10/15/24 10:00 10/19/24 10:22 5 MG Pantoprazole Sodium 40 mg DAILY IV 10/15/24 10:00 10/19/24 10:21 40 MG Heparin Sodium (Porcine) 5,000 units Q12HR SC 10/14/24 10:00 10/19/24 22:15 5,000 UNITS Amlodipine Besylate 10 mg DAILY PO 10/14/24 10:00 10/19/24 10:27 10 MG Aspirin 81 mg DAILY PO 10/14/24 10:00 10/19/24 10:26 81 MG Atorvastatin Calcium 40 mg HS PO 10/14/24 22:00 10/19/24 22:13 40 MG Carvedilol 6.25 mg Q12HR PO 10/14/24 10:00 10/19/24 22:14 6.25 MG Levothyroxine Sodium 25 mcg QAM@0600 PO 10/14/24 06:00 10/20/24 06:27 25 MCG Oxybutynin Chloride 5 mg Q12HR PO 10/14/24 10:00 10/19/24 22:14 5 MG Sertraline HCl 25 mg DAILY PO 10/14/24 10:00 10/19/24 10:26 25 MG Sumatriptan Succinate 25 mg Q2HP PRN PO 10/13/24 23:30 10/19/24 20:49 25 MG Diagnostic Test (Pha) 1 strip ACHS 10/14/24 07:00 10/20/24 06:28 1 STRIP Insulin Human Regular HS SC 10/14/24 22:00 10/19/24 22:12 6 UNITS Insulin Human Regular AC SC 10/14/24 07:00 10/20/24 06:32 2 UNITS Dextrose 50 ml UD PRN IV 10/13/24 23:30 Insulin Glargine 20 units HS SC 10/14/24 00:45 10/19/24 22:16 20 UNITS Acetaminophen 650 mg Q6HP PRN PO 10/14/24 08:30 10/19/24 00:16 650 MG Hydralazine HCl 50 mg TID PO 10/14/24 22:00 10/20/24 06:28 50 MG Bumetanide 1 mg BIDD PO 10/17/24 06:00 10/20/24 06:28 1 MG Examination: GENERAL:Normal, CVS:Normal, SKIN:Normal laboratory and microbiology Laboratory Tests 10/19/24 04:25 10/13/24 16:15 Test 10/19/24 04:25 Range/Units Serum Glucose 148 H 74-106 mg/dL Microbiology Date/Time Source Procedure Growth Status 10/15/24 01:00 Nose MRSA Screen - Final Complete Problem List/Assessment/Plan Problem List/Assessment/Plan ESRD ---new start HD Biopsy-proven underlying diabetic nephropathy--follows my clinic Hypertension Morbid obesity + double stranded DNA reports sees Rheum BMP and cbc ordered today DAMARIS today HD today java web services developer for chair time with DCD pending Hepatitis panel wnl Blood pressure control Plan discussed with: Patient My Orders My Orders Orders - MONICA GARCIA MD Procedure Category Date Status Time Basic Metabolic Panel LAB 10/20/24 Logged 07:36 Phosphorus LAB 10/20/24 Logged 07:36 Basic Metabolic Panel LAB 10/21/24 Verified 04:00 Dietary Evaluation Review Comments: 1) Consider CCHO 60gm + renal standard diet 2) Refer CDE on DC 3) Monitor PO intake, lab values and I/O Expected Outcomes/Goals: To meet >75% estimated needs Fu 3-5 days MONICA GARCIA MD Oct 20, 2024 07:44
[2024-10-20 09:02] LABS: Chloride 101 mmol/L (98-107); Sodium 140 mmol/L (136-145)
[2024-10-20 09:03] LABS: Anion Gap 10 (5-15); Calcium 9.3 mg/dL (8.7-10.4); Carbon Dioxide 29 mmol/L (20-31)
[2024-10-20 09:08] LABS: BUN/Creatinine Ratio 13.1 (10.0-20.0)
[2024-10-20 09:09] LABS: Blood Urea Nitrogen 57 mg/dL (9-23); Glucose 188 mg/dL (74-106); Potassium 3.2 mmol/L (3.5-5.1)
[2024-10-20] MEDS: SODIUM CHL 0.9% 1000 ML BAG XX ONE (10:45)
--- NOTE | 2024-10-20 12:28 | DVHPN2 ---
Subjective The patient is seen and examined at bedside. Still feels nausea but no vomiting. HD today. Patient is tired. Reviewed: Care Plan, H&P, Labs, Medications, Previous Orders, Radiology Changes from previous H/P or p: No Changes Eyes: No Pain, No Vision change, No Conjunctivae inflammation, No Eyelid inflammation, No Other, No Redness ENT: No Ear pain, No Ear discharge, No Nose pain, No Nose discharge, No Nose congestion, No Mouth pain, No Mouth swelling, No Throat pain, No Throat swelling, No Other Cardiovascular: No Chest Pain, No Palpitations, No Orthopnea, No Paroxysmal Noc. Dyspnea; Edema; No Lt Headedness, No Other Respiratory: No Cough, No Dry, No Shortness of breath, No SOB with excertion, No Wheezing, No Hemoptysis, No Pleuritic Pain, No Sputum, No Other Gastrointestinal: Nausea, Vomiting; No Abdominal Pain, No Diarrhea, No Constipation, No Melena, No Hematochezia, No Other Genitourinary: No Dysuria, No Frequency; Incontinence; No Hematuria, No Retention, No Other Musculoskeletal: No other, No neck pain, No shoulder pain, No arm pain, No back pain, No hand pain, No leg pain, No foot pain Skin: No Rash, No Lesions, No Jaundice, No Bruising, No Other Objective Vitals Vital Signs Date Time Temp Pulse Resp B/P (MAP) Pulse Ox O2 Delivery O2 Flow Rate FiO2 10/20/24 11:21 61 142/47 10/20/24 09:00 98.4 16 97 98.4 10/20/24 08:00 Room Air* 0 21 Intake/Output Intake and Output 10/20/24 07:00 Intake Total 850 ml Balance 850 ml Intake Oral 850 ml # Voids 6 # Bowel Movements 1 General Appearance: Alert, Oriented X3, Cooperative, No acute distress HEENT: Atraumatic, PERRLA, EOMI, Mucous membr. moist/pink Neck: Supple Lungs: Clear to auscultation, Normal air movement Cardiovascular: Regular rate, Normal S1, Normal S2, No murmurs, Gallops, Rubs Abdomen: Normal bowel sounds, Soft, No tenderness, No hepatospenomegaly Neuro: Cranial nerves 3-12 NL Psych/Mental Status: Mental status NL Medications Current Medications Medications Dose Ordered Sig/Yisel Route Start Time Stop Time Status Last Admin Dose Admin Nitroglycerin 0.4 mg Q5MINP PRN SL 10/13/24 23:00 Morphine Sulfate 2 mg Q30M PRN IV 10/13/24 23:00 Metolazone 5 mg DAILY PO 10/15/24 10:00 10/20/24 09:16 5 MG Pantoprazole Sodium 40 mg DAILY IV 10/15/24 10:00 10/20/24 09:14 40 MG Heparin Sodium (Porcine) 5,000 units Q12HR SC 10/14/24 10:00 10/20/24 09:18 5,000 UNITS Amlodipine Besylate 10 mg DAILY PO 10/14/24 10:00 10/20/24 09:16 10 MG Aspirin 81 mg DAILY PO 10/14/24 10:00 10/20/24 09:14 81 MG Atorvastatin Calcium 40 mg HS PO 10/14/24 22:00 10/19/24 22:13 40 MG Carvedilol 6.25 mg Q12HR PO 10/14/24 10:00 10/20/24 09:15 6.25 MG Levothyroxine Sodium 25 mcg QAM@0600 PO 10/14/24 06:00 10/20/24 06:27 25 MCG Oxybutynin Chloride 5 mg Q12HR PO 10/14/24 10:00 10/20/24 09:15 5 MG Sertraline HCl 25 mg DAILY PO 10/14/24 10:00 10/20/24 09:17 25 MG Sumatriptan Succinate 25 mg Q2HP PRN PO 10/13/24 23:30 10/19/24 20:49 25 MG Diagnostic Test (Pha) 1 strip ACHS 10/14/24 07:00 10/20/24 11:25 1 STRIP Insulin Human Regular HS SC 10/14/24 22:00 10/19/24 22:12 6 UNITS Insulin Human Regular AC SC 10/14/24 07:00 10/20/24 11:38 6 UNITS Dextrose 50 ml UD PRN IV 10/13/24 23:30 Insulin Glargine 20 units HS SC 10/14/24 00:45 10/19/24 22:16 20 UNITS Acetaminophen 650 mg Q6HP PRN PO 10/14/24 08:30 10/19/24 00:16 650 MG Hydralazine HCl 50 mg TID PO 10/14/24 22:00 10/20/24 06:28 50 MG Bumetanide 1 mg BIDD PO 10/17/24 06:00 10/20/24 06:28 1 MG Laboratory Results Laboratory Tests 10/13/24 16:15 10/20/24 08:41 Chemistry Test 10/20/24 08:41 Calcium Level 9.3 mg/dL (8.7-10.4) Phosphorus Level 5.1 mg/dL (2.4-5.1) Urinalysis Test 10/14/24 09:19 Urine Color Colorless (Yellow) Urine Clarity Clear (Clear) Urine pH 6.0 (5.0-9.0) Urine Specific [place] 1.010 (1.001-1.035) Urine Protein 2+ (Negative) H Urine Ketones Negative (Negative) Urine Blood Trace /uL (Negative) H Urine Nitrite Negative (Negative) Urine Bilirubin Negative (Negative) Urine Urobilinogen Normal mg/dL (Negative) Urine Leukocyte Esterase Negative /uL (Negative) Urine RBC 1 /hpf (0 - 4) Urine Microscopic WBC 1 /HPF (0-5) Urine Squamous Epithelial Cells Few /hpf (<5) Urine Bacteria Few /hpf (None Seen) H Urine Mucus Few (None Seen) Urine Glucose 1+ mg/dL (Normal) H Microbiology Microbiology Date/Time Source Procedure Growth Status 10/15/24 01:00 Nose MRSA Screen - Final Complete Labs and/or images reviewed: Labs reviewed by me Assessment/Plan Assessment/Plan # ARMIDA ON CKD STAGE V # METABOLIC ENCEPHALOPATHY DUE TO UREMIA secondary to renal failure # DIZZINESS POSSIBLE DEHYDRATION # ANEMIA DUE TO CHRONIC KIDNEY DISEASE # ESSENTIAL HYPERTENSION #TYPE 2 DIABETES MELLITUS WITH HYPERGLYCEMIA WITH HBA1C- 6.0 # IRRITABLE BOWEL SYNDROME # HYPOTHYROIDISM # DEPRESSION # MIGRAINE HEADACHE # URINARY INCONTINENCE #HYPERLIPIDEMIA # Osteoporosis #GERD Continuing current management. Appreciate hourly sales staff input. Status post tunnel cath place for HD Waiting for outpatient chair time for HD set up Continuing home medication for osteoporosis: Fosamax, Lipitor, oxybutynin, sumatriptan as needed and sertraline Continuing Synthroid. Continuing with sliding scale insulin and Lantus. Continuing with hydralazine and Coreg, continuing with amlodipine Still waiting for chairtime set up as outpatient. Discharge when chair time set up done. This medical document was created using an electronic medical record system with [employer] direct computerized dictation system. Although this document has been carefully reviewed, there may still be some phonetic and typographical errors. These areas are purely typographical due to imperfections of the software programs, and do not reflect any compromise in the patient's medical care. Plan discussed with: Patient My Orders Orders - ADALGISA ALBRECHT MD Procedure Category Date Status Time Apply: [facility] 10/19/24 In Process 13:34 Date of Service: Oct 20, 2024 Billing Provider: ADALGISA ALBRECHT MD Common Visit Codes: [id number] INP/OBS CARE(HIGH) ADALGISA ALBRECHT MD Oct 20, 2024 12:27
[2024-10-21] VITALS (8 sets, daily range): BP systolic 102–146; BP diastolic 47–77; PULSE 57–110; RESP 18–19; TEMP 36.6; O2SAT 97–99
[2024-10-21 05:32] LABS: Calcium 9.3 mg/dL (8.7-10.4); Chloride 101 mmol/L (98-107); Potassium 3.6 mmol/L (3.5-5.1); Sodium 140 mmol/L (136-145)
[2024-10-21 05:33] LABS: Anion Gap 9 (5-15); Carbon Dioxide 30 mmol/L (20-31)
[2024-10-21 05:39] LABS: BUN/Creatinine Ratio 10.1 (10.0-20.0)
[2024-10-21 05:45] LABS: Blood Urea Nitrogen 35 mg/dL (9-23); Glucose 169 mg/dL (74-106)
--- NOTE | 2024-10-21 10:52 | DVHPN2 ---
Subjective Did not share any complaints Reviewed: Care Plan, H&P, Labs, Medications, Previous Orders, Radiology, Other (Consultations) Changes from previous H/P or p: No Changes Objective Vitals Vital Signs Date Time Temp Pulse Resp B/P (MAP) Pulse Ox O2 Delivery O2 Flow Rate FiO2 10/21/24 10:21 65 120/62 10/21/24 08:49 97.6 18 97 97.6 10/21/24 08:00 Room Air* 0 21 Intake/Output Intake and Output 10/21/24 07:00 Intake Total 600 ml Balance 600 ml Intake Oral 600 ml # Voids 5 General Appearance: Alert, Oriented X3, Other (Morbidly obese) HEENT: Atraumatic Lungs: Clear to auscultation, Normal air movement Chest/Breasts: Other (Right chest hemodialysis catheter with mild tenderness but no discharge/bleeding) Cardiovascular: Regular rate, Normal S1, Normal S2, No murmurs, Gallops, Rubs Abdomen: Normal bowel sounds, Soft, No tenderness, No hepatospenomegaly Neuro: Normal speech, Cranial nerves 3-12 NL Psych/Mental Status: Mental status NL, Mood NL Medications Current Medications Medications Dose Ordered Sig/Yisel Route Start Time Stop Time Status Last Admin Dose Admin Nitroglycerin 0.4 mg Q5MINP PRN SL 10/13/24 23:00 Morphine Sulfate 2 mg Q30M PRN IV 10/13/24 23:00 Metolazone 5 mg DAILY PO 10/15/24 10:00 10/21/24 10:20 5 MG Pantoprazole Sodium 40 mg DAILY IV 10/15/24 10:00 10/21/24 10:19 40 MG Heparin Sodium (Porcine) 5,000 units Q12HR SC 10/14/24 10:00 10/21/24 10:18 5,000 UNITS Amlodipine Besylate 10 mg DAILY PO 10/14/24 10:00 10/21/24 10:20 10 MG Aspirin 81 mg DAILY PO 10/14/24 10:00 10/21/24 10:19 81 MG Atorvastatin Calcium 40 mg HS PO 10/14/24 22:00 10/20/24 21:39 40 MG Carvedilol 6.25 mg Q12HR PO 10/14/24 10:00 10/21/24 10:21 6.25 MG Levothyroxine Sodium 25 mcg QAM@0600 PO 10/14/24 06:00 10/21/24 06:07 25 MCG Oxybutynin Chloride 5 mg Q12HR PO 10/14/24 10:00 10/21/24 10:19 5 MG Sertraline HCl 25 mg DAILY PO 10/14/24 10:00 10/21/24 10:19 25 MG Sumatriptan Succinate 25 mg Q2HP PRN PO 10/13/24 23:30 10/20/24 21:39 25 MG Diagnostic Test (Pha) 1 strip ACHS 10/14/24 07:00 10/21/24 06:13 1 STRIP Insulin Human Regular HS SC 10/14/24 22:00 10/20/24 21:36 4 UNITS Insulin Human Regular AC SC 10/14/24 07:00 10/21/24 06:16 3 UNITS Dextrose 50 ml UD PRN IV 10/13/24 23:30 Insulin Glargine 20 units HS MO 10/14/24 00:45 10/20/24 21:37 20 UNITS Acetaminophen 650 mg Q6HP PRN PO 10/14/24 08:30 10/19/24 00:16 650 MG Hydralazine HCl 50 mg TID PO 10/14/24 22:00 10/21/24 06:07 50 MG Bumetanide 1 mg BIDD PO 10/17/24 06:00 10/21/24 06:07 1 MG Laboratory Results Laboratory Tests 10/13/24 16:15 10/21/24 04:36 Chemistry Test 10/21/24 04:36 Calcium Level 9.3 mg/dL (8.7-10.4) Urinalysis Test 10/14/24 09:19 Urine Color Colorless (Yellow) Urine Clarity Clear (Clear) Urine pH 6.0 (5.0-9.0) Urine Specific [place] 1.010 (1.001-1.035) Urine Protein 2+ (Negative) H Urine Ketones Negative (Negative) Urine Blood Trace /uL (Negative) H Urine Nitrite Negative (Negative) Urine Bilirubin Negative (Negative) Urine Urobilinogen Normal mg/dL (Negative) Urine Leukocyte Esterase Negative /uL (Negative) Urine RBC 1 /hpf (0 - 4) Urine Microscopic WBC 1 /HPF (0-5) Urine Squamous Epithelial Cells Few /hpf (<5) Urine Bacteria Few /hpf (None Seen) H Urine Mucus Few (None Seen) Urine Glucose 1+ mg/dL (Normal) H Microbiology Microbiology Date/Time Source Procedure Growth Status 10/15/24 01:00 Nose MRSA Screen - Final Complete Labs and/or images reviewed: Labs reviewed by me, Image(s) reviewed by me Assessment/Plan Assessment/Plan Covering Dr. 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) #Acute metabolic/toxic encephalopathy; most likely due to uremia #Normocytic anemia due to chronic kidney disease #Hypertensive kidney disease with ESRD #Diabetes mellitus type 2 with hyperglycemia with hemoglobin A1c of 6% #Dyslipidemia #Hypothyroidism #Metabolic syndrome with morbid obesity #Irritable bowel syndrome #Inflammatory arthritis #Anxiety/Depression; no suicide ideation/plan #Urinary incontinence #GERD Reviewed available blood work and imaging studies Nephrology guided treatment as inpatient; had hemodialysis yesterday; will be discharged home and was scheduled for hemodialysis on Saturday at 13:15 at [facility]; information instruction was provided to the patient IR placed right chest hemodialysis catheter To follow up with Nephrology for ESRD as outpatient; will need referral by primary care provider To follow up with Rheumatology for inflammatory arthritis as outpatient; will need referral by primary care provider Continue insulin therapy as outpatient Continue diuretics and antihypertensive medications as outpatient Continue levothyroxine as outpatient Continue antidepressants as outpatient Continue PPIs as outpatient To follow up with Urology as outpatient for urinary incontinence; will need referral by primary care provider To follow up with GI as outpatient for irritable bowel syndrome and GERD; will need referral by primary care provider To be seen in discharge clinic on Saturday October 26, 2024 Goals of care discussed with the patient for 20 minutes; full code Late Entry. This medical document was created using an electronic medical record system with computerized dictation system. Although this document has been carefully reviewed, there might still be some phonetic and typographical errors. These areas are purely typographical due to imperfections of the software programs, and do not reflect any compromise in the patient's medical care. Plan discussed with: Patient, Other (Nurse) My Orders Orders - BARTOLO LYON MD Procedure Category Date Status Time Basic Metabolic Panel LAB 10/22/24 Verified 04:00 Complete Blood Count LAB 10/22/24 Verified 04:00 Date of Service: Oct 21, 2024 Billing Provider: BARTOLO LYON MD Common Visit Codes: [id number] INP/OBS CARE(HIGH) Secondary Visit Codes: [id number] CARE PLAN 30 MINUTES (20 minutes) BARTOLO LYON MD Oct 21, 2024 10:52
--- NOTE | 2024-10-21 13:33 | DVHPN2 ---
Progress Note Date Seen: Oct 21, 2024 Medical Necessity Reason Pt with a Central, PICC or Fol: No Subjective Patient reports: Feels better Objective vital signs Vital Sign Date Time Temp Pulse Resp B/P (MAP) Pulse Ox O2 Delivery O2 Flow Rate FiO2 10/21/24 12:57 97.8 57 19 146/77 (100) 97 97.8 10/21/24 08:00 Room Air* 0 21 Total Intake and Output 10/20/24 10/20/24 10/21/24 15:00 23:00 07:00 Intake Total 500 ml 100 ml Balance 500 ml 100 ml medications Current Medications Medications Dose Ordered Sig/Yisel Route Start Time Stop Time Status Last Admin Dose Admin Nitroglycerin 0.4 mg Q5MINP PRN SL 10/13/24 23:00 Morphine Sulfate 2 mg Q30M PRN IV 10/13/24 23:00 Metolazone 5 mg DAILY PO 10/15/24 10:00 10/21/24 10:20 5 MG Pantoprazole Sodium 40 mg DAILY IV 10/15/24 10:00 10/21/24 10:19 40 MG Heparin Sodium (Porcine) 5,000 units Q12HR SC 10/14/24 10:00 10/21/24 10:18 5,000 UNITS Amlodipine Besylate 10 mg DAILY PO 10/14/24 10:00 10/21/24 10:20 10 MG Aspirin 81 mg DAILY PO 10/14/24 10:00 10/21/24 10:19 81 MG Atorvastatin Calcium 40 mg HS PO 10/14/24 22:00 10/20/24 21:39 40 MG Carvedilol 6.25 mg Q12HR PO 10/14/24 10:00 10/21/24 10:21 6.25 MG Levothyroxine Sodium 25 mcg QAM@0600 PO 10/14/24 06:00 10/21/24 06:07 25 MCG Oxybutynin Chloride 5 mg Q12HR PO 10/14/24 10:00 10/21/24 10:19 5 MG Sertraline HCl 25 mg DAILY PO 10/14/24 10:00 10/21/24 10:19 25 MG Sumatriptan Succinate 25 mg Q2HP PRN PO 10/13/24 23:30 10/20/24 21:39 25 MG Diagnostic Test (Pha) 1 strip ACHS 10/14/24 07:00 10/21/24 11:28 1 STRIP Insulin Human Regular HS SC 10/14/24 22:00 10/20/24 21:36 4 UNITS Insulin Human Regular AC SC 10/14/24 07:00 10/21/24 11:32 6 UNITS Dextrose 50 ml UD PRN IV 10/13/24 23:30 Insulin Glargine 20 units HS SC 10/14/24 00:45 10/20/24 21:37 20 UNITS Acetaminophen 650 mg Q6HP PRN PO 10/14/24 08:30 10/19/24 00:16 650 MG Hydralazine HCl 50 mg TID PO 10/14/24 22:00 10/21/24 06:07 50 MG Bumetanide 1 mg BIDD PO 10/17/24 06:00 10/21/24 06:07 1 MG Examination: GENERAL:Normal, CVS:Normal, ABDOMEN:Normal laboratory and microbiology Laboratory Tests 10/21/24 04:36 10/13/24 16:15 Test 10/21/24 04:36 Range/Units Serum Glucose 169 H 74-106 mg/dL Microbiology Date/Time Source Procedure Growth Status 10/15/24 01:00 Nose MRSA Screen - Final Complete Problem List/Assessment/Plan Problem List/Assessment/Plan ESRD ---new start HD Biopsy-proven underlying diabetic nephropathy--follows my clinic Hypertension Morbid obesity + double stranded DNA reports sees Rheum technical services rep for chair time with DCD pending- possible dc if obtains time. continue HD tomorrow if remains admitted Hepatitis panel wnl Blood pressure control Plan discussed with: Patient Dietary Evaluation Review Comments: 1) Consider CCHO 60gm + renal standard diet 2) Refer CDE on DC 3) Monitor PO intake, lab values and I/O Expected Outcomes/Goals: To meet >75% estimated needs Fu 3-5 days Critical Care Time (mins): 25 MONICA GARCIA MD Oct 21, 2024 13:33
[2024-10-21 14:07] LABS: Anti-Centromere B Antibody <0.2 AI (0.0-0.9); Anti-Jo-1 Antibody <0.2 AI (0.0-0.9); Anti-Nuclear Antibody Direct Positive (Negative); Anti-dsDNA Antibody 14 IU/mL (0-9); Antichromatin Antibody <0.2 AI (0.0-0.9); Antiscleroderma-70 Antibody 0.6 AI (0.0-0.9); Sjogren's Anti-SS-A Antibody <0.2 AI (0.0-0.9); Sjogren's Anti-SS-B Antibody <0.2 AI (0.0-0.9)
[2024-10-21] MEDS ORDERED: INSLANTI SC (14:52)
[2024-10-21] MEDS ORDERED: HYDR50TA47 PO (14:52)
[2024-10-21] MEDS ORDERED: LEVO25TA6 PO (14:52)
[2024-10-21] MEDS ORDERED: BUM1T PO (14:52)
[2024-10-21] MEDS ORDERED: OXYB5TAB14 PO (14:52)
--- NOTE | 2024-10-21 14:59 | DVHDS2 ---
Discharge Summary Date of Admission Oct 13, 2024 at 22:49 Date of Discharge: Oct 21, 2024 Admitting Diagnosis Nausea and vomiting due to uremia Wounds: Healing wound of right chest hemodialysis catheter with minimal tenderness with no discharge/bleeding Labs/Diagnostic Data: Laboratory Results Test 10/21/24 11:29 10/21/24 04:36 10/20/24 08:41 10/17/24 06:15 POC Glucose 233 mg/dl (70-106) Sodium Level 140 mmol/L (136-145) Potassium Level 3.6 mmol/L (3.5-5.1) Chloride Level 101 mmol/L (98-107) Carbon Dioxide Level 30 mmol/L (20-31) Anion Gap 9 (5-15) Blood Urea Nitrogen 35 mg/dL (9-23) Creatinine 3.45 mg/dL (0.550-1.02) Glomerular Filtration Rate Calc 14 mL/min (>90) BUN/Creatinine Ratio 10.1 (10.0-20.0) Serum Glucose 169 mg/dL (74-106) Calcium Level 9.3 mg/dL (8.7-10.4) Phosphorus Level 5.1 mg/dL (2.4-5.1) Anti-Nuclear Antibody Screen Positive (Negative) Anti-Nuclear Antibody Comment Comment (.) JOSE-1 Antibody <0.2 AI (0.0-0.9) SS-A/Ro Antibody <0.2 AI (0.0-0.9) SS-B/La Antibody <0.2 AI (0.0-0.9) Sm Antibody <0.2 AI (0.0-0.9) FOCUSER Antibody <0.2 AI (0.0-0.9) Scl-70 (Scleroderma) Antibody 0.6 AI (0.0-0.9) Anti-Double Strand DNA Antibody 14 IU/mL (0-9) Chromatin Antibody <0.2 AI (0.0-0.9) Centromere B Antibody <0.2 AI (0.0-0.9) Magnesium Level 2.1 mg/dL (1.6-2.6) Vitamin D 25-Hydroxy 33.2 ng/mL (30.0-100) Test 10/15/24 05:16 10/14/24 09:19 10/13/24 17:52 10/13/24 16:15 Prothrombin Time 9.9 sec (9.3-11.8) Prothrombin Time INR 0.93 (0.9-1.15) Activated Partial Thromboplast Time 27.1 SEC (24.5-34.5) Hepatitis A IgM Antibody Negative Hepatitis B Surface Antigen Negative (Negative) Hepatitis B Core IgM Antibody Negative (Negative) Hepatitis C Antibody Negative (Negative) Urine Color Colorless (Yellow) Urine Clarity Clear (Clear) Urine pH 6.0 (5.0-9.0) Urine Specific [place] 1.010 (1.001-1.035) Urine Protein 2+ (Negative) Urine Ketones Negative (Negative) Urine Blood Trace /uL (Negative) Urine Nitrite Negative (Negative) Urine Bilirubin Negative (Negative) Urine Urobilinogen Normal mg/dL (Negative) Urine Leukocyte Esterase Negative /uL (Negative) Urine RBC 1 /hpf (0 - 4) Urine Microscopic WBC 1 /HPF (0-5) Urine Squamous Epithelial Cells Few /hpf (<5) Urine Bacteria Few /hpf (None Seen) Urine Mucus Few (None Seen) Urine Glucose 1+ mg/dL (Normal) Troponin I High Sensitivity 28 ng/L (</=34) White Blood Count 9.2 10^3/uL (4.4-10.8) Red Blood Count 3.59 10^6/uL (4.0-5.20) Hemoglobin 11.0 g/dL (12.2-16.2) Hematocrit 32.2 % (36.0-46.0) Mean Corpuscular Volume 89.7 fL (80.0-100.0) Mean Corpuscular Hemoglobin 30.6 pg (28.0-32.0) Mean Corpuscular Hemoglobin Concent 34.1 g/dL (32.0-36.0) Red Cell Distribution Width 14.0 % (11.8-14.3) Platelet Count 219 10^3/uL (140-450) Mean Platelet Volume 10.4 fL (6.9-10.8) Neutrophils (%) (Auto) 78.4 % (37.0-80.0) Lymphocytes (%) (Auto) 15.1 % (10.0-50.0) Monocytes (%) (Auto) 4.2 % (0.0-12.0) Eosinophils (%) (Auto) 1.7 % (0.0-7.0) Basophils (%) (Auto) 0.6 % (0.0-2.0) Neutrophils # (Auto) 7.2 10 ^3/uL (1.6-8.6) Lymphocytes # (Auto) 1.4 10 ^3/uL (0.4-5.4) Monocytes # (Auto) 0.4 10 ^3/uL (0-1.3) Eosinophils # (Auto) 0.2 10 ^3/uL (0-0.8) Basophils # (Auto) 0.1 10 ^3/uL (0-0.2) Nucleated Red Blood Cells 0.0 % Lactic Acid Level 1.1 mmol/L (0.4-2.0) Total Bilirubin 0.2 mg/dL (0.2-1.0) Aspartate Amino Transferase (AST) 17 U/L (13-40) Alanine Aminotransferase (ALT) 13 U/L (7-40) Alkaline Phosphatase 85 U/L (46-116) B-Type Natriuretic Peptide 103.63 pg/mL (0-100) Total Protein 6.4 g/dL (5.7-8.2) Albumin 3.8 g/dL (3.2-4.8) Thyroid Stimulating Hormone (TSH) 1.35 uIU/mL (0.55-4.78) Other Laboratory Tests 10/21/24 04:36 10/13/24 16:15 Brief Hx & Hospital Course: Covering Dr. Villanueva: A 69-year-old female patient; with multiple comorbidities; who presented to the ER with nausea and vomiting and was found to have uremia. 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) #Acute metabolic/toxic encephalopathy; most likely due to uremia; resolved after hemodialysis #Normocytic anemia due to chronic kidney disease #Hypertensive kidney disease with ESRD #Diabetes mellitus type 2 with hyperglycemia with hemoglobin A1c of 6% #Dyslipidemia #Hypothyroidism #Metabolic syndrome with morbid obesity #Irritable bowel syndrome #Inflammatory arthritis #Anxiety/Depression; no suicide ideation/plan #Urinary incontinence #Aortic root enlargement #GERD Reviewed available blood work and imaging studies Nephrology guided treatment as inpatient; had hemodialysis yesterday; will be discharged home and was scheduled for hemodialysis on Saturday at 13:15 at [facility]; information instruction was provided to the patient; Graduation Coach arranged dialysis as outpatient IR placed right chest hemodialysis catheter To follow up with Nephrology for ESRD as outpatient; will need referral by primary care provider To follow up with Rheumatology for inflammatory arthritis as outpatient; will need referral by primary care provider Continue insulin therapy as outpatient Continue diuretics and antihypertensive medications as outpatient Continue levothyroxine as outpatient Continue antidepressants as outpatient Continue PPIs as outpatient To follow up with Urology as outpatient for urinary incontinence; will need referral by primary care provider To follow up with GI as outpatient for irritable bowel syndrome and GERD; will need referral by primary care provider To follow up with Cardiology as outpatient for aortic root enlargement; will need referral by primary care provider To be seen in discharge clinic on Saturday October 26, 2024 Physical examination documented in the progress note of the day of discharge. Late Entry. This medical document was created using an electronic medical record system with computerized dictation system. Although this document has been carefully reviewed, there might still be some phonetic and typographical errors. These areas are purely typographical due to imperfections of the software programs, and do not reflect any compromise in the patient's medical care. Operations or Procedures Right chest hemodialysis catheter insertion by IR on October 15, 2024 Condition at Discharge: Stable Final Diagnosis/Problems List Discharge Disposition: Home Discharge Instruct/Medications Diet: Renal Activity: No Restrictions, As Tolerated Follow Up/Referral: Discharge Clinic [facility] On Saturday at [address] Lyon/Dr. Gutierrez; Hemodialysis as arranged above; PCP within 2 weeks; Nephrology within 2 to 4 weeks; Rheumatology within 2 to 4 weeks; Urology within 2 to 4 weeks; Cardiology within 2 to 4 weeks Medications: As per EMR Scheduled Alendronate Sodium (Alendronate Sodium), 70 MG PO Q7D, (Reported) Amlodipine Besylate (Norvasc Tablet), 2 TAB PO DAILY, (Reported) Aspirin (Aspir-Low), 81 MG PO DAILY, (Reported) Atorvastatin Calcium (Lipitor), 1 TAB PO DAILY, (Reported) Bumetanide (Bumex Tablet), 1 MG PO BIDD Gabapentin (Gabapentin), 300 MG PO BID, (Reported) Hydralazine Hcl (Hydralazine Hcl), 50 MG PO TID Insulin Glargine (Lantus), 20 UNITS SC HS Levothyroxine Sodium (Levothyroxine Sodium), 25 MCG PO QAM@0600 Oxybutynin Chloride (Oxybutynin Chloride), 5 MG PO Q12HR Sertraline Hcl (Sertraline Hcl), 25 MG PO DAILY, (Reported) Miscellaneous Medications Carvedilol (Coreg), 3.125 MG OR, (Reported) Linaclotide Base (Linzess), 145 MCG OR, (Reported) Sumatriptan Succinate (Sumatriptan Succinate), 25 MG PO, (Reported) Discontinued Medications Finerenone (Kerendia), 20 MG PO DAILY, (Reported) Furosemide (Furosemide), 20 MG PO BIDD, (Reported) Discharge Statement: "Patient was advised to return to the ER or call 911 if any headaches, dizziness, shortness of breath, chest pain, abdominal pain, bleeding, fevers, or worsening of medical condition. Patient was counseled about treatment plan, medications, possible side effects, patientverbalized understanding. All questions were answered to the best of my ability. This discharge took greater then 30 minutes in planning, reviewing documentation, counseling the patient, and discussing with other team members." ASSESSMENT ASSESSMENT Assessment Date of Service: Oct 21, 2024 Billing Provider: BARTOLO LYON MD Common Visit Codes: [id number] DISCH DAY >30min BARTOLO LYON MD Oct 21, 2024 14:59
== END 2024-10-21 21:15 | disposition home or self-care (01) | DRG 673 ==
LOC: ER 15:13 → OVERFLOW 22:49 → WEST WING 10-14 18:39
PROVIDERS: ADMIT Internal Medicine; ATTEND Internal Medicine
PROC: 0JH63XZ Insertion of Tunneled Vascular Access Device into Chest Subcutaneous Tissue and Fascia, Percutaneous Approach (ICD-10-PCS; principal; 2024-10-15)
PROC: 02H633Z Insertion of Infusion Device into Right Atrium, Percutaneous Approach (ICD-10-PCS; 2024-10-15)
PROC: B5181ZA Fluoroscopy of Superior Vena Cava using Low Osmolar Contrast, Guidance (ICD-10-PCS; 2024-10-15)
PROC: B548ZZA Ultrasonography of Superior Vena Cava, Guidance (ICD-10-PCS; 2024-10-15)
PROC: 5A1D70Z Performance of Urinary Filtration, Intermittent, Less than 6 Hours Per Day (ICD-10-PCS; 2024-10-15)
PROC: 5A1D70Z Performance of Urinary Filtration, Intermittent, Less than 6 Hours Per Day (ICD-10-PCS; 2024-10-17)
PROC: 5A1D70Z Performance of Urinary Filtration, Intermittent, Less than 6 Hours Per Day (ICD-10-PCS; 2024-10-20)
DX: N17.0 Acute kidney failure with tubular necrosis (principal); G92.8 Other toxic encephalopathy; I12.0 Hypertensive chronic kidney disease with stage 5 chronic kidney disease or end stage renal disease; R18.8 Other ascites; N18.6 End stage renal disease; E86.0 Dehydration; E11.65 Type 2 diabetes mellitus with hyperglycemia; E66.01 Morbid (severe) obesity due to excess calories; D63.1 Anemia in chronic kidney disease; G43.909 Migraine, unspecified, not intractable, without status migrainosus; K58.9 Irritable bowel syndrome, unspecified; K21.9 Gastro-esophageal reflux disease without esophagitis; M81.0 Age-related osteoporosis without current pathological fracture; R32 Unspecified urinary incontinence; Z66 Do not resuscitate; E11.22 Type 2 diabetes mellitus with diabetic chronic kidney disease; E78.5 Hyperlipidemia, unspecified; E03.9 Hypothyroidism, unspecified; F32.A Depression, unspecified; M13.88 Other specified arthritis, other site; E88.810 Metabolic syndrome; F41.9 Anxiety disorder, unspecified; Z90.49 Acquired absence of other specified parts of digestive tract; Z88.8 Allergy status to other drugs, medicaments and biological substances; Z79.82 Long term (current) use of aspirin; Z88.1 Allergy status to other antibiotic agents; Z99.2 Dependence on renal dialysis; Z83.3 Family history of diabetes mellitus; Z82.49 Family history of ischemic heart disease and other diseases of the circulatory system; Z80.3 Family history of malignant neoplasm of breast; Z79.899 Other long term (current) drug therapy; Z79.83 Long term (current) use of bisphosphonates
CPT/HCPCS: 36415; 71045; 72110; 80048; 80053; 80074; 81001; 82306; 82962; 83516; 83605; 83735; 83880; 83970; 84100; 84443; 84484; 85025; 85610; 85730; 86038; 86225; 86235; 87081; 90935; 93005; 93306; 99152; C1894; G0378; J1642; J1815; J2250; J2405; J2470

== ENCOUNTER 2024-12-10 10:34 | Outpatient (CLI) | payer MEDICAID ==
[~2024-12-10 10:34] MED LIST changes: -BACDST PO; +BUM1T PO; -DOXY100C79 PO; -FINE20TA PO; -FURO20TA3 PO; +HYDR50TA47 PO; +INSLANTI SC; +LEVO25TA6 PO; +OXYB5TAB14 PO
[2024-12-10 11:25] LABS: Hematocrit 34.4 % (36.0-46.0); Hemoglobin 11.5 g/dL (12.2-16.2); Mean Corpuscular Hemoglobin 30.5 pg (28.0-32.0); Mean Corpuscular Volume 91.2 fL (80.0-100.0); Nucleated Red Blood Cells % 0.0 %
[2024-12-10 11:41] LABS: Alanine Aminotransferase 16 U/L (7-40); Albumin 3.9 g/dL (3.2-4.8); Alkaline Phosphatase 83 U/L (46-116); Anion Gap 9 (5-15); BUN/Creatinine Ratio 9.1 (10.0-20.0); Calcium 8.7 mg/dL (8.7-10.4); Carbon Dioxide 29 mmol/L (20-31); Chloride 106 mmol/L (98-107); Cholesterol 116 mg/dL (< 200); Potassium 4.0 mmol/L (3.5-5.1); Sodium 144 mmol/L (136-145); Total Protein 7.0 g/dL (5.7-8.2); Triglycerides 142 mg/dL (< 150)
[2024-12-10 11:54] LABS: Bilirubin, Total 0.2 mg/dL (0.2-1.0); Blood Urea Nitrogen 35 mg/dL (9-23); Glucose 72 mg/dL (74-106); HDL Cholesterol 32 mg/dL (40-59)
== END 2024-12-10 17:00 | disposition home or self-care (01) ==
LOC: LAB 10:34
PROVIDERS: ATTEND Internal Medicine Rheumatology
DX: N18.6 End stage renal disease (principal); M25.50 Pain in unspecified joint; Z68.41 Body mass index [BMI] 40.0-44.9, adult
CPT/HCPCS: 36415; 80053; 80061; 82306; 83036; 84443; 85025

== ENCOUNTER 2025-01-22 18:17 | Emergency (ER) | payer MEDICAID ==
[~2025-01-22] VITALS: Ht 160 cm; Wt 100.0 kg
--- NOTE | 2025-01-22 18:43 | ED.PDOC ---
History of Present Illness HPI Comments 69-year-old female who came to ER via EMS for a nausea and vomiting. Patient does have a history of hypertension, diabetes, end-stage renal disease, on dialysis AV Saturday and Saturday. Patient was having her dialysis session earlier today, when she started experiencing generalized weakness, cold, clammy, dizziness, blurred vision, with the episodes nausea or vomiting. Patient was able to finish her dialysis session before going with the emergency room. Blood pressure upon arrival 172/68 mm Hg Chief Complaint: Nausea/Vomiting Time Seen by MD: 18:43 Primary Care Provider: DIANA Allergies: Coded Allergies: Nitrofurantoin (Verified Allergy, Mild, NAUSEA/ VOMITING, 10/09/24) Home Meds Active Scripts Hydralazine Hcl (Hydralazine Hcl) 50 Mg Tab, 50 MG PO TID for 90 Days, #270 TAB Prov:BARTOLO LYON MD 10/21/24 Oxybutynin Chloride (Oxybutynin Chloride) 5 Mg Tab, 5 MG PO Q12HR for 90 Days, #180 TAB Prov:BARTOLO LYON MD 10/21/24 Bumetanide (Bumex Tablet) 1 Mg Tab, 1 MG PO BIDD for 30 Days, #60 TAB Prov:BARTOLO LYON MD 10/21/24 Levothyroxine Sodium (Levothyroxine Sodium) 25 Mcg Tab, 25 MCG PO QAM@0600 for 90 Days, #90 TAB Prov:BARTOLO LYON MD 10/21/24 Insulin Glargine (Lantus) 100 Unit/Ml Inj, 20 UNITS SC HS for 90 Days, #15 ML 1 Refill Prov:BARTOLO LYON MD 10/21/24 Reported Medications Sumatriptan Succinate (Sumatriptan Succinate) 25 Mg Tab, 25 MG PO, MG 10/28/23 Amlodipine Besylate (NORVASC TABLET) 5 Mg Tb, 2 TAB PO DAILY, #30 TAB 5 Refills 10/28/23 Linaclotide Base (LINZESS) 145 Mcg Cap, 145 MCG OR, CAP 10/28/23 Carvedilol (COREG) 3.125 Mg Tab, 3.125 MG OR, TAB 10/28/23 Sertraline Hcl (Sertraline Hcl) 50 Mg Tab, 25 MG PO DAILY for 30 Days, MG 10/28/23 Alendronate Sodium (Alendronate Sodium) 70 Mg Tab, 70 MG PO Q7D, TAB 10/28/23 Aspirin (Aspir-Low) 81 Mg Tab, 81 MG PO DAILY for 30 Days, MG 10/28/23 Gabapentin (Gabapentin) 300 Mg Cap, 300 MG PO BID for 30 Days, MG 10/28/23 Atorvastatin Calcium (Lipitor) 40 Mg Tab, 1 TAB PO DAILY, #30 TAB 5 Refills 10/28/23 Information Source: Patient Mode of Arrival: EMS Severity: Moderate Timing: Hours Duration: Intermittent Past Medical History PAST MEDICAL HISTORY: CKF, DM, ESRD, High Lipids, HTN Surgical History: Cholecystectomy Surgical History (Other): Dialysis Saturday [employer] 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 Family History Family History: Unknown Social History Smoker: Non-Smoker Alcohol: Denies ETOH Use Drugs: Denies Drug Use Lives In: Home Constitutional: reports: fatigue, weakness; denies: chills, diaphoresis, fever, malaise, sweats, others EENTM: reports: blurred vision; denies: double vision, ear bleeding, ear discharge, ear drainage, ear pain, ear ringing, eye pain, eye redness, hearing loss, mouth pain, mouth swelling, nasal discharge, nose bleeding, nose congestion, nose pain, photophobia, tearing, throat pain, throat swelling, voice changes, others Respiratory: denies: cough, hemoptysis, orthopnea, SOB at rest, shortness of breath, SOB with excertion, stridor, wheezing, others Cardiovascular: denies: chest pain, dizzy spells, diaphoresis, Dyspnea on exertion, edema, irregular heart beat, left arm pain, lightheadedness, palpitations, PND, syncope, others Gastrointestinal: reports: nausea, vomiting; denies: abdomen distended, abdominal pain, blood streaked bowels, constipated, diarrhea, dysphagia, difficulty swallowing, hematemesis, melena, poor appetite, poor fluid intake, rectal bleeding, rectal pain, others Genitourinary: denies: abnormal vagina bleeding, burning, dyspareunia, dysuria, flank pain, frequency, hematuria, incontinence, pain, , vagina discharge, urgency, others Neurological: reports: dizziness; denies: fainting, headache, left sided numbness, left sided weakness, numbness, paresthesia, pre-existing deficit, right sided numbness, right sided weakness, seizure, speech problems, tingling, tremors, weakness, others Musculoskeletal: denies: back pain, gout, joint pain, joint swelling, muscle pain, muscle stiffness, neck pain, others Integumetry: denies: bruises, change in color, change in hair/nails, dryness, laceration, lesions, lumps, rash, wounds, others Allergic/Immunocompromised: denies: Difficulty Healing, Frequent Infections, Hives, Itching, others Hematologic/Lymphatic: denies: anemia, blood clots, easy bleeding, easy brui sing, swollen glands, others Endocrine: denies: excessive hunger, excessive sweating, excessive thirst, ex cessive urination, flushing, intolerance to cold, intolerance to heat, unexplained weight gain, unexplained weight loss, others Psychiatric: denies: anxiety, bipolar disorder, depression, hopeless, panic disorder, schizophrenia, sleepless, suicidal, others Physical Exam General Appearance: No Apparent Distress, Normal HEENT: Normal ENT Inspection, Pharynx Normal, TMs Normal Neck: Full Range of Motion, Non-Tender, Normal, Normal Inspection Respiratory: Chest Non-Tender, Lungs Clear, No Accessory Muscle Use, No Res piratory Distress, Normal Breath Sounds, Other (Left dialysis port chest wall) Cardiovascular: No Edema, No JVD, No Murmur, No Gallop, Normal Peripheral Pulses, Regular Rate/Rhythm Breast Exam: Deferred Gastrointestinal: No Organomegaly, Non Tender, No Pulsatile Mass, Normal Bowel Sounds, Soft Genitalia: Deferred Pelvic: Deferred Rectal: Deferred Extremities: No calf tenderness, Normal capillary refill, Normal inspection, Normal range of motion, Non-tender, No pedal edema Musculoskeletal : Apperance: Normal Neurologic: Alert, racebook writer II-XII nml as Tested, No Motor Deficits, Normal Affect, Normal Mood, No Sensory Deficits Cerebellar Function: Normal Reflexes: Normal Skin: Dry, Normal Color, Warm Lymphatic: No Adenopathy Was a procedure done? Was a procedure done?: No Differential Dx Considerations may include: Anemia, electrolyte imbalance, end-stage renal disease X-Ray, Labs, Meds, VS Vital Signs Date Time Temp Pulse Resp B/P (MAP) Pulse Ox O2 Delivery O2 Flow Rate FiO2 01/22/25 21:13 98.3 72 18 130/73 (92) 95 98.3 01/22/25 18:23 97.7 67 16 172/68 97 97.7 Lab Test 01/22/25 18:46 Range/Units White Blood Count 7.1 4.4-10.8 10^3/uL Red Blood Count 3.63 L 4.0-5.20 10^6/uL Hemoglobin 11.8 L 12.2-16.2 g/dL Hematocrit 34.4 L 36.0-46.0 % Mean Corpuscular Volume 94.8 80.0-100.0 fL Mean Corpuscular Hemoglobin 32.5 H 28.0-32.0 pg Mean Corpuscular Hemoglobin Concent 34.3 32.0-36.0 g/dL Red Cell Distribution Width 14.5 H 11.8-14.3 % Platelet Count 264 140-450 10^3/uL Mean Platelet Volume 9.0 6.9-10.8 fL Neutrophils (%) (Auto) 75.2 37.0-80.0 % Lymphocytes (%) (Auto) 15.1 10.0-50.0 % Monocytes (%) (Auto) 7.2 0.0-12.0 % Eosinophils (%) (Auto) 1.8 0.0-7.0 % Basophils (%) (Auto) 0.7 0.0-2.0 % Neutrophils # (Auto) 5.4 1.6-8.6 10 ^3/uL Lymphocytes # (Auto) 1.1 0.4-5.4 10 ^3/uL Monocytes # (Auto) 0.5 0-1.3 10 ^3/uL Eosinophils # (Auto) 0.1 0-0.8 10 ^3/uL Basophils # (Auto) 0 0-0.2 10 ^3/uL Nucleated Red Blood Cells 0.1 % Sodium Level 140 136-145 mmol/L Potassium Level 3.9 3.5-5.1 mmol/L Chloride Level 99 98-107 mmol/L Carbon Dioxide Level 33 H 20-31 mmol/L Anion Gap 8 5-15 Blood Urea Nitrogen 23 9-23 mg/dL Creatinine 2.40 H 0.550-1.02 mg/dL Glomerular Filtration Rate Calc 21 >90 mL/min BUN/Creatinine Ratio 9.6 L 10.0-20.0 Serum Glucose 99 74-106 mg/dL Calcium Level 9.4 8.7-10.4 mg/dL Magnesium Level 2.1 1.6-2.6 mg/dL Total Bilirubin 0.5 0.2-1.0 mg/dL Aspartate Amino Transferase (AST) 23 13-40 U/L Alanine Aminotransferase (ALT) 15 7-40 U/L Alkaline Phosphatase 109 46-116 U/L Total Protein 7.8 5.7-8.2 g/dL Albumin 4.3 3.2-4.8 g/dL Current Medications Medications (Trade) Dose Ordered Sig/Yisel Route Start Time Stop Time Status Last Admin Ondansetron HCl (Zofran Po) 4 mg ONCE ONCE PO 01/22/25 18:45 01/22/25 18:46 DC 01/22/25 18:45 Time of 1ST Reevaluation: 18:38 Reevaluation 1ST: Unchanged Patient Education/Counseling: Diagnosis, Treatment Family Education/Counseling: No Family Present SEPSIS Sepsis Screen Date sepsis recognized/suspect: Jan 22, 2025 Time Sepsis recognized/suspect: 1822 Recent Procedure: No On Antibiotic Therapy: No Respiratory Rate >20: No Heart Rate >90: No Temp<36 C (96.8 F) or >38.3 C: No SBP <90 or MAP <65 mmHG: No New Acute Mental Status Change: No Is the patient on CPAP, BIPAP,: No Physician Orders Electrocardigram (01/22/25 18:35) Vital Signs Date Time Temp Pulse Resp B/P (MAP) Pulse Ox O2 Delivery O2 Flow Rate FiO2 01/22/25 21:13 98.3 72 18 130/73 (92) 95 98.3 01/22/25 18:23 97.7 67 16 172/68 97 97.7 Laboratory Tests Test 01/22/25 18:46 White Blood Count 7.1 10^3/uL (4.4-10.8) Medications Medications Dose Ordered Sig/Yisel Route Start Time Stop Time Status Last Admin Dose Admin Ondansetron HCl 4 mg ONCE ONCE PO 01/22/25 18:45 01/22/25 18:46 DC 01/22/25 18:45 Departure 1 Departure Time of Disposition: 20:40 Impression: Primary Impression: Near syncope Additional Impression: ESRD on dialysis Disposition: 01 HOME / SELF CARE / HOMELESS Condition: Stable Discharged With: Self Critical Care Note Critical Care Time?: No Stability Stability form required: No Heart Score Heart Score: Heart Score Response (Comments) Value History N/A 0 EKG N/A 0 Age N/A 0 Risk Factors N/A 0 Troponin N/A 0 Total 0 I personally scribed for KENDELL CRAIN MD ([email or web address]) on 01/22/25 at 18:43. Electronically submitted by Roman Cortez ([facility]). KENDELL CRAIN MD Jan 22, 2025 18:43
[2025-01-22] MEDS: ONDANSETRON ODT 4 MG TAB PO ONE (18:45)
[2025-01-22 19:09] LABS: Hematocrit 34.4 % (36.0-46.0); Hemoglobin 11.8 g/dL (12.2-16.2); Mean Corpuscular Hemoglobin 32.5 pg (28.0-32.0); Mean Corpuscular Volume 94.8 fL (80.0-100.0); Nucleated Red Blood Cells % 0.1 %
[2025-01-22 19:18] LABS: Alanine Aminotransferase 15 U/L (7-40); Albumin 4.3 g/dL (3.2-4.8); Alkaline Phosphatase 109 U/L (46-116); Anion Gap 8 (5-15); BUN/Creatinine Ratio 9.6 (10.0-20.0); Bilirubin, Total 0.5 mg/dL (0.2-1.0); Blood Urea Nitrogen 23 mg/dL (9-23); Calcium 9.4 mg/dL (8.7-10.4); Chloride 99 mmol/L (98-107); Glucose 99 mg/dL (74-106); Magnesium 2.1 mg/dL (1.6-2.6); Potassium 3.9 mmol/L (3.5-5.1); Sodium 140 mmol/L (136-145); Total Protein 7.8 g/dL (5.7-8.2)
[2025-01-22 19:21] LABS: Carbon Dioxide 33 mmol/L (20-31)
[2025-01-22 21:13] VITALS: BP 130/73; PULSE 72; RESP 18; TEMP 98.3; O2SAT 95
== END 2025-01-22 21:14 | disposition home or self-care (01) ==
LOC: ER 18:17 → EDBD 18:17 → ER 21:14
DX: I12.0 Hypertensive chronic kidney disease with stage 5 chronic kidney disease or end stage renal disease (principal); E11.22 Type 2 diabetes mellitus with diabetic chronic kidney disease; N18.6 End stage renal disease; R55 Syncope and collapse; E78.5 Hyperlipidemia, unspecified; Z79.899 Other long term (current) drug therapy; Z79.83 Long term (current) use of bisphosphonates; Z79.82 Long term (current) use of aspirin; Z79.890 Hormone replacement therapy; Z88.1 Allergy status to other antibiotic agents; Z90.49 Acquired absence of other specified parts of digestive tract; Z99.2 Dependence on renal dialysis
CPT/HCPCS: 36415; 80053; 83735; 85025; 99283; Q0162

== ENCOUNTER 2025-03-01 10:09 | Outpatient (CLI) | payer MEDICAID ==
[2025-03-01 10:45] LABS: Hematocrit 32.6 % (36.0-46.0); Hemoglobin 11.3 g/dL (12.2-16.2); Mean Corpuscular Hemoglobin 30.8 pg (28.0-32.0); Mean Corpuscular Volume 89.2 fL (80.0-100.0); Nucleated Red Blood Cells % 0.0 %
[2025-03-01 11:07] LABS: Alanine Aminotransferase 18 U/L (7-40); Alkaline Phosphatase 108 U/L (46-116); Anion Gap 11 (5-15); BUN/Creatinine Ratio 13.2 (10.0-20.0); Calcium 9.7 mg/dL (8.7-10.4); Chloride 100 mmol/L (98-107); Potassium 4.3 mmol/L (3.5-5.1); Sodium 142 mmol/L (136-145); Total Protein 7.2 g/dL (5.7-8.2)
[2025-03-01 11:09] LABS: Albumin 4.1 g/dL (3.2-4.8); Bilirubin, Total 0.3 mg/dL (0.2-1.0)
[2025-03-01 11:10] LABS: Blood Urea Nitrogen 51 mg/dL (9-23); Carbon Dioxide 31 mmol/L (20-31); Glucose 67 mg/dL (74-106)
[2025-03-02 12:07] LABS: Anti-dsDNA Antibody 15 IU/mL (0-9)
== END 2025-03-01 17:00 | disposition home or self-care (01) ==
LOC: LAB 10:09
PROVIDERS: ATTEND Internal Medicine Rheumatology
DX: M35.9 Systemic involvement of connective tissue, unspecified (principal)
CPT/HCPCS: 36415; 80053; 85025; 86160; 86225